=== PATIENT | male | born 1950 | race Caucasian/White ===

== ENCOUNTER → 2019-05-30 | Outpatient (CLI) | payer MEDICARE ==
[~2019-05-30] MED LIST: ACE65ERTAB PO; ACET-683 PO; ALLO100T PO; ASPI81CH33 PO; ASPI81TA26 PO; CITA40TA4 PO; NEUR600T PO; ONDA8TAB7 PO; PERCOCET PO; PRAV40TA2 PO; PRED20TA PO; PROC10TA4 PO; TAMS1CAP17 PO; TOPI1CAP4 PO; TOPI50TA9 PO
--- NOTE | 2019-05-30 14:14 | REP ---
Whole body radionuclide bone scan: History: Wedge compression fracture T9-T10. No comparison imaging. Technique: 21.7 mCi technetium 99m MDP is injected and standard whole body bone scan imaging was acquired. Scintigraphic findings: There is uptake in bilateral kidneys and the urinary bladder. There are multiple foci of abnormal uptake in the axial skeleton suggestive of skeletal metastatic disease. These include a large ring-like lesion in the iliac bone on the right side adjacent to the SI joints, a small focus in the intertrochanteric femur on the right, abnormal somewhat eccentric uptake in T12, slightly increased pedicle uptake on the right at L3, and foci of increased uptake at T11 and T10. There is suspicious uptake in the scapula on the left along its superior margin. There is a focus of increased uptake in or adjacent to the acromioclavicular joint on the right. There is abnormal uptake in the anterior end of the left first rib, the right anterior fifth and seventh ribs. Lastly, there is a focus of increased uptake in what appears to be the distal phalanx of the left fourth toe. This may be arthritic. Impression: Metastatic skeletal disease pattern. Electronically Signed by Bladimir Woodruff MD 05/30/2019 02:34 P
== END ==
LOC: M RAD 09:44
PROVIDERS: ATTEND Orthopaedic Surgery
DX: S22.070A Wedge compression fracture of T9-T10 vertebra, initial encounter for closed fracture (principal)
CPT/HCPCS: 78306; A9503

== ENCOUNTER 2019-06-09 11:43 | Inpatient (IN) | payer MEDICARE ==
[~2019-06-09] VITALS: Ht 172.7 cm; Wt 88.6 kg
[2019-06-09] MEDS ORDERED: ACE65ERTAB PO (12:15)
[2019-06-09] MEDS ORDERED: TAMS1CAP17 PO (12:15)
[2019-06-09] MEDS ORDERED: PRAV40TA2 PO (12:15)
[2019-06-09] MEDS ORDERED: NEUR600T PO (12:15)
[2019-06-09] MEDS ORDERED: ASPI81CH33 PO (12:15)
[2019-06-09] MEDS ORDERED: CITA40TA4 PO (12:15)
[2019-06-09] MEDS ORDERED: TOPI1CAP4 PO (12:15)
[2019-06-09] MEDS ORDERED: MORPHINE 4 MG/ML 1ML VIAL/SYRINGE (J2270) IV ONE (12:45)
[2019-06-09] MEDS: GASTROGRAFIN SOLUTION 30ML PO SCH ×2 (13:42→14:29)
[2019-06-09 14:02] LABS: INR 1.04; PROTHROMBIN TIME 13.3 SECONDS (11.8-14.0)
[2019-06-09 14:03] LABS: PARTIAL THROMBOPLASTIN TIME 20.1 SECONDS (25.0-38.4)
[2019-06-09 14:25] LABS: ALBUMIN 3.5 GM/DL (3.2-5.2); ALT/SGPT 43 U/L (12-78); BILIRUBIN,DIRECT < 0.1 MG/DL (0.0-0.2); BILIRUBIN,TOTAL 0.3 MG/DL (0.2-1.0); BLOOD UREA NITROGEN 28 MG/DL (7-18); CALCIUM LEVEL 9.9 MG/DL (8.8-10.2); CARBON DIOXIDE LEVEL 25 MEQ/L (21-32); CHLORIDE LEVEL 110 MEQ/L (98-107); CREATININE FOR GFR 0.81 MG/DL (0.70-1.30); GLOMERULAR FILTRATION RATE > 60.0 (>42); GLUCOSE, FASTING 103 MG/DL (70-100); LDH LACTATE DEHYDROGENASE 877 U/L (87-241); LIPASE 68 U/L (73-393); POTASSIUM SERUM 4.3 MEQ/L (3.5-5.1); SODIUM LEVEL 141 MEQ/L (136-145); TOTAL PROTEIN 7.9 GM/DL (6.4-8.2)
[2019-06-09 14:31] LABS: BASO % 0.2 % (0.0-1.0); EOS # 0.1 10^3/uL (0.0-0.5); EOS % 0.8 % (0.0-3.0); HEMATOCRIT 50.2 % (42.0-52.0); HEMOGLOBIN 16.7 g/dl (13.5-17.5); LYMPH # 2.3 10^3/uL (1.5-5.0); LYMPH % 19.9 % (24.0-44.0); MEAN CORPUSCULAR HEMOGLOBIN 31.2 pg (27.0-33.0); MEAN CORPUSCULAR HGB CONC 33.3 g/dl (32.0-36.5); MEAN CORPUSCULAR VOLUME 93.7 fl (80.0-96.0); MONO # 0.8 10^3/uL (0.0-0.8); MONO % 6.7 % (0.0-5.0); NEUTROPHILS # 8.5 10^3/uL (1.5-8.5); NEUTROPHILS % 71.9 % (36.0-66.0); PLATELET COUNT, AUTOMATED 174 10^3/uL (150-450); RED BLOOD COUNT 5.36 10^6/uL (4.30-6.10); WHITE BLOOD COUNT 11.8 10^3/uL (4.0-10.0)
[2019-06-09] MEDS ORDERED: ISOVUE-370 76% 100ML VIAL (Q9967) As Ordered ONE (14:42)
--- NOTE | 2019-06-09 15:28 | REP ---
CT thoracic spine: 06/09/2019. Indication: Thoracic pain. Metastatic disease. Comparison: No previous CT evaluations are available for direct comparison. Technique: Axial images of the thoracic spine were obtained following IV administration of Isovue 370. Coronal and sagittal images were provided. Findings: There is a pathologic T9 compression fracture with approximately 50% loss of craniocaudal height. There is abnormal soft tissue in the paraspinal region particularly on the left at this level. There is no retropulsion of fracture fragments into the spinal canal. Additional areas of heterogeneous bone density are present, particularly on the left of T12 consistent with metastatic disease without pathologic compression deformity. There are no areas of significant spinal canal narrowing detected. Please see dedicated CT chest report for additional details. Impression: Pathologic compression deformity of T9 as described. Additional metastatic disease of T12 without significant pathologic compression. Electronically Signed by Trav Camacho DO 06/09/2019 03:21 P
--- NOTE | 2019-06-09 16:26 | REP ---
CT CHEST WITH IV CONTRAST: TECHNIQUE: Axial contrast enhanced images from the thoracic inlet to the upper abdomen using 100 mL Isovue 370 intravenous contrast material with multiplanar reformations. There is a large right hilar and mediastinal mass with nodular extension into the adjacent right upper lobe. Mass at its epicenter measures approximately 6.3 x 7.2 cm. Adjacent enlarged lymph nodes are seen superior to the mass up to 3.6 x 1.9 cm just above the level of the aortic arch with two smaller lymph nodes more posteriorly, just posterior to the right subclavian artery. Calcified right hilar and subcarinal lymph nodes are present. There is no left hilar adenopathy. There is no axillary adenopathy. There are scattered atherosclerotic calcifications of the thoracic aorta without aneurysm. There is no evidence of cardiomegaly. There is no pleural or pericardial effusion. There is mild bibasilar fibro atelectatic change. There is diffuse peribronchial thickening of the right upper lobe with mild interstitial infiltrates superiorly. Central nodular confluent density is present along the superior portion of the dominant mass. A separate satellite nodule measures 1.5 cm in right suprahilar region. The dominant mass significantly compresses the superior vena cava but does not obstruct it. There is encasement of the pulmonary artery braches supplying the right upper lobe. The mass abuts the right upper lobe bronchus but does not encase it. Lytic lesion is seen centrally in the right scapula. This measures about 1.7 cm in diameter. There is a large area of lytic destruction of the medial aspect of the left scapula. There is moderate compression of the T9 vertebral body with metastatic involvement. There is mild compression of T12 vertebral body with metastatic involvement. There is a fracture of the right 8th rib. IMPRESSION: Large right hilar and mediastinal mass with adjacent nodular infiltration of the right upper lobe. There is diffuse right upper lobe peribronchial thickening and superior right upper lobe interstitial infiltrate. There is adjacent right superior mediastinal adenopathy. Significant compression of the superior vena cava with encasement of the right upper lobe pulmonary artery branch. Pathologic fractures of T9 and T12 vertebral bodies. Metastatic lesions are seen in the scapulae, left greater than right. Also noted is a fracture of the lateral aspect of the right 8th rib. Electronically Signed by José Manuel Orlando MD 06/11/2019 09:30 A
--- NOTE | 2019-06-09 16:46 | REP ---
REASON: Rectal bleeding. CONTRAST: 100 mL Isovue-370. PRIORS: None. There is an enhancing nodule in the right adrenal gland which measures 2.6 cm. There are bilateral renal cysts. The largest is on the right and measures 5.1 cm. There is an infrarenal abdominal aortic aneurysm measuring 3.4 cm in its greatest AP dimension. Heavy calcific atherosclerotic change is seen in the common iliac arteries. The liver and spleen are within normal limits. There are tiny hepatic cysts. There is a single cholelith noted. The pancreas is within normal limits. There is no evidence of free fluid or free air in the abdomen. The intraabdominal bowel loops and their mesenteries are within normal limits. There is a large left adrenal gland nodule which measures 3.3 cm and has very high Hounsfield density readings. Incidental scattered colonic diverticula are noted without pericolonic fatty infiltration. CT PELVIS: There is corpora amylacea. There is no free fluid or free air. There is sigmoid colon diverticulosis. Bone window technique throughout the exam shows the bones to be demineralized with chronic spinal, hip, sacroiliac joint degenerative changes. IMPRESSION:1. Bilateral adrenal gland nodules. I can not confirm benignity due to the high Hounsfield unit density readings. There are no precontrast enhanced images to review. I would recommend pre and post Gadolinium enhanced adrenal MRI. 2. There is at least one cholelith. 3. Infrarenal abdominal aortic aneurysm as described above. 4. Diverticulosis. 5. Other findings as described above. Electronically Signed by Iggy Hernandez DO 06/10/2019 10:25 A
[2019-06-09] MEDS ORDERED: ACET-683 PO (17:20)
[2019-06-09] MEDS ORDERED: ASPI81TA26 PO (17:20)
[2019-06-09] MEDS ORDERED: TOPI50TA9 PO (17:20)
[2019-06-09] MEDS ORDERED: PRAVASTATIN 20 MG TAB PO SCH (18:00)
[2019-06-09] MEDS ORDERED: ACETAMINOPHEN 500 MG TAB PO PRN (18:00)
--- NOTE | 2019-06-09 18:13 | HPEPDOC ---
[facility] Medical History & Physical Date of Admission Jun 09, 2019 Date of Service: Jun 09, 2019 History and Physical CHIEF COMPLAINT: bone pain HISTORY OF PRESENT ILLNESS: Patient is a 69M with PMH PAD s/p fem fem bypass and CAD s/p PCI presented to the ER with complaints with pain. He recently was at a different hospital with complaints of pain and was found to have vertebral compression fracture and was referred to ortho w/ Dr. Villegas. He continued to complained of multiple sites of bone pain and was sent for bone scan which was suggestive but diffuse metastatic lesions. He was sent to the ER for further workup which showed large R. hilar/mediastinal mass with lymphadenopathy with significant compression of the SVC. He reports no complaints apart from pain in his legs and L. arm suggestive of bone pain. He denies any significant chest pain, facial/arm swelling, significant SOB. Stated he is at his baseline otherwise. Denies any other symptoms. PAST MEDICAL HISTORY: Refer to HPI PAST SURGICAL HISTORY: Stent placement in legs PCI fem fem bypass SOCIAL HISTORY: Smokes 1ppd. Denies alcohol or drug use. FAMILY HISTORY: Father - DM Mother- stomach cancer ALLERGIES: Please see below. REVIEW OF SYSTEMS: 10 point review of system negative except as stated in HPI HOME MEDICATIONS: Please see below. PHYSICAL EXAMINATION: General: No acute distress, Alert Eyes: Normal sclera, EOMI, SHARON HENT: Atraumatic, neck supple, no neck vein distension, no facial plethora or edema Cardiovascular: Normal rate, normal rhythm. No murmurs appreciated. Pulmonary: Clear to auscultation b/l, no wheezing MSK: No extremity swelling, pain on palpation of legs and L. arm GI: Soft, nontender, nondistended Skin: Warm and dry Neuro: CN grossly intact. No focal deficits. Psych: oriented x 3 LABORATORY DATA: See below. IMAGING: CT Chest- IMPRESSION: Large right hilar and mediastinal mass with adjacent nodular infiltration of the right upper lobe. There is diffuse right upper lobe peribronchial thickening and superior right upper lobe interstitial infiltrate. There is adjacent right superior mediastinal adenopathy. Significant compression of the superior vena cava with encasement of the right upper lobe pulmonary artery branch. Pathologic fractures of T9 and T12 vertebral bodies. Metastatic lesions are seen in the scapulae, left greater than right. Also noted is a fracture of the lateral aspect of the right 8th rib. CT Thoracic spine- Impression: Pathologic compression deformity of T9 as described. Additional metastatic disease of T12 without significant pathologic compression. CT Abdomen/Pelvis- IMPRESSION: 1. Bilateral adrenal gland nodules. I can not confirm benignity due to the high Hounsfield unit density readings. There are no precontrast enhanced images to review. I would recommend pre and post Gadolinium enhanced adrenal MRI. 2. There is at least one cholelith. 3. Infrarenal abdominal aortic aneurysm as described above. 4. Diverticulosis. 5. Other findings as described above. MICROBIOLOGY: Please see below. ASSESSMENT AND PLAN: 1. SVC Compression - 2/[address] - Reported no symptoms suggestive of SVC compression. - HD stable, no significant SOB. - Grade 0. - Cardiothoracic consulted. 2. Lung mass - Likely metastatic lung ca, evident in bone scans. - Will need tissue biopsy for treatment. Pulmonology consulted for bronchoscopy in AM. 3. PAD - s/p stents in LLE. - Holding home medication at this time until patient no longer NPO. 4. CAD - Resume home medications when patient no longer NPO. - No active chest pain. Reported recent cardiac catherization with no coronary artery obstruction. Code status: Full code Vital Signs Vital Signs Date Time Temp Pulse Resp B/P (MAP) Pulse Ox O2 Delivery O2 Flow Rate FiO2 06/09/19 16:01 84 18 123/83 (96) 97 Room Air 06/09/19 11:44 99.0 Laboratory Data Labs 24H Laboratory Tests 2 06/09/19 13:39: Prothrombin Time 13.3, Prothromb Time International Ratio 1.04, Activated Partial Thromboplast Time 20.1L, Anion Gap 6L, Glomerular Filtration Rate > 6 0.0, Lactic Acid Level 1.2, Calcium Level 9.9, Total Bilirubin 0.3, Direct Bilirubin < 0.1, Aspartate Amino Transf (AST/SGOT) 38H, Alanine Aminotransferase (ALT/SGPT) 43, Alkaline Phosphatase 169H, Lactate Dehydrogenase 877H, Total Protein 7.9, Albumin 3.5, Albumin/Globulin Ratio 0.80L, Lipase 68L 06/09/19 14:17: Immature Granulocyte % (Auto) 0.5, Neutrophils (%) (Auto) 71.9H, Lymphocytes (%) (Auto) 19.9L, Monocytes (%) (Auto) 6.7H, Eosinophils (%) (Auto) 0.8, Basophils (%) (Auto) 0.2, Neutrophils # (Auto) 8.5, Lymphocytes # (Auto) 2.3, Monocytes # (Auto) 0.8, Eosinophils # (Auto) 0.1, Basophils # (Auto) 0.0, Nucleated Red Blood Cells % (auto) 0.0 CBC/BMP Laboratory Tests 06/09/19 13:39 06/09/19 14:17 Home Medications Scheduled Aspirin (Aspirin EC) 81 Mg Tablet.dr, 81 MG PO DAILY Citalopram Hydrobromide (Citalopram HBr) 40 Mg Tablet, 40 MG PO DAILY Gabapentin (Neurontin) 600 Mg Tablet, 600 MG PO TID TOOK HIS MORNING DOSE BUT STATES THAT HIS PCP WANTS TO TRY A DIFFERENT APPROACH TO HIS PAIN Pravastatin Sodium (Pravastatin Sodium) 40 Mg Tablet, 40 MG PO QPM WITH EVENING MEAL Tamsulosin Hcl (Tamsulosin HCl) 0.4 Mg Capsule, 0.4 MG PO DAILY Topiramate (Topiramate) 50 Mg Tablet, 50 MG PO QHS Scheduled PRN Acetaminophen (Acetaminophen) 500 Mg Tablet, 1,000 MG PO Q8H PRN for PAIN Allergies Coded Allergies: No Known Allergies (Unverified , 06/09/19) A-FIB/CHADSVASC A-FIB History Current/History of A-Fib/PAF?: No KLAUS GRISSOM MD Jun 09, 2019 18:13
[2019-06-09] MEDS ORDERED: MORPHINE 4 MG/ML 1ML VIAL/SYRINGE (J2270) IV PRN (18:15)
[2019-06-09 19:55] VITALS: BP 142/78
[2019-06-09] MEDS ORDERED: DOCUSATE SODIUM 100 MG CAP PO PRN (20:00)
[2019-06-09] MEDS ORDERED: SENNA 8.6 MG TAB (SENOKOT) PO PRN (20:00)
--- NOTE | 2019-06-09 20:04 | CR ---
DATE OF CONSULTATION: 06/09/2019 REASON FOR CONSULTATION: Abnormal chest CT with pending superior vena cava (SVC) syndrome. Mr. Stoner is a 69-year-old male that was admitted through the emergency room today after being worked up for back pain. There was concern on a recent bone scan for metastatic lesions to his back and therefore, he was sent to the emergency room. The patient has been having new onset of low back pain that he describes as really bad back pain for the past two months. He has been losing weight and has had a weight loss of 22 pounds in the past month because of what he describes as lack of appetite. He is a smoker, has had no increase in his shortness of breath or chest discomfort. He has bilateral chronic shoulder pain. He slept in a recliner in the past couple of weeks due to the pain in his back but he denies it is because of shortness of breath. However, he states he has always had trouble laying flat even since he was a child because of shortness of breath. He states he has never seen a journeyman pressman and has no known lung history. Denies any dizziness, change in vision or lightheadedness. He has a chronic cough that is worse at night. Describes a tickle in the back of his throat, attributes it to postnasal drip. He has not had any hemoptysis. No chest pain. PAST MEDICAL HISTORY: 1. Coronary artery disease status post stenting. 2. History of degenerative disc disease. 3. History of peripheral vascular disease status post fem-fem bypass with multiple arterial stenting of the lower extremities. 4. History of abdominal aortic aneurysm that has not been intervened on. 5. History cataract formation status post surgery. 6. History of nicotine dependence. 7. New onset of back pain. 8. History of left shoulder trauma. 9. Umbilical hernia repair. FAMILY HISTORY: Mother had stomach cancer. Father had myocardial infarction and diabetes. He had family members who of abdominal aortic aneurysm rupture. SOCIAL HISTORY: He denies any alcohol use. States he has an approximately 60 pack-year history of smoking. No illicit drug use. He has no pets at home. He does live with his , Isha. 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 He has no significant travel history. He was raised in [place]. REVIEW OF SYSTEMS: CONSTITUTIONAL: He has had a 22-pound weight loss, lack of appetite but no night sweats. He denies fever. CARDIAC: He has slept in a recliner as mentioned above. No palpitations. No lower extremity edema. No anginal discomfort. He does not experience anymore symptoms of claudication. He is exertionally dyspneic, states he is able to walk around a flat surface at his own pace but any exertional activities such as climbing stairs will cause him shortness breath. HEENT: He has had change in vision. No difficulty with swallowing. He has dentures. No difficulty with hearing. He wears glasses but no recent change in vision. No amaurosis fugax. PULMONARY: As per history of present illness (HPI). No history of tuberculosis, tuberculosis contacts. GASTROINTESTINAL (GI): No nausea or vomiting, but does have decrease in appetite. No constipation or abdominal pain. No blood in the stool. GENITOURINARY (): No pain or burning with urination. No hematuria or nocturia. ENDOCRINE: No history of diabetes. No increased thirst. No history of thyroid disease. No cold or hot intolerance. NEUROLOGIC: No unilateral weakness. No history of stroke, seizure or tremor. No recent head trauma. PSYCHIATRIC: No depression or mood swings. No anxiety. SKIN: No rash, jaundice or bruising. ALLERGY/IMMUNOLOGY: No known allergies. No history of asthma. No history of recurrent infections. SLEEP: No history of obstructive sleep apnea. Denies excessive daytime somnolence. PHYSICAL EXAMINATION: Temperature is 99.0, pulse is 89, respiratory rate is 18, blood pressure is 148/98 with a mean arterial pressure of 115, oxygen saturation is 97% on room air. HEENT: Sclerae clear and anicteric. Pupils equal and react to light. Mucous membranes are moist without lesions. Tongue is midline. Upper dentures are in place. Oropharynx without erythema or exudate. Mallampati 1. NECK: Supple. No tracheal deviation. I do not see any elevated jugular venous pulse (JVP). No carotid bruits. LYMPHATIC: No cervical, supraclavicular or axillary adenopathy. There is a lipoma in the left arm in the anterior medial aspect adjacent to the axilla. He states this has been there for 6-7 years. CHEST: There is no increased vascularity of the chest wall. There is a negative Bendena sign. I did lay the patient in the supine position and he was able to tolerate this without becoming orthopneic and without signs of central cyanosis. PULMONARY: Decreased breath sounds throughout with prolonged expiratory phase. There is a prolonged expiratory wheeze auscultated throughout both lung corona. I do not auscultate any rales or rhonchi. There is no dullness to percussion. CARDIAC: Regular S1, S2, distant without murmur, rub or gallop. No elevated JVP. No peripheral edema. ABDOMEN: Obese, soft, nontender, nondistended with a reducible umbilical hernia. There is also rectus diastasis. There is no discernible hepatosplenomegaly. No masses or hernia. EXTREMITIES: No cyanosis, clubbing or edema. Some chronic bronzing of the lower extremity bilaterally. Palpable pulses are present, radial and symmetric. Nails without clubbing or cyanosis. SKIN: Pale, as mentioned above with some chronic bronzing of the lower extremities. No new rashes. NEUROLOGIC: No unilateral weakness. No tremor. No myoclonus. Pupils are reactive. MUSCULOSKELETAL: Normal muscle tone for stated age. No evidence of joint effusion or recent fracture. The patient does have some limited motion of abduction of the upper extremities with shoulder pain in the left shoulder. LABORATORY EVALUATION: Shows a white blood cell count of 11.8, hemoglobin 16.7, hematocrit 50.2, platelet count 174. Chemistry shows a sodium 141, potassium 4.3, chloride is 110, bicarbonate of 25, BUN of 28, creatinine of 0.81 with a glucose of 103, lactic acid of 1.2, AST of 38, alkaline phosphatase of 169, lipase of 68, INR of 1.04. Chest CT: There is a large right paratracheal mediastinal mass that is measuring approximately 6 cm x 6.5 cm. It is adjacent to the right upper lobe. I believe there is also a mass in the right upper lobe which is approximately 2 cm. There is evidence of SVC compression within millimeters. There is also pulmonary artery compression. On thoracic films, there is evidence of compression of the T9 vertebral body with T12 metastatic involvement. There does appear to be a fracture of the right eighth rib. There appears to be possible bilateral adrenal involvement on the abdominal CT scan. IMPRESSION: 1. Abnormal chest CT with mediastinal mass, superior vena cava (SVC) compression with pending SVC syndrome. Currently, the patient does not have signs or symptoms of SVC syndrome but the appearance on his chest CT, there is very little contrast that could be passed in the SVC. Therefore, it is urgent for biopsy and treatment in order to decrease the risk of potential SVC syndrome. The patient has already eaten today and has been drinking. We will schedule for first thing in the morning for a biopsy with bronchoscopy, endobronchial ultrasound. The patient was consented. He understands the risk of bleeding, sore throat, cough, pneumothorax and . He understands the risk of injury to surrounding structures. Oncology, both medical and radiation, have already been alerted to this patient for urgent treatment. The patient will also likely need palliative treatment of the back pain. The most likely diagnosis of malignancy appears that this is a metastatic malignancy. I believe the patient will be in quite significant pain if biopsy was performed of the thoracic lesion. Therefore, endobronchial biopsy will be performed. 2. Back pain. I have added Percocet to his regimen possibly for some longer acting pain control. I have added steroids, one because of his wheezing and two because this may also help with his current pain and T9 compression. 3. Wheezing. I have added inhaled therapy to his regimen along with Solu-Medrol. Likely underlying chronic obstructive pulmonary disease given his history of smoking. 4. Smoking. Extensively counseled on smoking cessation. Thank you for this consultation. We will continue to follow this patient and plan and prepare for biopsy in the morning. DIAMANTE
--- NOTE | 2019-06-09 20:27 | CR ---
DATE OF CONSULTATION: 06/09/2019 The patient was seen at the request of Dr. Lovell of the hospitalist service for shortness of breath and a large mediastinal mass. HISTORY OF THE PRESENT ILLNESS: The patient is a 69-year-old white male who has been complaining of mid back pain for a number of weeks and who underwent workup with orthopedics, where he was found to have what looked to be metastatic axial skeletal disease on a bone scan. He has been becoming more progressively short of breath. He has difficulty pushing the cart around shopping, but is able to do the daily activities of living at home. He denies fever, chills, or sweats, but has lost about 22 pounds in weight. He denies chest pain or chest pressure. There is no dysphagia, but he has fatigue and markedly decreased appetite. He has a cough at night, which he describes as a tickle. It is not productive. He states that he had been sleeping in a recliner the last two months because of breathing. Nonetheless, he has never been able to lay flat ever since a child because of discomfort. PAST MEDICAL HISTORY: Peripheral vascular disease, status post arterial revascularizations. Coronary artery disease, status post stenting procedures. Degenerative disc disease. History of tobacco abuse of 30 pack years. By reports, abdominal aortic aneurysm, non-repaired. PAST SURGICAL HISTORY: As listed above. MEDICATIONS AT HOME: - Tylenol 500 mg every 8 hours as needed for pain - aspirin 81 mg daily - citalopram 40 mg daily - Neurontin 600 mg three times a day - pravastatin 40 mg nightly - tamsulosin 0.4 mg daily - topiramate 50 mg by mouth nightly. TRAVEL HISTORY: None to the [facility]. 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 EXPOSURES: No dogs, birds, or cats at home. HABITS: Has a 30-year pack history of smoking and still actively smoking. No alcohol or illicit drugs. 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 REVIEW OF SYSTEMS: Review of systems conducted by Dr. Montague. All systems are negative except those above referenced in the history of present illness. PHYSICAL EXAMINATION: Heart rate 89 with a regular rate and rhythm, respiratory rate 18 without the use of accessory muscles. He is 97% saturated on room air, and his blood pressure is 136/101 to 123/83. Temperature is 99.0. General: Well-developed, well-nourished white male in no acute distress but looking chronically ill and fatigued. Eyes: Pupils equal, round, and reactive to light. Extraocular muscles intact. Sclerae not icteric. Nose without deformity. Mouth shows his mucous membranes to be pink and moist. Lips and commissures without lesions. There is no thrush. He has upper dentures. The head is normocephalic. Neck is supple. There is no jugular venous distention. No subcutaneous emphysema. Trachea is midline. There is no cervical lymphadenopathy. He has 2+ carotid upstrokes. I did not elicit bruits. Lungs show inspiratory rales, particularly at the right base and wheezes during expiration heard best anteriorly on the right and the left superiorly. Percussion note is full to the diaphragm. Cardiac exam is without murmurs, clicks, gallops or rubs. I cannot feel his point of maximum impulse (PMI). S1, S2 are normal. Abdomen is soft, nontender. Bowel sounds are positive. There is no hepatomegaly. There is no costovertebral angle tenderness, but he does have lower spinal tenderness in the lower thoracic and lumbar spines. Extremities show no pretibial edema. No calf tenderness. No differential swelling of the upper extremities. It should be noted that there is no caput medusae over the chest, and his head is not swollen. Pulses shows a 2+ dorsalis pedis on the left and a trace of dorsalis pedis on the right. Neurologic: Shows II-XII intact along with gross motor and gross sensation intact. Gait is not tested. Psychiatric shows him to be awake and alert, oriented times three with appropriate mood and affect and conversational. His white count today is 11.8 with a hemoglobin and hematocrit of 16.7 and 50.2 respectively. Platelet count is 174. Differential shows 71% neutrophils, 19% lymphocytes, 6% monocytes. There are no immature forms. No toxic granulations. Chemistries show essentially normal electrolytes with a BUN and creatinine of 28 and 0.81, glucose of 103 with a calcium of 9.9 and a corresponding albumin of 3.5. His corrected calcium is 10.3, making him slightly hypercalcemic. AST is slightly elevated at 38 with a normal ALT. LDH is 877. PT/INR of 13.3 and 1.04 respectively with a PTT of 20.1 seconds. A chest x-ray is pending. His chest CT shows a very large mediastinal mass, which is impinging upon the vena cava. The vena cava measures 2 mm x 2 cm, as a thin sliver. He has a fairly large mass measuring 6 x 6 cm in diameter, and it extends into the lung. It is constricting the pulmonary artery on the right side at its take-off from the main pulmonary artery to 2 mm. He does look to have calcified nodes, both hilar and subcarinal. He has some emphysematous changes in the upper lobes. There is an infiltrative lesion in the apical segment of the upper lobe in addition to the large mass, also a large mass most likely in the middle lobe, no large mass in the upper lobe which is constricting the first order segmental bronchi. There looks to be a right adrenal mass, and the left adrenal has a normal configuration. There are a number of liver lucencies; I cannot tell whether these are cysts or metastases. The resolution is not great on the liver windows. His bone scan done on 05/30/2019 shows multiple axial points of uptake, including what looks to be T12 and T10 with numerous rib lucencies. Rib lucencies are on both sides. They no doubt represent rib and vertebral metastases. IMPRESSION: 1. Impending superior vena cava (SVC) syndrome. 2. Large mass, mediastinum and right lung. 3. Peripheral vascular disease. 4. Coronary artery disease. 5. Diffuse axial metastatic disease. 6. Hyperlipidemia. 7. Hypercalcemia. PLAN AND DISCUSSION: I have coordinated with the director of the cancer center, Salma Miles, as to our ability to offer him definitive treatment tomorrow, and she has answered to the affirmative. Oncology has been consulted by the hospitalist service already. Both radiation and medical oncology are on notice. Our responsibility is to establish a diagnosis, and I have asked Dr. Montague to opine of the doability of bronchoscopy and endobronchial ultrasound (EBUS), and she thinks she can obtain a diagnosis by that method rather than a mediastinoscopy. We have arranged for him to go to the operating room 8:30 tomorrow, and we will have pathology on standby for frozen section. Once establishing a diagnosis, oncology can decide what treatment modalities are the best. Right now, he does not have clinical SVC syndrome, and we have the luxury of overnight to do the diagnostic workup in the morning. He will be made nothing by mouth.
[2019-06-09] MEDS: MORPHINE 4 MG/ML 1ML VIAL/SYRINGE (J2270) IV PRN ×2 (20:30→23:49)
[2019-06-09] MEDS: GABAPENTIN 300 MG CAP PO SCH (20:31)
[2019-06-09] MEDS ORDERED: SLF 3 ML SYR IV PRN (20:45)
[2019-06-09] MEDS ORDERED: TOPIRAMATE (TopAMAX) 25 MG TAB PO SCH (21:00)
[2019-06-09] MEDS: methylPREDNISolone INJ 40 MG/1 ML VIAL (J2920) IV SCH (21:23)
[2019-06-09] MEDS: SLF 3 ML SYR IV SCH (21:23)
[2019-06-09] MEDS: PERCOCET 5MG/325MG TAB PO PRN (22:45)
[2019-06-10] VITALS (9 sets, daily range): BP systolic 127–154; BP diastolic 70–92
[2019-06-10] MEDS: IPRATROPIUM 0.5MG/ALBUTEROL 2.5MG INH SOL UD 3ML (DUONEB)(J7620) NEB SCH ×4 (02:00→14:00)
[2019-06-10] MEDS: ADVAIR HFA 230/21MCG INHALER INH SCH ×2 (02:11→07:30)
[2019-06-10] MEDS: methylPREDNISolone INJ 40 MG/1 ML VIAL (J2920) IV SCH ×2 (05:12→14:25)
[2019-06-10] MEDS: SLF 3 ML SYR IV SCH ×2 (05:13→14:26)
[2019-06-10] MEDS: MORPHINE 4 MG/ML 1ML VIAL/SYRINGE (J2270) IV PRN ×3 (05:13→14:05)
[2019-06-10 06:38] LABS: HEMATOCRIT 47.4 % (42.0-52.0); HEMOGLOBIN 16.1 g/dl (13.5-17.5); MEAN CORPUSCULAR HEMOGLOBIN 31.6 pg (27.0-33.0); MEAN CORPUSCULAR VOLUME 92.9 fl (80.0-96.0); PLATELET COUNT, AUTOMATED 171 10^3/uL (150-450); WHITE BLOOD COUNT 8.3 10^3/uL (4.0-10.0)
[2019-06-10 06:58] LABS: BLOOD UREA NITROGEN 27 MG/DL (7-18); CALCIUM LEVEL 9.8 MG/DL (8.8-10.2); CARBON DIOXIDE LEVEL 25 MEQ/L (21-32); CHLORIDE LEVEL 106 MEQ/L (98-107); CREATININE FOR GFR 0.93 MG/DL (0.70-1.30); GLOMERULAR FILTRATION RATE > 60.0 (>42); GLUCOSE, FASTING 162 MG/DL (70-100); SODIUM LEVEL 138 MEQ/L (136-145)
--- NOTE | 2019-06-10 07:26 | REP ---
CHEST, TWO VIEWS: Two views of the chest are performed. Large right hilar mass is visualized. Right upper lobe interstitial infiltrate is present. The heart is not enlarged. Moderate compression of T9 is noted. There are calcified mediastinal lymph nodes. IMPRESSION: Large right hilar mass also involving the right mediastinum. Moderate compression of T9. Electronically Signed by José Manuel Orlando MD 06/11/2019 11:36 A
[2019-06-10] MEDS ORDERED: LIDOCAINE 1% MDV 20ML VIAL As Ordered ONE ×2 (07:50→15:04)
[2019-06-10] MEDS ORDERED: CETACAINE SPRAY 5GM As Ordered ONE (07:50)
[2019-06-10] MEDS ORDERED: THROMBIN SOLN 5,000 UNITS VIAL As Ordered ONE (07:50)
[2019-06-10] MEDS ORDERED: PROPOFOL 200 MG/20 ML VIAL As Ordered ONE (07:50)
[2019-06-10] MEDS ORDERED: ROCURONIUM BROMIDE 50 MG/5 ML VIAL As Ordered ONE (07:51)
[2019-06-10] MEDS ORDERED: LIDOCAINE VISCOUS 2% SOLN 15ML UDC As Ordered ONE (07:51)
[2019-06-10] MEDS ORDERED: LIDOCAINE 2% INJ 100 MG/5 ML SYRINGE As Ordered ONE (07:51)
[2019-06-10] MEDS ORDERED: EPINEPHrine 1MG/10ML SYRINGE 1.5IN As Ordered ONE (07:51)
[2019-06-10] MEDS ORDERED: dexameTHASONE 4 MG/ML 1ML VIAL (J1100) As Ordered ONE (07:55)
[2019-06-10] MEDS ORDERED: ONDANSETRON 4MG/2ML VIAL (J2405) As Ordered ONE (07:55)
[2019-06-10] MEDS ORDERED: fentaNYL 100 MCG/2 ML INJECTION (J3010) As Ordered ONE ×2 (08:21→15:04)
[2019-06-10] MEDS ORDERED: MIDAZOLAM INJ 2 MG/2 ML VIAL (J2250) As Ordered ONE ×2 (08:24→15:04)
[2019-06-10] MEDS ORDERED: LIDOCAINE 2% INJ 100 MG/5 ML SDV (FOR ANES.) As Ordered ONE (08:35)
[2019-06-10] MEDS ORDERED: CitaloPRAM (CeleXA) 20 MG TAB PO SCH (09:00)
[2019-06-10] MEDS ORDERED: TAMSULOSIN 0.4 MG CAP PO SCH (09:00)
--- NOTE | 2019-06-10 09:47 | RO ---
DATE OF PROCEDURE: 06/10/2019 PROCEDURE: Abnormal chest CT, mediastinal mass pending SVC syndrome. POSTPROCEDURE DIAGNOSIS: Abnormal chest CT, mediastinal mass pending SVC syndrome. FINDINGS: Extrinsically compressed airways. PROCEDURE: Bronchoscopy with endobronchial ultrasound. PROCEDURALIST: Dr. Montague ANESTHESIA: General. GUT DROPPER: None. SPECIMENS OBTAINED: 1. Fine-needle aspiration of right paratracheal mass under endobronchial ultrasound. ESTIMATED BLOOD LOSS: Minimal. No replaced. COMPLICATIONS: No observed complications. DRAINS: No drains. DESCRIPTION OF PROCEDURE: After informed consent was reviewed with the patient in preoperative area he was brought back to OR number six. Anesthesia was initiated with an 8.5 endotracheal tube. Cetacaine spray was used to anesthetize the airway. Bronchoscope was then inserted into the airway after time-out was performed with two patient identifiers identifying correct site, correct position. The airways were extrinsically compressed trachea was fairly midline. Mabel was full right and left bronchus had thin mucous secretions throughout both airways. The right upper lobe was extrinsically compressed airways were swollen and no endobronchial lesions. RB 1 through 3 were normal without endobronchial lesions. The spur between the right upper lobe and the bronchus intermedius was splayed full minimal mucosal abnormalities. RB 4 through 10 were normal without endobronchial lesions LB 1 through 10 normal without endobronchial lesions. Minimal amounts of mucus. After all airways were suctioned bronchoscope was then retracted and the endobronchial ultrasound was inserted. There was an enlarged subcarinal node and an enlarged paratracheal mass. The paratracheal mass was over 5 cm based on the measurement from the endobronchial ultrasound. Biopsies were taken of the right paratracheal mass. On-site cytology suggested adequate sampling. After adequate sampling was obtained the endobronchial ultrasound was removed the 1T190 bronchoscope was reinserted all airways were suctioned. Hemostasis was assured and the bronchoscope was removed. The patient is extubated in recovery. There were no observed complications however postprocedure chest x-ray is still pending. [facility]
[2019-06-10] MEDS ORDERED: MORPHINE 4 MG/ML 1ML VIAL/SYRINGE (J2270) As Ordered ONE (09:59)
--- NOTE | 2019-06-10 10:04 | REP ---
Single view chest: 06/10/2019. Indication: New postoperative assessment. Comparison: Yesterday. Findings: There is no pneumothorax. No significant pleural effusion is present. Right hilar mass and patchy air space consolidations are noted. Impression: Large right hilar mass. No pneumothorax. Electronically Signed by Trav Camacho DO 06/10/2019 09:55 A
[2019-06-10] MEDS ORDERED: LR 1,000 ML IV SCH (10:15)
[2019-06-10] MEDS ORDERED: ONDANSETRON 4MG/2ML VIAL (J2405) IV PRN (10:15)
[2019-06-10] MEDS ORDERED: fentaNYL 100 MCG/2 ML INJECTION (J3010) IV PRN (10:30)
[2019-06-10] MEDS: GABAPENTIN 300 MG CAP PO SCH (10:53)
[2019-06-10] MEDS: PERCOCET 5MG/325MG TAB PO PRN ×2 (11:44→17:37)
[2019-06-10] MEDS ORDERED: NS 1,000 ML IV SCH (12:00)
--- NOTE | 2019-06-10 12:35 | CR ---
DATE OF CONSULTATION: 06/10/2019 REASON FOR THE CONSULT: New diagnosis of lung cancer. HISTORY OF PRESENT ILLNESS: This 69-year-old male, heavy smoker. He was admitted through the emergency room because of severe back pain and progressive shortness of breath. There was concern about a recent bone scan done as an outpatient, which showed metastatic lesion in his back, and that is why he was sent to the emergency room. He has had this back pain for the last 2 months with weight loss of about 22 pounds in the past month with loss of appetite. He is a heavy smoker of a pack per day for maybe the last 50 years. PAST MEDICAL HISTORY: Coronary artery disease. History of degenerative disc disease. Peripheral vascular disease, status post femoral-femoral bypass with multiple arterial stents of the lower extremities. History of abdominal aortic aneurysm that has not been operated upon. SOCIAL HISTORY: Is positive for smoking. REVIEW OF SYSTEMS: Positive for weight loss and back pain. PHYSICAL EXAM: He has normal vital signs. Chest shows normal breath sounds. No wheezes, rhonchi, or crackles. Heart exam revealed normal S1, S2, with no murmur. Abdomen showed no tenderness or rigidity. No organomegaly. LABS: Showed a white count of 11.8, hemoglobin of 16, hematocrit of 50, and platelet count 174. Chemistry showed sodium 141, potassium 4.3, chloride 110, and bicarbonate 25, BUN of 28, creatinine 0.8. The CT of the chest showed large right paratracheal mediastinal mass measuring approximately 6 cm x 8 x 5 cm adjacent to the right upper lobe. There is also pulmonary artery compression. On the thoracic films, there is evidence of compression of the T9 vertebral body with T12 metastatic involvement. Possible also, there is bilateral adrenal involvement in the abdomen CT abdomen. Immpression of the previous bone scan, done on 05/30/2019 showed increased uptake in multiple areas of the skeletal bone, mostly on T11 and T10, in addition to suspicious increased uptake in the scapula, suggestive of metastatic disease. ASSESSMENT AND PLAN: Patient was seen at the bedside with radiation oncology, and had a lengthy discussion with the patient. It does not appear that the patient is in acute respiratory distress or acute superior vena caval obstruction. Right now, clinically, there is no engorged vein or dilated anterior chest wall vein or swelling of the face. From my understanding, bronchoscopy was done today, and fine needle aspiration was done from the mass. A preliminary was small cell lung cancer. I had a lengthy discussion with the patient regarding possible treatment options. We are going to await the final pathology report and, most likely, the patient is going to require chemotherapy. We are going to insert a port in him for chemotherapy. The case was discussed with radiation oncology. Apparently, the patient has extensive stage small cell lung cancer, and the role of radiation therapy is for palliative pain to the back if needed. We are going to evaluate the need for inpatient chemotherapy versus giving the patient an appointment as outpatient for further chemotherapy.
[2019-06-10] MEDS ORDERED: PRED20TA PO (14:39)
[2019-06-10] MEDS ORDERED: diphenhydrAMINE INJ 50MG/ML VIAL (J1200) As Ordered ONE (15:03)
[2019-06-10] MEDS ORDERED: ceFAZolin 1GM INJ (J0690 PER 500MG) As Ordered ONE (15:04)
--- NOTE | 2019-06-10 15:04 | IRMSE ---
[facility] IR Moderate Sedation Eval. Date and Time Date: Jun 10, 2019 Time: 15:03 ASA Classification ASA Classification: II-Mild systemic disease Mallampati Score: I, II NPO: Yes Obstructive Sleep Apnea: No Interval Plan: moderate sedation SHINE BARTHOLOMEW MD Jun 10, 2019 15:04
--- NOTE | 2019-06-10 16:26 | POST-OPPD ---
Postoperative Procedure Note Date Of Procedure: Jun 10, 2019 Time Of Procedure: 16:25 PREOPERATIVE DIAGNOSIS: lung ca POSTOPERATIVE DIAGNOSIS: lung ca FINDINGS: patent right IJ PROCEDURE: right side port. ready to use. SURGEON: stuart ANESTHESIA: mod sed ESTIMATED BLOOD LOSS: < 5 ml COMPLICATIONS: none POSTOPERATIVE CONDITION: stable SHINE BARTHOLOMEW MD Jun 10, 2019 16:26
[2019-06-10] MEDS ORDERED: PERCOCET PO (17:04)
--- NOTE | 2019-06-10 19:11 | DS.PDOC ---
Discharge Summary General Date of Admission Jun 09, 2019 at 17:51 Date of Discharge 06/10/19 Discharge Summary PROCEDURES PERFORMED DURING STAY: [None]. ADMITTING DIAGNOSES: 1. Metastatic small cell lung cancer 2. PAD 3. CAD 4. SVC compression 1. Metastatic small cell lung cancer 2. PAD 3. CAD 4. SVC Compression COMPLICATIONS/CHIEF COMPLAINT: Lung Cancer Metastatic To Bone. HISTORY OF PRESENT ILLNESS: Patient is a 69M with PMH PAD s/p fem fem bypass and CAD s/p PCI presented to the ER with complaints with pain. He recently was at a different hospital with complaints of pain and was found to have vertebral compression fracture and was referred to ortho w/ Dr. Villegas. He continued to complained of multiple sites of bone pain and was sent for bone scan which was suggestive but diffuse metastati c lesions. He was sent to the ER for further workup which showed large R. hilar/mediastinal mass with lymphadenopathy with significant compression of the SVC. He reports no complaints apart from pain in his legs and L. arm suggestive of bone pain. He denies any significant chest pain, facial/arm swelling, significant SOB. Stated he is at his baseline otherwise. Denies any other symptoms. " HOSPITAL COURSE: Patient was evaluated urgently by cardiothoracic surgery as well as pulmonary at admission for large lung mass in R. hilar and mediastinal with SVC compression. Despite imaging, patient reports feeling at baseline apart from his bone pains. Denies any SOB or extremity/facial swellings. He underwent bronchoscopy with biopsy with prelim cytology showing small cell lung cancer. Subsequently evaluated by medical oncology and radiation oncology. Given that patient is stable at this time, it is recommended that patient get chemo port inserted as soon as possible for initiation of chemotherapy as outpatient. He underwent port placement the same day as bronchoscopy and still has no complaints apart from ongoing bone pain. Patient is discharged to f/u PMD, as well as oncology in the morning for follow up and hopefully initiation of chemotherapy. DISCHARGE MEDICATIONS: Please see below. ALLERGIES: Please see below. PHYSICAL EXAMINATION ON DISCHARGE: VITAL SIGNS: Please see below. General: No acute distress, Alert Eyes: Normal sclera, EOMI, SHARON HENT: Atraumatic, neck supple, no neck vein distension, no facial plethora or edema Cardiovascular: Normal rate, normal rhythm. No murmurs appreciated. Pulmonary: Clear to auscultation b/l, no wheezing MSK: No extremity swelling, pain on palpation of legs and L. arm GI: Soft, nontender, nondistended Skin: Warm and dry Neuro: CN grossly intact. No focal deficits. Psych: oriented x 3 LABORATORY DATA: Please see below. IMAGING: CT Chest- IMPRESSION: Large right hilar and mediastinal mass with adjacent nodular infiltration of the right upper lobe. There is diffuse right upper lobe peribronchial thickening and superior right upper lobe interstitial infiltrate. There is adjacent right superior mediastinal adenopathy. Significant compression of the superior vena cava with encasement of the right upper lobe pulmonary artery branch. Pathologic fractures of T9 and T12 vertebral bodies. Metastatic lesions are seen in the scapulae, left greater than right. Also noted is a fracture of the lateral aspect of the right 8th rib. CT Thoracic spine- Impression: Pathologic compression deformity of T9 as described. Additional metastatic disease of T12 without significant pathologic compression. CT Abdomen/Pelvis- IMPRESSION: 1. Bilateral adrenal gland nodules. I can not confirm benignity due to the high Hounsfield unit density readings. There are no precontrast enhanced images to review. I would recommend pre and post Gadolinium enhanced adrenal MRI. 2. There is at least one cholelith. 3. Infrarenal abdominal aortic aneurysm as described above. 4. Diverticulosis. 5. Other findings as described above. PROGNOSIS: POOR ACTIVITY: [As tolerated]. DIET: Regular diet DISCHARGE PLAN: f/u with Oncology in the morning for follow up and hopefully can start chemotherapy then f/u PMD DISPOSITION: 01 Home, Self-Care. DISCHARGE INSTRUCTIONS: f/u with Oncology in the morning for follow up and hopefully can start chemotherapy then f/u PMD ITEMS TO FOLLOWUP ON ON OUTPATIENT: Final pathology report from bronchoscopy DISCHARGE CONDITION: [Stable]. TIME SPENT ON DISCHARGE: 35 minutes. Vital Signs/I&Os Vital Signs Date Time Temp Pulse Resp B/P (MAP) Pulse Ox O2 Delivery O2 Flow Rate FiO2 06/10/19 17:37 18 Room Air 06/10/19 17:00 98.0 86 131/70 (90) 92 06/10/19 16:35 3 06/10/19 10:18 40 I&O- Last 24 Hours up to 6 AM 06/10/19 06:00 Intake Total 0 ml Output Total 450 ml Balance -450 ml Laboratory Data Labs 24H Laboratory Tests 2 06/09/19 21:54: Urine Color YELLOW, Urine Appearance CLEAR, Urine pH 5.0, Urine Specific Walters 1.044, Urine Protein NEGATIVE, Urine Glucose (UA) NEGATIVE, Urine Ketones NE GATIVE, Urine Blood NEGATIVE, Urine Nitrite NEGATIVE, Urine Bilirubin NEGATIVE, Urine Urobilinogen 0.2, Urine Leukocyte Esterase 1+H, Urine WBC (Auto) 3, Urine RBC (Auto) 1, Urine Hyaline Casts (Auto) 0, Urine Bacteria (Auto) NEGATIVE, Urine Squamous Epithelial Cells 0, Urine Uric Acid Crystals (Auto) SMALL, Urine Mucus (Auto) SMALL, Urine Sperm (Auto) 06/10/19 06:09: Nucleated Red Blood Cells % (auto) 0.0, Anion Gap 7L, Glomerular Filtration Rate > 60.0, Calcium Level 9.8 CBC/BMP Laboratory Tests 06/10/19 06:09 Microbiology Microbiology 06/09/19 Urine Culture, Received Pending Discharge Medications Scheduled Aspirin (Aspirin EC) 81 Mg Tablet.dr, 81 MG PO DAILY, (Reported) Citalopram Hydrobromide (Citalopram HBr) 40 Mg Tablet, 40 MG PO DAILY, (Reported) Gabapentin (Neurontin) 600 Mg Tablet, 600 MG PO TID, (Reported) TOOK HIS MORNING DOSE BUT STATES THAT HIS PCP WANTS TO TRY A DIFFERENT APPROACH TO HIS PAIN Pravastatin Sodium (Pravastatin Sodium) 40 Mg Tablet, 40 MG PO QPM, (Reported) WITH EVENING MEAL Prednisone (Prednisone) 20 Mg Tablet, 40 MG PO DAILY Tamsulosin Hcl (Tamsulosin HCl) 0.4 Mg Capsule, 0.4 MG PO DAILY, (Reported) Topiramate (Topiramate) 50 Mg Tablet, 50 MG PO QHS, (Reported) Scheduled PRN Acetaminophen (Acetaminophen) 500 Mg Tablet, 1,000 MG PO Q8H PRN for PAIN, (Reported) Oxycodone/Acetaminophen (Oxycodone-Acetaminophen 5-325) 1 Each Tablet, 1 TAB PO Q4HP PRN for MILD/MODERATE PAIN (PS 1-7) Allergies Coded Allergies: No Known Allergies (Unverified , 06/09/19) KLAUS GRISSOM MD Jun 10, 2019 19:11
--- NOTE | 2019-06-11 08:31 | REP ---
IR Ultrasound and fluoroscopy-guided port placement. IR Ultrasound of the neck. Clinical information: Lung ca. Physician: Dr. Nielsen. Procedure: The patient was advised of the benefits, risks, and alternatives of the procedure and informed consent was obtained. A time-out was performed with verification of the patient's name, MRN, site of procedure and type of procedure to be performed. The patient was positioned in the supine position on the angiographic table. The site was prepped and draped in the usual sterile fashion. Moderate sedation was not performed due to patient's respiratory status. The physician spent 45 minutes of continuous face to face time with the patient. Ultrasound of the neck reveals a patent and compressible right internal jugular vein. A blow pit helper radiograph reveals no gross abnormality. The neck and anterior chest wall were anesthetized with lidocaine. The right internal jugular vein was accessed using a microintroducer needle under ultrasound guidance, via a lateral approach. An 018 wire was advanced into the superior vena cava, the needle was removed and a microsheath was placed. An Amplatz wire was then passed into the inferior vena cava. An incision at the internal jugular vein access site and anterior chest wall were made using a scalpel. An incision was made at the anterior chest wall. A small pocket was created using a combination of blunt and sharp dissection. A tunneling device was then used to pass the catheter from the pocket to the neck puncture site. An 8-[employer] smart power port was then positioned in the pocket. The catheter was then measured and cut. The introducer sheath was exchanged for a peel-away sheath. The catheter was passed through the peel-away sheath into the internal jugular vein and the peel-away sheath was removed. The port tip was positioned at the right atrium. The port was then accessed with a Lama needle. The port flushes and aspirates well. The puncture site in the neck was closed. The chest wall incision was then closed with 2-0 Vicryl and 4-0 Monocryl. Glue and Steri-Strips were applied. A sterile dressing was then applied. The patient tolerated the procedure well and was returned to the PRU in stable condition. Estimated blood loss: <5 ml. Complications: None. Conclusion: 1. Successful placement of an 8-[place] [employer] smart power port via the right internal jugular vein. The port is ready for immediate use. 2. Patient to follow up in IR clinic in 2 weeks. Thank you for this referral. Electronically Signed by Priscilla Nielsen MD 06/11/2019 08:30 A
--- NOTE | 2019-06-11 09:56 | CR ---
NEW PATIENT RADIATION ONCOLOGY CONSULTATION DATE: 06/10/2019 CHART NUMBER: [id number] FOR: Dr. 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 STAGE: Extensive. ICD-10 CODE: 34.90. ECOG PERFORMANCE STATUS: 1. HISTORY OF PRESENT ILLNESS: The patient is 69 years old and is status post femoral bypass for a coronary artery disease as well as stent placement. He has been complaining of pain for the last several weeks becoming profoundly more intense. He was found by x-ray at a different hospital to have a vertebral compression fracture and was referred to ortho and seen by Dr. Villegas. His bone pain was primarily in his back but was actually involving multiple areas of his skeletal system and a bone scan was suggested multiple diffuse metastatic lesions. He was therefore sent to the emergency room which revealed a large hilar/mediastinal mass with adenopathy and significant compression of the superior vena cava SVC. He did not relate to any other new complaints with the exception of the quite severe exacerbating a progress of pain. He did not show any significant signs of dyspnea and had no venous distension facial swelling to support a clinical diagnosis of a superior vena cava syndrome even though radiographically there was evidence of compromise and compression of the superior vena cava. He had pain in his legs and his left arm. He was seen by Dr. Avendano who suggested that the patient undergo a bronchoscopy with biopsy. Dr. Reno Montague saw the patient this morning and performed a biopsy and according to cytologic evaluation it is suggestive of a small cell carcinoma. He is referred to us today for evaluation of radiotherapy. He is also seeing Dr. Blackwell at this time. PAST MEDICAL HEALTH: The patient has a long history of smoking and a history of vascular disease and a status post femoral-femoral bypass and CAD. He has COPD and denies any other major symptoms at this time. The pain, however is quite debilitating. PAST SURGICAL HEALTH: Stent placement in his legs, percutaneous coronary intervention (PCI), fem-fem bypass. SOCIAL HISTORY: He smokes one pack per day for virtually all of his adult life, sometimes smokes more sometimes slightly less. He denies alcohol or recreational drug usage. FAMILY HISTORY: His father had diabetes. Mother with stomach cancer. ALLERGIES: No known drug allergies. MEDICATIONS: - aspirin 81 mg by mouth daily - citalopram 40 mg tablets daily - gabapentin 600 mg tablet by mouth three times a day - pravastatin 40 mg by mouth every evening - tamsulosin 0.4 mg capsule daily - topiramate 50 mg by mouth at bedtime - acetaminophen as needed pain LABORATORY DATA AND/OR X-RAY FINDINGS: CT scan of the abdomen and pelvis revealed bilateral adrenal gland nodules, abdominal aortic aneurysm, diverticulosis. CT scan of the thoracic spine revealed a pathologic compression of T9 with additional what appears to be metastatic disease involving T10 without any cord compression. CT scan of the chest revealed a large hilar mass and mediastinal mass with adjacent nodular infiltration of the right upper lobe. There was diffuse right upper lobe peribronchial thickening with superior right upper lobe interstitial infiltrates. There was noted to be adjacent right superior mediastinal lymphadenopathy. There was significant compression of the superior vena cava with encasement of the right upper lobe pulmonary artery branch. Pathologic fractures T9, T12. Metastatic lesions seen in the scapula, left greater than the right also a fracture of the lateral aspect of the right 8th rib. REVIEW OF SYSTEMS: Respiratory: The patient may have some respiratory symptoms with a only minimal cough. He does not report any significant dyspnea. He denies hemoptysis, hiccups. He does have some pleuritic pain but denies wheezing. Psychiatric: Denies delusions, hallucinations, mood changes, mood swings. Neurologic: He denies any disorientation, dizziness, gait problems, headaches, insomnia, memory loss, neuropathy, paralysis, seizures, sensory problems or stroke. He specifically denies any signs which would point to a cord compression. Integumentary: He denies alopecia, blisters, bruising, dry skin, facial burning, problems with the fingernails or toenails, photosensitivity, pruritus, rashes or urticaria. Genitourinary: He has some occasional dysuria, occasional frequency, denies hematuria, impotence, incontinence, nocturia, renal stone disease, retrograde ejaculation, scrotal swelling, urgency or changes in urine color. Gastrointestinal: Denies significant changes in bowel habits with occasional constipation. Denies diarrhea, heartburn, hematemesis, hematochezia, hemorrhoids, melanin, nausea, pain, early satiety, or vomiting. HEENT: Denies ear pain, epistaxis, esophagitis, hearing ability, dry mouth, oral bleeding, otitis, sinusitis, sputum production, stomatitis or altered taste. Constitutional: The patient has a great deal of pain but notices a decreased appetite with fatigue. No fevers are reported. He does have some lethargy. Denies malaise or night sweats. Denies rigors, but has had a possible mild weight change. Cardiovascular: The patient has peripheral atherosclerotic cardiovascular disease but denies any recent arrhythmias. He has some chest pain perhaps related to his bone metastasis. He denies significant dyspnea or edema. He denies orthopnea or palpitations. ALLERGIC/IMMUNOLOGIC: He denies allergies or adverse reactions. EXAMINATION FINDINGS: Vital signs: Obtained from the chart, temperature 99.0, pulse 84, respirations 18, BP 123/83, O2 saturation 97% on room air. HEENT: Normocephalic. EOMs intact. PERRLA. Fundi benign. Lymphatics: No palpable peripheral lymphadenopathy is appreciated. Lungs: Are diminished bilaterally. Heart: Regular without murmurs. Abdomen: Without evidence of hepatomegaly, masses, deep abdominal tenderness. Extremities: He has significant pain and some percussive tenderness in his bilateral shoulder region as well as back. Neurologic: Examination appears to be grossly physiologic and nonfocal with no signs of a spinal cord compression. Thorax: There is no evidence of venous distension or swelling to indicate a superior vena cava syndrome nor is there evidence of facial edema. IMPRESSION: Clinically positive for a lung primary malignancy most compatible histopathologically (cytology) with a small cell carcinoma. The patient is currently unstaged. My strong assumption is that this is most likely extensive disease with metastasis to bone and perhaps bilateral adrenals. PLAN OF RADIOTHERAPY: Dr. Blackwell I will be recommending that the patient undergo the appropriate staging workup. I will order a PET scan to be completed after the patient is discharged from this office. At this point there is no immediate role for radiation as the patient does not have evidence of a true superior vena cava syndrome and he appears relatively stable. If things change with regards to his physical status, however, he will need local regional radiotherapy at that time depending upon his presentation. At this point, however, I think chemotherapy is his best option and I would like to order the PET scan to help define the extent of his disease and to aid in staging. We will follow the patient carefully with Dr. Blackwell and should the need arise for radiation therapy intervene at that time. Thank you for allowing us the opportunity of participation and the management of this very fine gentleman.
[2019-06-11] MEDS ORDERED: PERCOCET PO (12:01)
[2019-06-11] MEDS ORDERED: ONDA8TAB7 PO (12:01)
[2019-06-11] MEDS ORDERED: PROC10TA4 PO (12:01)
[2019-06-11] MEDS ORDERED: ALLO100T PO (13:29)
== END 2019-06-10 17:50 | disposition home or self-care (01) | DRG 181 ==
LOC: M ED 11:43 → M ED INP 17:51 → M PCU 19:47
PROVIDERS: ADMIT Student in an Organized Health Care Education/Training Program; ATTEND Student in an Organized Health Care Education/Training Program
PROC: 02HV33Z Insertion of Infusion Device into Superior Vena Cava, Percutaneous Approach (ICD-10-PCS; 2019-06-10)
PROC: 0JH60XZ Insertion of Tunneled Vascular Access Device into Chest Subcutaneous Tissue and Fascia, Open Approach (ICD-10-PCS; 2019-06-10)
PROC: 0B918ZX Drainage of Trachea, Via Natural or Artificial Opening Endoscopic, Diagnostic (ICD-10-PCS; principal; 2019-06-10 08:30)
DX: C34.01 Malignant neoplasm of right main bronchus (principal); C79.51 Secondary malignant neoplasm of bone; I25.10 Atherosclerotic heart disease of native coronary artery without angina pectoris; K57.30 Diverticulosis of large intestine without perforation or abscess without bleeding; I71.4 Abdominal aortic aneurysm, without rupture; Z79.82 Long term (current) use of aspirin; Z79.899 Other long term (current) drug therapy; F17.200 Nicotine dependence, unspecified, uncomplicated; I73.9 Peripheral vascular disease, unspecified; E78.5 Hyperlipidemia, unspecified; E83.52 Hypercalcemia

== ENCOUNTER → 2019-07-03 | Outpatient (CLI) | payer MEDICARE ==
[~2019-07-03] MED LIST changes: +MORP-69 PO; +MORP15TA2 PO; +PREG50CA2 PO
--- NOTE | 2019-07-03 15:22 | REP ---
Two-view chest: 07/03/2019. Indication: Lung mass. Comparison: 06/10/2019. Findings: Right-sided Port-A-Cath is now present with the distal tip in the right atrium. The size of the hilar and superior medial lobe lung mass has diminished. No new lung masses are detected. There is no evidence of pleural effusion or pneumothorax. Impression: Significantly diminished size of the right hilar/mediastinal and medial right upper lobe mass. No acute changes compared to the most recent study. Electronically Signed by Trav Camacho DO 07/03/2019 03:13 P
== END ==
LOC: M RAD 14:44 → M LAB 14:44
PROVIDERS: ATTEND Internal Medicine Hematology
DX: C34.01 Malignant neoplasm of right main bronchus (principal)

== ENCOUNTER → 2019-09-01 | Outpatient (CLI) | payer MEDICARE ==
[~2019-09-01] MED LIST changes: +GASTROGRAFIN SOLUTION 30ML (Q9963) As Ordered ONE; +HYDR4TAB PO; +ISOVUE-370 76% 100ML VIAL (Q9967) As Ordered ONE; +ONDA8TAB10 PO; -ONDA8TAB7 PO; +OXYC10TA3 PO
--- NOTE | 2019-09-01 15:21 | REP ---
WHOLE BODY RADIONUCLIDE BONE SCAN: HISTORY: Restaging lung carcinoma. Comparison CT abdomen and pelvis are from this date, September 01, 2019. Comparison whole body bone scan imaging is from May 30, 2019. TECHNIQUE: 22.0 mCi technetium 99m MDP is injected, and standard whole body imaging is acquired. SCINTIGRAPHIC FINDINGS: There is a new focus of increased uptake in the lateral aspect of the right 8th rib. However, today's chest CT study demonstrates a healing ununited fracture without bony destructive change. No other new focus of increased uptake is seen. The previously noted foci of uptake along the scapular spine on the left, in the right iliac bone, and the subtrochanteric right femur, and in the two sites in the lower thoracic spine (T12 and T9) all look slightly more avid, although otherwise appear unchanged. There is a linear pattern of increased uptake in the inferior pubic ramus on the left, unchanged. IMPRESSION: Multifocal areas of increased uptake, consistent with metastatic disease essentially stable from the prior study. There is a new rib lesion, which noted foci appear more avid, however, this could be due to changes in patient hydration state. Electronically Signed by Bladimir Woodruff MD 09/01/2019 06:57 P
--- NOTE | 2019-09-02 07:35 | REP ---
CT CHEST WITH IV CONTRAST: HISTORY: Restaging lung cancer. Comparison chest CT study June 09, 2019. CT CONTRAST DOSE: 100 mL of intravenous Isovue 370. CT FINDINGS: There is a 17 mm spiculated nodule in the right lung apex with some overlying fibrosis extending to the apical pleura. Previous scan showed a interstitial infiltrate in this location. The cavitary nodule is morphologically new. Below this, there is a right upper lobe nodular opacity with two small adjacent nodules. These are dramatically improved from their appearance on the June 09, 2019. The two adjacent nodules today measure 10 and 9 mm respectively in greatest diameter. Previously, these dimensions were 27 and 16 mm x my measurement. The previously noted bulky right hilar and mediastinal lymphadenopathy has resolved. There are calcific lymph node residuals in the right hilum and subcarinal lymph node. No definite adenopathy is seen. A stable 1 cm noncalcified lymph node is seen in the inferior hilus on the right unchanged. Vascular calcification or stent material is visible along the course of the left coronary artery. No new hilar or mediastinal mass or adenopathy is observed. There is dramatic improvement in the left paravertebral soft tissue density associated with the bony destructive lesion in the lower thoracic spine. There is anterior wedging at this thoracic vertebral body which appears to be T9. There is an air density within the partially collapsed T9 vertebral body consistent with osteonecrosis. A vacuum phenomenon is also seen in the T8-9 disc. There is mild bulging or retropulsion of the posterior cortex of the T9 vertebral body but there is no longer evidence of epidural soft tissue disease. At T12, the previously noted left paravertebral soft-tissue disease is resolved. There is sclerosis and anterior wedging of the T12 vertebral body. No epidural disease is seen here. There is a healing fracture of the right 9th posterolateral rib. There is subtle sclerosis of the scapular spine on the left consistent with a sclerotic metastasis in this location. This corresponds to the bone scan findings. No lytic destructive lesion is appreciated. IMPRESSION: Rather dramatic improvement in the pulmonary parenchymal, mediastinal, right hilar, and vertebral disease. Electronically Signed by Bladimir Woodruff MD 09/02/2019 07:54 A
--- NOTE | 2019-09-02 08:13 | REP ---
CT abdomen and pelvis with IV and oral contrast: History: Restaging lung cancer. Comparison CT study June 09, 2019. CT contrast dose: 100 ml of intravenous Isovue [address] findings: Previous study showed a bony destructive metastasis at the T12 and T9 with paravertebral soft tissue components. There is considerable improvement. The previously noted soft tissue components are no longer visible. There is some sclerosis where there was previously a radiolucency. There is ill-defined sclerosis at the site of the right common iliac bone metastasis. This is fairly large however the sclerosis represents improvement and there is no longer evidence of cortical disruption here. No new skeletal metastasis is appreciated. There is mild anterior wedging at T12 and T9. Previously noted right adrenal nodule has decreased in short-axis dimension from 22 mm to 12 mm. No new adrenal lesion. There is an infrarenal abdominal aortic aneurysm again noted 3.5 cm in greatest diameter. There appear to be bilateral common iliac artery stents and the left external iliac artery stent is noted. There is a fem-fem crossover graft in place in the suprapubic soft tissues which appears to be patent. There is left colonic diverticulosis without CT evidence of diverticulitis. There is a right renal cyst measuring 4.5 cm in greatest diameter. There are scattered pancreatic calcifications again noted. Tiny gallstone is suspected near the neck of the gallbladder unchanged. There are multiple low-density subcentimeter liver lesions suggestive of cysts. These are unchanged. There are granulomatous calcifications in the spleen unchanged. Small and large bowel loops are unremarkable. Prostate calcifications are noted. Urinary bladder is intact. Impression: Improvement is noted at the T12 and T9 and right iliac bone sites of hematogenous metastasis. No new metastatic focus is seen. The right adrenal nodule is decreased in size as well. No new mass or adenopathy. Cholelithiasis. Left colonic diverticulosis. Electronically Signed by Bladimir Woodruff MD 09/02/2019 08:52 A
== END ==
LOC: M RAD 09:46
PROVIDERS: ATTEND Internal Medicine Hematology
DX: C34.01 Malignant neoplasm of right main bronchus (principal)
CPT/HCPCS: 71260; 74177; 78306; Q9963; Q9967

== ENCOUNTER 2019-12-17 09:48 | Inpatient (IN) | payer MEDICARE ==
[~2019-12-17] VITALS: Ht 172.7 cm; Wt 87.0 kg
[~2019-12-17 09:48] MED LIST changes: +DRON5CAP13 PO; +EMER1PAK PO; -GASTROGRAFIN SOLUTION 30ML (Q9963) As Ordered ONE; -ISOVUE-370 76% 100ML VIAL (Q9967) As Ordered ONE
[2019-12-17] MEDS ORDERED: SENN-80 PO (10:02)
[2019-12-17 10:46] LABS: BASO % 0.2 % (0.0-1.0); EOS # 0.1 10^3/uL (0.0-0.5); EOS % 1.2 % (0.0-3.0); HEMATOCRIT 49.6 % (42.0-52.0); HEMOGLOBIN 16.6 g/dl (13.5-17.5); LYMPH # 2.6 10^3/uL (1.5-5.0); LYMPH % 25.5 % (24.0-44.0); MEAN CORPUSCULAR HEMOGLOBIN 31.9 pg (27.0-33.0); MEAN CORPUSCULAR HGB CONC 33.5 g/dl (32.0-36.5); MEAN CORPUSCULAR VOLUME 95.4 fl (80.0-96.0); MONO # 0.6 10^3/uL (0.0-0.8); NEUTROPHILS # 6.8 10^3/uL (1.5-8.5); NEUTROPHILS % 66.8 % (36.0-66.0); PLATELET COUNT, AUTOMATED 144 10^3/uL (150-450); WHITE BLOOD COUNT 10.2 10^3/uL (4.0-10.0)
[2019-12-17 10:52] LABS: INR 1.03; PROTHROMBIN TIME 13.2 SECONDS (11.8-14.0)
[2019-12-17 10:53] LABS: PARTIAL THROMBOPLASTIN TIME 28.5 SECONDS (25.0-38.4)
[2019-12-17 11:04] LABS: BLOOD UREA NITROGEN 13 MG/DL (7-18); CARBON DIOXIDE LEVEL 25 MEQ/L (21-32); CHLORIDE LEVEL 108 MEQ/L (98-107); CK-MB VALUE MASS 1.6 NG/ML (<3.6); CPK CREATINE PHOSPHOKINASE 57 U/L (39-308); CREATININE FOR GFR 0.86 MG/DL (0.70-1.30); GLOMERULAR FILTRATION RATE > 60.0 (>42); GLUCOSE, FASTING 110 MG/DL (70-100); MB/CK RELATIVE INDEX 2.81 (< OR =4); POTASSIUM SERUM 3.6 MEQ/L (3.5-5.1); SODIUM LEVEL 139 MEQ/L (136-145); TROPONIN I < 0.02 NG/ML (< 0.10)
--- NOTE | 2019-12-17 11:12 | REP ---
REASON: Stroke-like symptoms. COMPARISON: None. There is decreased density seen in the deep cerebral white matter of the right frontoparietal watershed region measuring 2-3 cm. The deep cerebral white matter is otherwise unremarkable. There is no evidence of an acute intracranial hemorrhage. There are no extra-axial fluid collections. There is no shift in the midline structures. The ventricles and sulci are within normal limits. The posterior fossa is unremarkable. There is no skull fracture. IMPRESSION: Findings are consistent with an acute nonhemorrhagic CVA in the right frontoparietal watershed distribution deep white matter as described above. Electronically Signed by Iggy Hernandez DO 12/17/2019 11:43 A
[2019-12-17] MEDS ORDERED: ZZZQ25CA PO (12:52)
[2019-12-17] MEDS ORDERED: HYDR4TAB PO (12:52)
[2019-12-17] MEDS ORDERED: ALLO100T PO (12:52)
[2019-12-17] MEDS ORDERED: MOM 30ML SUSPENSION UDC PO PRN (13:15)
[2019-12-17] MEDS ORDERED: MAALOX 30 ML SUSP *UDC PO PRN (13:15)
[2019-12-17] MEDS ORDERED: ASPIRIN 81 MG CHEW TABLET PO ONE (13:30)
--- NOTE | 2019-12-17 13:38 | HPEPDOC ---
General Date of Admission Date of Service: Dec 17, 2019 Primary Care Physician: JOANN DE LA GARZA OMS-IV Chief Complaint The patient is a 69-year-old male admitted with a reason for visit of Altered Mental Status. History of Present Illness This is a 69 years old white male with past medical history of PAD, status post femorofemoral bypass, CAD status post PCI present that if in ED as he went to see his primary care physician today who referred him for admission. According the patient yesterday at 1:30 PM he developed heaviness of his tongue and slurred speech for about 15-20 minutes, which resolved by itself. No other associated symptoms. He does have a chronic left upper extremity weakness from his lung cancer complication. Patient denies any dizziness, headache, shortness of breath, weakness. Sensory or motor at the present time Home Medications Scheduled Allopurinol (Allopurinol) 100 Mg Tablet, 100 MG PO DAILY, (Reported) Ascorbic Acid/Multivit-Min (Emergen-C 1,000 mg Packet) 1,000 Mg Effpowdpkt, 1 LEOLA PO DAILY, (Reported) Aspirin (Aspirin EC) 81 Mg Tablet.dr, 81 MG PO DAILY, (Reported) Citalopram Hydrobromide (Citalopram HBr) 40 Mg Tablet, 40 MG PO DAILY, (Reported) Diphenhydramine HCl (Zzzquil) 25 Mg Capsule, 25 MG PO QHS, (Reported) Pravastatin Sodium (Pravastatin Sodium) 40 Mg Tablet, 40 MG PO QPM, (Reported) WITH EVENING MEAL Sennosides (Senna) 8.6 Mg Tablet, 2 TAB PO BID, (Reported) Tamsulosin Hcl (Tamsulosin HCl) 0.4 Mg Capsule, 0.4 MG PO DAILY, (Reported) Topiramate (Topiramate) 50 Mg Tablet, 50 MG PO QHS, (Reported) Scheduled PRN Acetaminophen (Acetaminophen) 500 Mg Tablet, 1,000 MG PO Q8H PRN for PAIN, (Reported) Hydromorphone HCl (Hydromorphone HCl) 4 Mg Tablet, 8 MG PO Q6H PRN for PAIN, (Reported) Allergies Coded Allergies: No Known Allergies (Unverified , 06/09/19) Past Medical History Medical History CAD, PAD, hyperlipidemia, lung cancer, SVC compression syndrome Surgical History Femorofemoral bypass, PCI Social History * Smoker: current smoker Alcohol: Denies Drugs: denies A-FIB/CHADSVASC A-FIB History Current/History of A-Fib/PAF?: No Review of Systems Constitutional: Denies: Chills, Fever, Malaise, Night Sweats, Weakness, Fatigue, Weight Loss, Lethargy, Other Eyes: Denies: Pain, Vision change, Conjunctivae inflammation, Eyelid inflammation, Redness, Other ENT: Denies: Head Aches, Ear Pain, Dysphagia, Sinus Congestion, Post Nasal Drip, Sore Throat, Epistaxis, Other Symptoms Skin: Denies: Rash, Lesions, Jaundice, Bruising, Itching, Dry, Breakdown, Nail Changes, Other Pulmonary: Denies: Dyspnea, Cough, Pleuritic Chest Pain, Other Symptoms Cardiovascular: Denies: Chest Pain, Palpitations, Orthopnea, Paroxysmal Noc. Dyspnea, Edema, Lt Headedness, Other Symptoms Gastrointestinal: Denies: Nausea, Vomiting, Abdominal Pain, Diarrhea, Constipation, Melena, Hematochezia, Other Symptoms Genitourinary: Denies: Dysuria, Frequency, Incontinence, Retention Hematologic: Denies: Bruising, Bleeding Excessively, Petecchia, Purpura, Enlarged Lymph Nodes, Other Hematologic Endocrine: Denies: Polydipsia, Polyphagia, Polyuria, Heat Intolerance, Cold Intolerance, Other Endocrine Sx Musculoskeletal: Denies: Neck Pain, Back Pain, Shoulder Pain, Arm Pain, Hand Pain, Leg Pain, Foot Pain, Joint Pain, Muscle Pain, Spasms, Other Symptoms Neurological: Reports: Other Symptoms (hemitongue and slurring his speech) Psych: Denies: Mood Normal, Anxiety, Depression, Memory Issues, Thoughts of Self Harm, Anger, Thoughts of Harming Other, Other Psych Physical Examination General Exam: Positive: Alert, Cooperative Eye Exam: Positive: PERRLA, Conjunctiva & lids normal ENT Exam: Positive: Atraumatic, Mucous membr. moist/pink Neck Exam: Positive: Supple Chest Exam: Positive: Clear to auscultation Heart Exam: Positive: Rate Normal, Normal S1 Abdomen Exam: Positive: Normal bowel sounds, Soft Extremity Exam: Positive: Normal pulses Skin Exam: Positive: Nl turgor and temperature Neuro Exam: Positive: Sensation Intact, Cranial Nerves 3-12 NL, Other (, 3/5 strength at the left upper extremity 5 over 5. The rest of the extremities) Psych Exam: Positive: Mental status NL, Oriented x 3 Vital Signs Vital Signs Date Time Temp Pulse Resp B/P (MAP) Pulse Ox O2 Delivery O2 Flow Rate FiO2 12/17/19 13:18 70 91 12/17/19 13:15 99/50 (66) 12/17/19 09:50 99.2 21 Room Air Laboratory Data Labs 24H Laboratory Tests 2 12/17/19 10:28: Immature Granulocyte % (Auto) 0.3, Neutrophils (%) (Auto) 66.8H, Lymphocytes (%) (Auto) 25.5, Monocytes (%) (Auto) 6.0H, Eosinophils (%) (Auto) 1.2, Basophils (%) (Auto) 0.2, Neutrophils # (Auto) 6.8, Lymphocytes # (Auto) 2.6, Monocytes # (Auto) 0.6, Eosinophils # (Auto) 0.1, Basophils # (Auto) 0.0, Nucleated Red B lood Cells % (auto) 0.0, Prothrombin Time 13.2, Prothromb Time International Ratio 1.03, Activated Partial Thromboplast Time 28.5, Anion Gap 6L, Glomerular Filtration Rate > 60.0, Calcium Level 9.0, Total Creatine Kinase 57, Creatine Kinase MB 1.6, Creatine Kinase MB Relative Index 2.81, Troponin I < 0.02 CBC/BMP Laboratory Tests 12/17/19 10:28 Problems (1) CVA (cerebral vascular accident) Status: Acute Problem Text: Admit patient to PCU with telemetry monitoring Neuro check every 4 hours , Aspirin 325 mg by mouth 1 dose now , Aspirin 325 mg by mouth daily , Pravastatin 40 mg by mouth daily Continue all home meds Echocardiogram Bilateral carotid Dopplers MRI brain without contrast DVT prophylaxis with heparin Activity as tolerated Diet nothing by mouth except meds Physical therapy evaluation Occupational therapy evaluation Speech and swallow evaluation Neurology consult (2) Small cell lung cancer Status: Chronic Problem Text: History of lung cancer with bone metastases Supportive care (3) PAD (peripheral artery disease) Status: Chronic Problem Text: Continue home meds (4) CAD (coronary artery disease) Status: Chronic Problem Text: Continue home meds Plan / VTE VTE Prophylaxis Ordered?: Yes TRAMAINE OLIVER MD Dec 17, 2019 13:38
[2019-12-17 14:15] VITALS: BP 137/73
[2019-12-17 16:00] VITALS: BP 123/68
[2019-12-17] MEDS: D5W/0.45% SODIUM CHLORIDE 1,000 ML IV SCH (16:08)
[2019-12-17 20:00] VITALS: BP 113/76
[2019-12-17] MEDS: HEPARIN SOD (PORCINE) 5000UNITS/ML VIAL (J1644 PER 1000UNITS) SC SCH (20:44)
[2019-12-17] MEDS: DOCUSATE SODIUM 100 MG CAP PO SCH (20:45)
[2019-12-17] MEDS: SENNA 8.6 MG TAB (SENOKOT) PO SCH (20:45)
[2019-12-17] MEDS: ACETAMINOPHEN TAB 650MG DOSE (2X325MG) PO PRN (20:50)
[2019-12-17] MEDS ORDERED: PRAVASTATIN 20 MG TAB PO SCH (21:00)
[2019-12-17] MEDS ORDERED: TOPIRAMATE (TopAMAX) 25 MG TAB PO SCH (21:00)
[2019-12-17] MEDS ORDERED: diphenhydrAMINE 50MG/ML VIAL (J1200) IV ONE (21:30)
[2019-12-17] MEDS: HYDROmorphone (DILAUDID) 4 MG TAB PO PRN (23:46)
[2019-12-18] VITALS: BP 119/72
--- NOTE | 2019-12-18 03:18 | ECHO ---
DATE OF PROCEDURE: 12/17/2019 REFERRING PHYSICIAN: Dr. Emigdio Rodriguez INDICATION: Acute stroke. HEIGHT: 173 cm WEIGHT: 88 kg 2D MEASUREMENTS: Left atrium: 3.2 cm Aortic root: 3.4 cm Ventricular septum: 1.11 cm Posterior wall: 1.07 cm Left ventricle diastole: 4.3 cm Aortic annulus: 2.4 cm DOPPLER MEASUREMENTS: No aortic regurgitation. No aortic stenosis. Aortic valve velocity: 116 cm/s LVOT velocity: 94.6 cm/s No mitral stenosis. No mitral regurgitation. Mitral E velocity: 62.6 cm/s Mitral A velocity: 66.4 cm/s Mitral deceleration time: 219 ms No tricuspid regurgitation. No pulmonic regurgitation. MITRAL ANNULAR TISSUE DOPPLER: E prime septal: 8.05 cm/s E prime lateral: 10.6 cm/s DESCRIPTION: Rhythm was sinus. This was a technically difficult echocardiogram. No subcostal views were obtainable. CONCLUSIONS: 1. Normal left ventricle internal dimensions. Probably normal regional left ventricle (LV) wall motion, but difficult to assess endocardium due to technically difficult echocardiogram. LV ejection fraction estimated to be 60% by visual estimate. Normal LV diastolic function for age. 2. Septal bounce. Possible pericardial thickening. Recommend further evaluation with CT of the chest to assess the pericardium. 3. Mild aortic valve sclerosis. No aortic regurgitation. 4. Technically difficult echocardiogram. 5. Otherwise, normal appearing echocardiogram Doppler findings.
[2019-12-18 04:00] VITALS: BP 131/75
[2019-12-18] MEDS: ACETAMINOPHEN TAB 650MG DOSE (2X325MG) PO PRN (05:38)
[2019-12-18] MEDS: D5W/0.45% SODIUM CHLORIDE 1,000 ML IV SCH (05:38)
[2019-12-18 05:56] LABS: HEMATOCRIT 45.9 % (42.0-52.0); HEMOGLOBIN 15.4 g/dl (13.5-17.5); MEAN CORPUSCULAR HEMOGLOBIN 32.1 pg (27.0-33.0); MEAN CORPUSCULAR HGB CONC 33.6 g/dl (32.0-36.5); MEAN CORPUSCULAR VOLUME 95.6 fl (80.0-96.0); PLATELET COUNT, AUTOMATED 143 10^3/uL (150-450); WHITE BLOOD COUNT 7.1 10^3/uL (4.0-10.0)
[2019-12-18 06:21] LABS: BLOOD UREA NITROGEN 14 MG/DL (7-18); CALCIUM LEVEL 8.8 MG/DL (8.8-10.2); CARBON DIOXIDE LEVEL 24 MEQ/L (21-32); CHLORIDE LEVEL 111 MEQ/L (98-107); CREATININE FOR GFR 0.96 MG/DL (0.70-1.30); GLOMERULAR FILTRATION RATE > 60.0 (>42); GLUCOSE, FASTING 139 MG/DL (70-100); POTASSIUM SERUM 3.8 MEQ/L (3.5-5.1); SODIUM LEVEL 141 MEQ/L (136-145)
[2019-12-18 08:00] VITALS: BP 131/65
[2019-12-18] MEDS: DOCUSATE SODIUM 100 MG CAP PO SCH (08:37)
[2019-12-18] MEDS: SENNA 8.6 MG TAB (SENOKOT) PO SCH (08:37)
[2019-12-18] MEDS: HEPARIN SOD (PORCINE) 5000UNITS/ML VIAL (J1644 PER 1000UNITS) SC SCH (08:43)
[2019-12-18] MEDS: HYDROmorphone (DILAUDID) 4 MG TAB PO PRN (08:43)
[2019-12-18] MEDS ORDERED: allopurinoL 100 MG TAB PO SCH (09:00)
[2019-12-18] MEDS ORDERED: CitaloPRAM (CeleXA) 20 MG TAB PO SCH (09:00)
[2019-12-18] MEDS ORDERED: TAMSULOSIN 0.4 MG CAP PO SCH (09:00)
[2019-12-18] MEDS ORDERED: ASPIRIN ENTERIC 325 MG TAB PO SCH (09:00)
[2019-12-18] MEDS ORDERED: ISOVUE-370 76% 100ML VIAL As Ordered ONE (10:07)
--- NOTE | 2019-12-18 10:31 | IPNPDOC ---
Subjective Date Seen The patient was seen on 12/18/19. Subjective Chief Complaint/HPI Patient comfortable cleared the physical therapy was to go home, unable to obtained MRI secondary to iliac stents General: Denies: ROS Unobtainable, Chills, Night Sweats, Fatigue, Malaise, Normal Appetite, Other Symptoms Constitutional: Denies: Chills, Fever, Malaise, Night Sweats, Weakness, Fatigue, Weight Loss, Lethargy, Other Pulmonary: Denies: Dyspnea, Cough, Pleuritic Chest Pain, Other Symptoms Cardiovascular: Denies: Chest Pain, Palpitations, Orthopnea, Paroxysmal Noc. Dyspnea, Edema, Lt Headedness, Other Symptoms Gastrointestinal: Denies: Nausea, Vomiting, Abdominal Pain, Diarrhea, Constipation, Melena, Hematochezia, Other Symptoms Musculoskeletal: Denies: Neck Pain, Back Pain, Shoulder Pain, Arm Pain, Hand Pain, Leg Pain, Foot Pain, Joint Pain, Muscle Pain, Spasms, Other Symptoms Neurological: Denies: Weakness, Numbness, Incoordination, Change in speech, Confusion, Seizures, Other Symptoms Objective Physical Examination General Exam: Positive: Alert, Cooperative Eye Exam: Positive: PERRLA, Conjunctiva & lids normal ENT Exam: Positive: Atraumatic, Mucous membr. moist/pink Neck Exam: Positive: Supple Chest Exam: Positive: Clear to auscultation Heart Exam: Positive: Rate Normal, Normal S1 Abdomen Exam: Positive: Normal bowel sounds, Soft Extremity Exam: Positive: Normal pulses Skin Exam: Positive: Nl turgor and temperature Neuro Exam: Positive: Sensation Intact, Cranial Nerves 3-12 NL, Other (, 3/5 strength at the left upper extremity 5 over 5. The rest of the extremities) Psych Exam: Positive: Mental status NL, Oriented x 3 Assessment /Plan Problems (1) CVA (cerebral vascular accident) Status: Acute Problem Text: Patient echocardiogram is essentially within normal limit and telemetry did not show any abnormal rhythm or arrhythmia Unable to obtain MRI of the neck and head secondary to iliac stents Discussed with Dr. Link over the phone. We will get CTA of head and neck and if essentially negative. Patient can be discharged home on by mouth aspirin and statins Dr. Link will follow patient as an outpatient for any further workup if needed (2) Lung cancer metastatic to bone Status: Chronic Problem Text: Follow with PCP and oncology as an outpatient (3) CAD (coronary artery disease) Status: Chronic Problem Text: Continue home meds (4) PAD (peripheral artery disease) Status: Chronic Problem Text: Continue home meds Plan/VTE VTE Prophylaxis Ordered?: Yes VS, I&O, 24H, Fishbone Vital Signs/I&O Vital Signs Date Time Temp Pulse Resp B/P (MAP) Pulse Ox O2 Delivery O2 Flow Rate FiO2 12/18/19 09:13 16 Room Air 12/18/19 08:00 97.1 60 131/65 (87) 93 I&O- Last 24 Hours up to 6 AM 12/18/19 06:00 Intake Total 1450 ml Output Total 700 ml Balance 750 ml Laboratory Data 24H LABS Laboratory Tests 2 12/18/19 05:30: Nucleated Red Blood Cells % (auto) 0.0, Anion Gap 6L, Glomerular Filtration Rate > 60.0, Calcium Level 8.8 CBC/BMP Laboratory Tests 12/18/19 05:30 TRAMAINE OLIVER MD Dec 18, 2019 10:31
--- NOTE | 2019-12-18 11:48 | REP ---
CT ANGIOGRAPHY OF THE BRAIN WITH IV CONTRAST: HISTORY: CVA. Comparison is made with head CT study from December 17, [address] CONTRAST DOSE: 100 mL of intravenous Isovue 370 is administered. Helical scanning is acquired and 2 mm axial images are reformatted. Coronal and sagittal MPR and MIP images are generated and reviewed. 3D surface rendered the imaging is also generated and reviewed. CT ANGIOGRAPHIC FINDINGS: The right distal vertebral artery is tiny and does not appear to contribute to the basilar. The left distal vertebral is dominant and widely patent. There is vascular calcification in the distal internal carotid arteries bilaterally mild in degree. There is mild atherosclerotic irregularity of the P1 segment of the posterior cerebral artery on the left. The anterior and middle cerebral arteries are unremarkable. No asymmetry or abnormality is seen in cortical draining veins. The sagittal, straight, and sigmoid sinuses are patent and symmetric. No abnormal contrast enhancement is appreciated. There is no evidence of silvestre aneurysm or arteriovenous malformation. IMPRESSION: There is mild atherosclerotic irregularity of the P1 segment of the posterior cerebral artery on the left. The right vertebral artery is tiny and does not appear to contribute to the basilar artery. There is some calcification in the distal internal carotid arteries bilaterally. Otherwise unremarkable CT angiography of the brain. Electronically Signed by Bladimir Woodruff MD 12/18/2019 12:38 P
--- NOTE | 2019-12-18 11:50 | REP ---
CT ANGIOGRAPHY OF THE CAROTID ARTERIES WITH IV CONTRAST: HISTORY: CVA. CT CONTRAST DOSE: 100 mL of intravenous Isovue 370. TECHNIQUE: Helical scanning is acquired. 2 mm axial images are reformatted. Coronal and sagittal MPR and MIP images are generated in addition to 3D surface rendered color imaging. CT ANGIOGRAPHIC FINDINGS: There is a right-sided [id number] catheter. There is some vascular calcification in the aortic arch. Great vessel origins are unremarkable. Vertebral arteries are patent bilaterally but left is larger than right. There is some vascular calcification in the distal internal carotid arteries bilaterally. There is minimal vascular calcification in the carotid bifurcation and bulb on the left. No evidence of internal carotid artery stenosis or significant plaquing is seen. Common carotid arteries are intact and unremarkable bilaterally. Incidental note is made of a developmental cleft in the midline anterior arch of C1 as a normal variant. There are mild degenerative spondylosis changes. There is a cavitary spiculated lesion in the right upper lobe of the lung measuring 1.1 cm in diameter. This is new when compared with prior chest CT study of June 09, 2019. That prior chest CT study showed mediastinal adenopathy and a lower suprahilar lung mass which appear to have resolved. No observable supraclavicular or neck adenopathy. IMPRESSION: There is some vascular calcification in the internal carotid arteries bilaterally. No high-grade stenosis or occlusion is seen. Asymmetry in the vertebral arteries, left dominant. Spiculated cavitary lesion in the apex of the right lung 1.1 cm in diameter. Electronically Signed by Bladimir Woodruff MD 12/18/2019 12:39 P
[2019-12-18 12:00] VITALS: BP 134/65
[2019-12-18] MEDS ORDERED: ASPI32ECTA PO (12:44)
[2019-12-18] MEDS ORDERED: DOCU100C16 PO (12:44)
--- NOTE | 2019-12-18 13:14 | DS.PDOC ---
Discharge Summary General Date of Admission Dec 17, 2019 at 13:14 Date of Discharge 12/18/19 Discharge Summary PROCEDURES PERFORMED DURING STAY: None. ADMITTING DIAGNOSES: 1. CVA. DISCHARGE DIAGNOSES: 1. CVA, lung cancer with metastases to bone, CAD, PAD COMPLICATIONS/CHIEF COMPLAINT: Cva,Lung Cancer Metastatic to bones, PAD, CAD. HISTORY OF PRESENT ILLNESS: This is a 69 years old white male with past medical history of PAD, status post femorofemoral bypass, CAD status post PCI present that if in ED as he went to see his primary care physician today who referred him for admission. According the patient yesterday at 1:30 PM he developed heaviness of his tongue and slurred speech for about 15-20 minutes, which resolved by itself. No other associated symptoms. He does have a chronic left upper extremity weakness from his lung cancer complication. Patient denies any dizziness, headache, shortness of breath, weakness. Sensory or motor at the present time. HOSPITAL COURSE: 69years old white male was admitted with the diagnosis of acute CVA, as evident on CT of the head. Patient echocardiogram is essentially within normal limit and telemetry did not show any abnormal rhythm or arrhythmia Unable to obtain MRI of the neck and head secondary to iliac stents Case was discussed with Dr. Link he advised to get the CTA of the brain and neck done. If is negative. Patient can be discharged home on by mouth aspirin and statin and follow with his office in one week As MRI could not be done secondary to celiac stents and CTA of brain and neck was done and is essentially normal. Patient can be discharged home on by mouth aspirin and statin and follow with Dr. Link in his office in one week Patient also was seen by physical therapy and has cleared the patient for discharge home. DISCHARGE MEDICATIONS: Please see below. ALLERGIES: Please see below. PHYSICAL EXAMINATION ON DISCHARGE: VITAL SIGNS: Please see below. GENERAL: Within normal limits HEENT: PERRLA. Extraocular muscles intact NECK: [Supple. Negative JVD, negative lymphadenopathy CARDIOVASCULAR EXAMINATION: [S1, S2, regular RESPIRATORY EXAMINATION: Clear to A&P ABDOMINAL EXAMINATION: , Soft, nontender, bowel sounds present EXTREMITIES: No clubbing, cyanosis, edema SKIN: Normal NEUROLOGICAL EXAMINATION: . No focal motor sensory deficit PSYCHIATRIC EXAMINATION: Normal LABORATORY DATA: Please see below. IMAGING: CT angiogram: There is mild atherosclerotic irregularity of the P1 segment of the posterior cerebral artery on the left. The right vertebral artery is tiny and does not appear to contribute to the basilar artery. There is some calcification in the distal internal carotid arteries bilaterally. Otherwise unremarkable CT angiography of the brain. CT angios neck:There is some vascular calcification in the internal carotid arteries bilaterally. No high-grade stenosis or occlusion is seen. Asymmetry in the vertebral arteries, left dominant. Spiculated cavitary lesion in the apex of the right lung 1.1 cm in diameter. Echocardiogram:CONCLUSIONS: 1. Normal left ventricle internal dimensions. Probably normal regional left ventricle (LV) wall motion, but difficult to assess endocardium due to technically difficult echocardiogram. LV ejection fraction estimated to be 60% by visual estimate. Normal LV diastolic function for age. 2. Septal bounce. Possible pericardial thickening. Recommend further evaluation with CT of the chest to assess the pericardium. 3. Mild aortic valve sclerosis. No aortic regurgitation. 4. Technically difficult echocardiogram. 5. Otherwise, normal appearing echocardiogram Doppler findings. PROGNOSIS: Good ACTIVITY: As tolerated. DIET: As tolerated DISCHARGE PLAN: Follow with Dr. Link is an outpatient DISPOSITION: . Go home DISCHARGE INSTRUCTIONS: 1. As per discharge instructions. ITEMS TO FOLLOWUP ON ON OUTPATIENT: 1. Follow with Dr. Link is an outpatient in one week. DISCHARGE CONDITION: Stable. TIME SPENT ON DISCHARGE: 35 minutes. Vital Signs/I&Os Vital Signs Date Time Temp Pulse Resp B/P (MAP) Pulse Ox O2 Delivery O2 Flow Rate FiO2 12/18/19 12:00 97.7 57 20 134/65 (88) 92 Room Air I&O- Last 24 Hours up to 6 AM 12/18/19 06:00 Intake Total 1450 ml Output Total 700 ml Balance 750 ml Laboratory Data Labs 24H Laboratory Tests 2 12/18/19 05:30: Nucleated Red Blood Cells % (auto) 0.0, Anion Gap 6L, Glomerular Filtration Rate > 60.0, Calcium Level 8.8 CBC/BMP Laboratory Tests 12/18/19 05:30 Discharge Medications Scheduled Allopurinol (Allopurinol) 100 Mg Tablet, 100 MG PO DAILY, (Reported) Ascorbic Acid/Multivit-Min (Emergen-C 1,000 mg Packet) 1,000 Mg Effpowdpkt, 1 LEOLA PO DAILY, (Reported) Aspirin (Aspirin EC) 325 Mg Tablet., 325 MG PO DAILY Citalopram Hydrobromide (Citalopram HBr) 40 Mg Tablet, 40 MG PO DAILY, (Reported) Docusate Sodium (Docusate Sodium) 100 Mg Capsule, 100 MG PO BID Pravastatin Sodium (Pravastatin Sodium) 40 Mg Tablet, 40 MG PO QPM, (Reported) WITH EVENING MEAL Sennosides (Senna) 8.6 Mg Tablet, 2 TAB PO BID, (Reported) Tamsulosin Hcl (Tamsulosin HCl) 0.4 Mg Capsule, 0.4 MG PO DAILY, (Reported) Topiramate (Topiramate) 50 Mg Tablet, 50 MG PO QHS, (Reported) Scheduled PRN Acetaminophen (Acetaminophen) 500 Mg Tablet, 1,000 MG PO Q8H PRN for PAIN, (Reported) Hydromorphone HCl (Hydromorphone HCl) 4 Mg Tablet, 8 MG PO Q6H PRN for PAIN, (Reported) Allergies Coded Allergies: No Known Allergies (Unverified , 06/09/19) TRAMAINE OLIVER MD Dec 18, 2019 13:14
[2019-12-19] MEDS ORDERED: HYDR4TAB PO ×2 (16:01→16:51)
== END 2019-12-18 14:28 | disposition home or self-care (01) | DRG 65 ==
LOC: M ED 09:48 → M ED INP 13:14 → ENRESERV 13:27 → M PCU 14:48
PROVIDERS: ADMIT Internal Medicine; ATTEND Internal Medicine
DX: I63.9 Cerebral infarction, unspecified (principal); C34.90 Malignant neoplasm of unspecified part of unspecified bronchus or lung; C79.51 Secondary malignant neoplasm of bone; I25.10 Atherosclerotic heart disease of native coronary artery without angina pectoris; Z79.82 Long term (current) use of aspirin; Z79.899 Other long term (current) drug therapy; E78.5 Hyperlipidemia, unspecified; I73.9 Peripheral vascular disease, unspecified

== ENCOUNTER → 2020-01-15 | Outpatient (CLI) | payer MEDICARE ==
[~2020-01-15] MED LIST changes: +ASPI32ECTA PO; +DOCU100C16 PO; +ECOT81TA5 PO; +KEPP1TAB PO; +PHEN100C PO; +SENN-80 PO; +ZZZQ25CA PO
--- NOTE | 2020-01-15 11:33 | REP ---
CT CHEST WITHOUT IV CONTRAST: CT chest performed without IV contrast. Sagittal and coronal reconstruction images are performed. Comparison is made with a prior study of 09/01/2019. Previously noted cavitating spiculated nodule in the right upper lobe has mildly decreased in size, maximum diameter is 1.1 cm. A band of parenchymal density more inferiorly in the right upper lobe best seen on image 42 has also decreased since the prior study. It is much less nodular in appearance. Tiny 3 mm nodular density in the subpleural location of the right lower lobe on image 47 is unchanged. There are a few calcified granulomas in both lungs. There is diffuse interstitial fibrosis unchanged with mild bibasilar linear fibroatelectatic change in the right lower lobe and lingula. Right central venous catheter is seen with the tip in the right atrium. Multiple calcified lymph nodes are seen in the subcarinal region and right hilum. New right paratracheal devin mass is seen measuring 3.5 x 2.7 cm. Two subcentimeter lymph nodes in the left kaiden-carinal region have mildly increased since the prior study. There is no thoracic aortic aneurysm. The heart is normal in size. There is no pleural or pericardial effusion. The previously noted left paravertebral soft tissue density at the T9 level is again decreased. There is some subtle soft tissue density in the left paravertebral location at that level. The sclerotic appearance and moderate compression of T9 is unchanged since the prior exam. There is decreased air in the vertebral body itself when compared to the prior study. Sclerotic compression of T12 is unchanged. Ill-defined small hypodensities in the liver are stable. There are calcified granulomas in the spleen. There is a new left adrenal metastatic lesion 3.4 cm in diameter. Right adrenal nodule is unchanged since the prior study. IMPRESSION: Decreased size of cavitating spiculated nodule right upper lobe as well as a band of density more inferiorly in the right upper lobe. No new pulmonary nodules seen. However, there is a new devin mass in the right paratracheal region measuring 3.5 x 2.7 cm. Two left kaiden-carinal lymph nodes are subcentimeter in diameter but have mildly increased in size. Left paravertebral soft tissue density continues to decrease at the T9 level. There is no significant change in the sclerotic compression of T9 and T12 vertebral bodies. There is a new left adrenal metastatic nodule 3.4 cm in diameter. A right adrenal nodule is stable. Electronically Signed by José Manuel Orlando MD 01/15/2020 12:43 P
== END ==
LOC: M RAD 09:27
PROVIDERS: ATTEND Internal Medicine Hematology
DX: C34.91 Malignant neoplasm of unspecified part of right bronchus or lung (principal); C79.51 Secondary malignant neoplasm of bone

== ENCOUNTER → 2020-02-06 09:24 | Outpatient (RCR) | payer MEDICARE ==
[2019-06-11 10:14] VITALS: BP 132/79
--- NOTE | 2019-06-11 14:34 | ONC.PHACK ---
CHEMO ADMIN CHECKLIST Order Contains Pt ID: Name, Order on Chemo Order Form?: Yes Order Form Includes ALL: Correct Tx Day, Correct Date, Correct Cycle Number Pt ID on Order form Matches: Pt ID on PHA Label Med on Chemo OrderForm Matches: PHA Label, Med Used for Preparation [facility] Jun 11, 2019 14:34
--- NOTE | 2019-06-12 10:30 | MEDONC ---
DATE OF FOLLOWUP: DATE OF SERVICE: 06/11/2019 HISTORY OF PRESENT ILLNESS: Please refer to the inpatient consult dictated on 06/10/2019, however in summary this is a 69-year-old white male patient who has a past medical history of peripheral vascular disease, history of heavy smoking. He was admitted from the ER because of shortness of breath and severe back pain which was evaluated as outpatient and the bone scan was done and showed multiple lytic lesions in the skeletal area. CT of the chest was done in the ER and it showed presence of perihilar mass with a spot encroaching on the superior vena cava. Bronchoscopy was done with a biopsy which showed small cell lung cancer. Also radiology finding showed bilateral adrenal metastasis. In summary he has a diagnosis of extensive stage small cell lung cancer. PHYSICAL EXAMINATION: He showed normal vitals. Chest showed normal breath sounds. No wheezing, rhonchi, or crackles. Heart exam revealed normal S1, S2 with no murmur. Abdomen showed no tenderness or rigidity. No organomegaly. ASSESSMENT AND PLAN: Extensive stage small cell lung cancer. We are going to start his chemotherapy today with carboplatin and Etoposide 100 mg per meter square for 3 days and carboplatin day 1. We are going to repeat the cycle every 21 days and every 4 to 6 cycle of treatment. After four cycles we are going to repeat the CAT scan again for evaluation of the response of treatment. He was given prescriptions for allopurinol 300 mg a day also a prescription for Percocet and antiemetics. He is going to be seen tomorrow and after tomorrow for etoposide infusion. Also he would be seen in 3 weeks with a provider before the next cycle of chemotherapy dosage. Electronically Signed by Jeremiah Blackwell MD 06/12/2019 03:02 P DD: Jeremiah Blackwell MD 06/11/2019 03:03 P DT: estela 06/12/2019 10:09 A CC:
[2019-06-12 12:45] VITALS: BP 129/73
--- NOTE | 2019-06-12 12:45 | ONC.PHACK ---
CHEMO ADMIN CHECKLIST Order Contains Pt ID: Name, Order on Chemo Order Form?: Yes Order Form Includes ALL: Correct Tx Day, Correct Date, Correct Cycle Number Pt ID on Order form Matches: Pt ID on PHA Label Med on Chemo OrderForm Matches: PHA Label, Med Used for Preparation [facility] Jun 12, 2019 12:45
[2019-06-13 12:30] VITALS: BP 126/75
--- NOTE | 2019-06-13 15:09 | ONC.PHACK ---
CHEMO ADMIN CHECKLIST Order Contains Pt ID: Name, Order on Chemo Order Form?: Yes Order Form Includes ALL: Correct Tx Day, Correct Date, Correct Cycle Number Pt ID on Order form Matches: Pt ID on PHA Label Med on Chemo OrderForm Matches: PHA Label, Med Used for Preparation [facility] Jun 13, 2019 15:09
[2019-07-02 08:32] VITALS: BP 121/67
[2019-07-02 08:40] LABS: BASO # 0.1 10^3/uL (0.0-0.2); BASO % 1.2 % (0.0-1.0); EOS % 0.5 % (0.0-3.0); HEMOGLOBIN 14.6 g/dl (13.5-17.5); LYMPH # 2.7 10^3/uL (1.5-5.0); LYMPH % 35.5 % (24.0-44.0); MEAN CORPUSCULAR HEMOGLOBIN 31.3 pg (27.0-33.0); MEAN CORPUSCULAR HGB CONC 33.2 g/dl (32.0-36.5); MEAN CORPUSCULAR VOLUME 94.2 fl (80.0-96.0); MONO # 0.8 10^3/uL (0.0-0.8); MONO % 9.7 % (0.0-5.0); NEUTROPHILS # 3.7 10^3/uL (1.5-8.5); NEUTROPHILS % 48.3 % (36.0-66.0); PLATELET COUNT, AUTOMATED 215 10^3/uL (150-450); RED BLOOD COUNT 4.67 10^6/uL (4.30-6.10); WHITE BLOOD COUNT 7.7 10^3/uL (4.0-10.0)
[2019-07-02 09:05] LABS: ALBUMIN 3.1 GM/DL (3.2-5.2); ALT/SGPT 33 U/L (12-78); BILIRUBIN,TOTAL 0.2 MG/DL (0.2-1.0); BLOOD UREA NITROGEN 14 MG/DL (7-18); CALCIUM LEVEL 9.1 MG/DL (8.8-10.2); CARBON DIOXIDE LEVEL 25 MEQ/L (21-32); CHLORIDE LEVEL 110 MEQ/L (98-107); CREATININE FOR GFR 0.81 MG/DL (0.70-1.30); GLOMERULAR FILTRATION RATE > 60.0 (>42); GLUCOSE, FASTING 119 MG/DL (70-100); SODIUM LEVEL 139 MEQ/L (136-145); TOTAL PROTEIN 7.3 GM/DL (6.4-8.2)
--- NOTE | 2019-07-02 11:11 | ONC.PHACK ---
CHEMO ADMIN CHECKLIST Order Contains Pt ID: Name, Order on Chemo Order Form?: Yes Order Form Includes ALL: Correct Tx Day, Correct Date, Correct Cycle Number Pt ID on Order form Matches: Pt ID on PHA Label Med on Chemo OrderForm Matches: PHA Label, Med Used for Preparation [facility] Jul 02, 2019 11:11
--- NOTE | 2019-07-02 13:45 | MEDONC ---
MEDICAL ONCOLOGY CLINIC NOTE DATE OF ENCOUNTER: 07/02/2019 IDENTIFICATION AND CHIEF COMPLAINT: Kwaku Stoner is a 69-year-old gentleman with recently diagnosed small cell carcinoma of the lung, widely metastatic to the bony skeleton, who returns to the medical oncology practice for reevaluation following a first cycle of carboplatin and etoposide chemotherapy. He reports "the bone pain is a little bit better since the chemotherapy, but I ran out of the pain medicines and I need them or the pain is intolerable". HISTORY OF PRESENT ILLNESS: Kwaku Stoner is a 69-year-old gentleman with a long history of heavy tobacco use which continues, complicated by a long history of atherosclerotic vascular disease and more recently by the diagnosis of extensive stage small cell carcinoma of the lung. History of present illness dates to 2018 when he developed generalized, rapidly progressive bone pain, particularly in his left shoulder along with the right leg and low back pain. He underwent imaging studies which were initially nondiagnostic with deferring interpretations of the findings per his report. The patient underwent a radionuclide bone scan on May 30, 2019 with the impression of findings consistent with metastatic disease. These sites included a lesion in the right iliac bone adjacent to the sacroiliac joints, a focus in the right femur, uptake in T12 vertebral body, in L3, and T10 and T11 as well as a suspicious lesion in the left scapula and multiple ribs. Due to these findings the patient was directed to the emergency department at [facility] on June 09, 2019. CT scan of the chest that day documented a right hilar and mediastinal mass with extension into the adjacent right upper lobe of the lung. At its epicenter the mass was measured at 6.3 cm x 7.2 cm with adjacent enlarged lymph nodes superior to the mass measuring up to 3.6 cm. Note was also made of scattered atherosclerotic calcifications within the thoracic aorta and diffuse peribronchial thickening of the right upper lobe, compression of the superior vena cava with encasement of the right upper lobe pulmonary artery branch was noted along with pathologic fractures of T9 and T12 and metastatic lesions in the left scapula, as well as the right scapula. Fracture was noted in the lateral aspect of the right 8th rib. The patient was hospitalized, and narcotic analgesics initiated for control of pain. CT scan of the abdomen showed an infrarenal abdominal aortic aneurysm and bilateral adrenal masses. Diverticulosis was noted incidentally. The patient received systemic chemotherapy consisting of carboplatin and at AUC of 6 on day one and etoposide 100 mg/m2 given on days 1-3 with treatment beginning on June 11, 2019. The patient was given aggressive antiemetics and placed on allopurinol initially. He was subsequently discharged to home. He was given oxycodone with acetaminophen in tablet form for pain control and this medication did help with control of pain. June 27, 2019 he had used all this medication and was without opioid analgesics for several days per his report. The patient returns at this time for evaluation prior to cycle #2 of carboplatin and etoposide. He states that his bone pain is somewhat improved as compared to a month ago but he continues to have severe pain particularly in the left shoulder where he is unable to abduct the left arm due to pain. Pain is described as intense, rising to 10 out of 10 in the absence of analgesia. He also reports right thigh pain as well as low back pain. His reports that the patient is more ambulatory than previously. He also notes that when he takes acetaminophen he falls asleep. He has had no fevers, chills or sweats since chemotherapy and has a cough occasionally productive of clear sputum but no hemoptysis. His overall Karnofsky performance status is estimated at 60% at this time. ALLERGIES: None known. CURRENT MEDICATIONS: - allopurinol 100 mg by mouth daily - aspirin 81 mg by mouth every day - citalopram 40 mg by mouth daily - Zofran 8 mg by mouth every 8 hours as needed nausea - pravastatin 40 mg by mouth every evening - pregabalin 50 mg by mouth twice a day - Compazine 10 mg by mouth every 8 hours as needed nausea - tamsulosin 0.4 mg by mouth every day - topiramate 50 mg by mouth every day PAST MEDICAL HISTORY: The patient has past history significant for small cell carcinoma of the lung, extensive stage disease as detailed above. There is a history of atherosclerotic vascular disease with coronary artery disease status post coronary artery stenting and peripheral arterial vascular disease with four procedures in the past year per the patient's report. He underwent femoral femoral bypass surgery in the past, but continues to have claudication in the right leg with right leg fatigue upon walking across a room. There is a history of prostatic hypertrophy, and history of hyperlipidemia. There is history of cholelithiasis and history of abdominal aortic aneurysm recently identified. There is also a history of diverticulosis. The patient has had ocular cataracts status post bilateral surgical procedures. SOCIAL HISTORY: Tobacco: The patient smokes one pack per day at this time and has an approximately 100 pack-year history of tobacco use. He was counseled at this encounter to discontinue tobacco use, but he states he is unable to do so at this time. Alcohol: The patient is not actively using alcohol. Illicit drugs: The patient is not actively using illicit drugs. He is and resides with his current . REVIEW OF SYSTEMS: Neurologic: No history of head trauma or seizure disorder or focal neurologic deficits. The patient has undergone MRI scanning in 2004 due to report of memory issues. Respiratory: The patient has small cell carcinoma lung as noted. Recent pulmonary function tests have shown mild to obstructive pulmonary disease. Cough nonproductive. Chest pain in the ribs on the right side, [id number] at this time. Cardiac: History of organic heart disease with coronary stents placed. No history of orthopnea. No paroxysmal nocturnal dyspnea. The patient is unable to walk significant distances due to claudication in the leg, but has no report of exertional dyspnea. Gastrointestinal: Recent nausea, vomiting, abdominal pain or diarrhea. No nausea with chemotherapy as yet. Endocrine: No history of diabetes mellitus. No intolerance of heat or cold. Genitourinary: No history of nephrolithiases. No hematuria. No dysuria. Constitutional: No recent fevers, chills nor sweats. The remainder of the review of systems was obtained and was negative. PHYSICAL EXAMINATION: The patient is a well-developed, well-nourished gentleman, awake, alert, and fully oriented, in no acute distress. Height 70.5 inches weight 87.8 kg, body surface area 2.09 m2. Temperature 97.5, pulse 76, respirations 20, blood pressure 120/67, oxygen saturation 94% on room air. Skin: Full turgor anicteric but friable. HEENT: Examination normocephalic, atraumatic. Pupils equal round and reactive to light and accomodiation, extraocular muscles intact. Sclerae anicteric. Oropharynx with dentures in place, no lesions. Neck: Supple without thyromegaly. Lymphatics: No pathologic lymphadenopathy noted. Lungs: Clear to auscultation on the left with rhonchi at the right base, dull to percussion at the right mid field otherwise hyperresonant. Cardiac exam: Regular rhythm, point of maximal impulse nondisplaced. S1-S2 without gallop, rub, or murmur, full pulses. Abdomen: Active bowel sounds, soft, nontender without appreciable organomegaly. No guarding or rebound elicited. Liver percusses to 12 cm. The spleen percusses to 10 cm. Rectal examination: Deferred. Extremities: Without clubbing, cyanosis or edema. Neurologic examination: Mental status intact. Cranial nerves intact. Motor and sensory intact. LABORATORY DATA: Laboratory studies dated July 02, 2019 include the following white blood count 7700 per microliter, hemoglobin 14.6 grams per decliter, hematocrit 44%, platelet count 215,000, bicarbonate 25, chloride 110, BUN 14, creatinine 0.8 mg per deciliter, glucose 119 mg per deciliter, albumin 3.10 gram per deciliter, alkaline phosphatase elevated 488 consistent with bone metastases. IMPRESSION: Small cell carcinoma of the lung. The patient has extensive stage disease with a poor prognosis. He does however, clinically appear to be responding to systemic therapy with one cycle administered to date of carboplatin and etoposide. He has tolerated chemotherapy well. The patient requires improved analgesic control of pain and to this end a lengthy discussion was undertaken with the patient and his at this encounter. It was recommended the patient received both a short acting and a long-acting opioid analgesic given that he has cancer pain. He expressed concern about cost and therefore he will be prescribed morphine sulfate. A discussion was also undertaken regarding advanced directive and his wishes in the event of cardiopulmonary arrest. The patient is aware that he has a fatal disease, with a poor survival rate at 2 years. The patient and his stated clearly that in the event of cardiopulmonary arrest the patient wished for all heroic measures to be undertaken, including chest compression, cardiac shock as needed, and mechanical ventilation. PLAN: The patient is cleared to proceed with cycle #2 of chemotherapy. He will be re-prescribed allopurinol, as well as a 5-day course of prednisone as an adjunct for control of nausea. Morphine sulfate immediate release, 15 mg tablets, will be prescribed to take 1-2 tablets every 3 hours as needed for breakthrough pain. 120 tablets will be dispensed. Morphine sulfate extended release 15 mg every 12 hours will be prescribed for basal analgesia and the doses will be adjusted as needed; 60 tablets will be dispensed. The patient was asked to take MiraLax as needed to prevent constipation along with Senokot two tablets twice daily. Chest radiogram will be repeated during this second cycle of chemotherapy and he was asked return for reevaluation at 3 weeks, or sooner if the need arises. He was asked to contact this practice if the new analgesic regimen is inadequate for pain control. Electronically Signed by Cruzito Martini MD 07/02/2019 04:28 P DD: Cruzito Martini MD 07/02/2019 10:42 A DT: ambar 07/02/2019 12:54 P CC: Niles Solis MD
[2019-07-03 13:00] VITALS: BP 119/60
--- NOTE | 2019-07-03 13:00 | ONC.PHACK ---
CHEMO ADMIN CHECKLIST Order Contains Pt ID: Name, Order on Chemo Order Form?: Yes Order Form Includes ALL: Correct Tx Day, Correct Date, Correct Cycle Number Pt ID on Order form Matches: Pt ID on PHA Label Med on Chemo OrderForm Matches: PHA Label, Med Used for Preparation [facility] Jul 03, 2019 13:00
[2019-07-04 12:45] VITALS: BP 132/72
--- NOTE | 2019-07-04 13:03 | ONC.PHACK ---
CHEMO ADMIN CHECKLIST Order Contains Pt ID: Name, Order on Chemo Order Form?: Yes Order Form Includes ALL: Correct Tx Day, Correct Date, Correct Cycle Number Pt ID on Order form Matches: Pt ID on PHA Label Med on Chemo OrderForm Matches: PHA Label, Med Used for Preparation [facility] Jul 04, 2019 13:03
[2019-07-23 08:07] VITALS: BP 124/84
[2019-07-23 08:24] LABS: BASO % 0.8 % (0.0-1.0); EOS % 0.8 % (0.0-3.0); HEMATOCRIT 40.3 % (42.0-52.0); HEMOGLOBIN 13.6 g/dl (13.5-17.5); LYMPH # 1.8 10^3/uL (1.5-5.0); LYMPH % 34.7 % (24.0-44.0); MEAN CORPUSCULAR HEMOGLOBIN 31.5 pg (27.0-33.0); MEAN CORPUSCULAR HGB CONC 33.7 g/dl (32.0-36.5); MEAN CORPUSCULAR VOLUME 93.3 fl (80.0-96.0); MONO # 0.6 10^3/uL (0.0-0.8); MONO % 12.1 % (0.0-5.0); NEUTROPHILS # 2.5 10^3/uL (1.5-8.5); NEUTROPHILS % 47.9 % (36.0-66.0); PLATELET COUNT, AUTOMATED 227 10^3/uL (150-450); RED BLOOD COUNT 4.32 10^6/uL (4.30-6.10); WHITE BLOOD COUNT 5.1 10^3/uL (4.0-10.0)
[2019-07-23 08:49] LABS: ALBUMIN 3.3 GM/DL (3.2-5.2); ALT/SGPT 29 U/L (12-78); BILIRUBIN,TOTAL 0.3 MG/DL (0.2-1.0); BLOOD UREA NITROGEN 11 MG/DL (7-18); CARBON DIOXIDE LEVEL 25 MEQ/L (21-32); CHLORIDE LEVEL 111 MEQ/L (98-107); CREATININE FOR GFR 0.85 MG/DL (0.70-1.30); GLOMERULAR FILTRATION RATE > 60.0 (>42); GLUCOSE, FASTING 111 MG/DL (70-100); POTASSIUM SERUM 3.6 MEQ/L (3.5-5.1); SODIUM LEVEL 142 MEQ/L (136-145); TOTAL PROTEIN 7.1 GM/DL (6.4-8.2)
[2019-07-23 08:54] LABS: MAGNESIUM LEVEL 1.9 MG/DL (1.8-2.4)
--- NOTE | 2019-07-23 09:09 | ONC.PHACK ---
CHEMO ADMIN CHECKLIST Order Contains Pt ID: Name, Order on Chemo Order Form?: Yes Order Form Includes ALL: Correct Tx Day, Correct Date, Correct Cycle Number Pt ID on Order form Matches: Pt ID on PHA Label Med on Chemo OrderForm Matches: PHA Label, Med Used for Preparation [facility] Jul 23, 2019 09:09
--- NOTE | 2019-07-23 12:03 | MEDONC ---
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 He reports "the pain is only about a 4 out of 10 now and it was a 10 out of 10 before I started the chemotherapy. I still need to have my pain medicines changed." HISTORY OF PRESENT ILLNESS: Kwaku Stoner is a 69-year-old gentleman with a long history of heavy tobacco use, which continues at this time, complicated by a long history of atherosclerotic vascular disease and, more recently, by a diagnosis of extensive stage small cell carcinoma of the lung. His history of present illness dates to 2018 when he developed generalized, rapidly progressive bone pain, particularly in his left shoulder, along with a right leg and low back pain. He underwent imaging study, with differing interpretations of the findings, per his report. However, he underwent a radionuclide bone scan on May 30, 2019 with findings consistent with metastatic disease. These included a lesion in the right iliac bone adjacent to the sacroiliac joints, focus in the right femur, pathologic uptake in the T12 vertebral body, in L3, L10 and L11, as well as suspicious lesions in multiple ribs and the left scapula. Due to these findings, he was directed to the emergency department at [facility] on June 09, 2019. CT scan of the chest that day documented a right hilar and mediastinal mass with extension into the adjacent right upper lobe of the lung. The mass measured approximately 6.3 cm x 7.2 cm with adjacent enlarged lymph nodes superior to the mass. Note was also made of scattered atherosclerotic calcifications of the thoracic aorta with compression of the superior vena cava and encasement of the right upper lobe pulmonary artery. Fracture was noted in the lateral aspect of the right eighth rib. The patient was hospitalized and narcotic analgesics initiated for control of pain. CT scan of the abdomen showed an infrarenal abdominal aortic aneurysm and bilateral adrenal masses. Diverticulosis was noted incidentally. The patient received systemic chemotherapy consisting of carboplatinum at AUC of 6 on day 1 and etoposide 100 mg/m2 given on days 1 to 3, with cycle number one beginning on June 11, 2019. He was subsequently discharged to home. He was seen as an outpatient on July 02, 2019 at which time he was due for a second cycle of treatment. He underwent chest radiogram that documented a significant response to therapy with a reduction in the size of the pulmonary mass. He tolerated the second cycle of carboplatin with etoposide without nausea or vomiting and returns today reporting that he continues to have pain when he moves but at rest pain is 4 out of 10 in intensity, a significant improvement from 10 out of 10 prior to therapy. His overall Karnofsky performance status is estimated at 60% at this time, limited by pain and exertional dyspnea. He also reports constipation with opioid analgesics. ALLERGIES: None known. CURRENT MEDICATIONS: - allopurinol 100 mg by mouth q. day - aspirin 81 mg p.o. q. day - citalopram 40 mg p.o. q. day - Zofran 8 mg p.o. q.8 h p.r.n. nausea - pravastatin 40 mg p.o. q.p.m. - pregabalin 50 mg p.o. b.i.d. - Compazine 10 mg p.o. q.8 h p.r.n. nausea - tamsulosin 0.4 mg p.o. q. day - topiramate 50 mg p.o. q. day - morphine sulfate extended release 30 mg p.o. b.i.d. - morphine sulfate immediate release 15 mg p.o. q.4 h p.r.n. PAST MEDICAL HISTORY: The patient has past history significant for small cell carcinoma of the lung, extensive stage disease with bone metastases as noted. There is history of atherosclerotic vascular disease with coronary artery disease status post coronary artery stenting and peripheral arterial vascular disease with four lower extremity arterial procedures per the patient's report. He underwent femoral-femoral bypass surgery in the past but continues to have claudication in the right leg with right leg fatigue upon walking across a room. There is history of prostatic hypertrophy and history of hyperlipidemia. There is history of cholelithiasis and history of abdominal aortic aneurysm as noted. There is also history of diverticulosis. The patient had ocular cataracts in the past and is status post bilateral ocular cataracts. SOCIAL HISTORY: Tobacco: The patient smokes one pack per day at this time with an approximately 100 pack year history of prior tobacco use. He was counseled to discontinue tobacco use, but reports he is unable to do so. Alcohol: The patient is not actively using alcohol. Illicit drugs: The patient is not using illicit drugs. He is and resides with his . REVIEW OF SYSTEMS NEUROLOGIC: No history of head trauma or seizure disorder or focal neurologic deficits. The patient underwent MRI scanning in 2004 due to impaired memory, per his 's report. RESPIRATORY: The patient has small cell carcinoma as noted. Recent pulmonary function tests have shown obstructive pulmonary disease. The patient had a nonproductive cough which is improved. There is pain in the right ribcage moderate at this time. No hemoptysis. CARDIAC: History of organic heart disease with coronary artery stenting in the past. No orthopnea. No paroxysmal nocturnal dyspnea. The patient is unable to walk significant distances due to claudication in the leg. GASTROINTESTINAL: No recent nausea, vomiting, abdominal pain or diarrhea. ENDOCRINE: No history of diabetes. No intolerance of heat or cold. GENITOURINARY: No history of nephrolithiases. No hematuria. No dysuria. CONSTITUTIONAL: No recent fevers, chills or sweats. The remainder of the review of systems was obtained was negative. PHYSICAL EXAMINATION: The patient is a well-developed, well-nourished gentleman awake, alert, and fully oriented in no distress. Temperature 99.0, pulse 86, respirations 18, blood pressure 124/84, oxygen saturation 92% on room air. SKIN: Full turgor, anicteric and without gross lesions. HEENT EXAMINATION: Normocephalic, atraumatic. Pupils equal round and reactive. Extraocular muscles intact. Sclerae anicteric. Oropharynx without lesions. Dentures in place. NECK: Supple without thyromegaly. LYMPHATICS: No pathologic lymphadenopathy noted. LUNGS: Clear to auscultation on the left with rhonchi at the right base with breath sounds now audible throughout the right lung. Chest is hyperresonant. CARDIAC EXAM: Regular rhythm. Point of maximal impulse nondisplaced. S1, S2, without gallop, rub or murmur. Full pulses. ABDOMEN: Active bowel sounds, soft, nontender without appreciable thyromegaly. No guarding, rebound elicited. RECTAL EXAMINATION: Deferred. EXTREMITIES: Without cyanosis or edema. NEUROLOGIC EXAMINATION: Mental status intact. Cranial nerves intact. Motor and sensory grossly intact. LABORATORY DATA: Laboratory studies dated July 23, 2019 include the following white blood count 5100 per microliter, hemoglobin 13.6 g/dL, hematocrit 40.3%, platelet count 227,000. Serum chemistries pending at this time. On July 02, 2019 creatinine was 0.8 mg/dL, bilirubin 0.2 mg/dL. Chest radiogram July 03, 2019 reports "significantly diminished size of the right hilar/mediastinal and medial right upper lobe mass". IMPRESSION: Small cell carcinoma of the lung, extensive stage disease. The patient has had two cycles of carboplatin and etoposide and has had a clinical favorable response as well as a documented radiographic response. He has tolerated chemotherapy well without nausea and vomiting to date and no overt toxicities thus far. The patient has pain and requests a change in his short acting opioid. He expresses a strong preference for oxycodone with acetaminophen over either oxycodone alone or hydromorphone. He reports that morphine sulfate immediate release makes him "jittery." PLAN: The patient is cleared to proceed with a third cycle of carboplatin and etoposide at this time. This however is pending results of kidney function and liver function. Morphine sulfate immediate release was discontinued and a prescription sent electronically for oxycodone 10 mg combined with acetaminophen 325 mg with instructions to take 1-2 tablets every 4 hours as needed for pain. 100 tablets were dispensed and generic was requested. The patient was asked to contact this practice should questions or concerns arise prior to his return appointment in 3 weeks. Electronically Signed by Cruzito Martini MD 07/23/2019 04:09 P DD: Cruzito Martini MD 07/23/2019 08:41 A DT: kevin 07/23/2019 11:35 A CC: Niles Solis MD
[2019-07-24 10:11] VITALS: BP 113/71
--- NOTE | 2019-07-24 11:31 | ONC.PHACK ---
CHEMO ADMIN CHECKLIST Order Contains Pt ID: Name, Order on Chemo Order Form?: Yes Order Form Includes ALL: Correct Tx Day, Correct Date, Correct Cycle Number Pt ID on Order form Matches: Pt ID on PHA Label Med on Chemo OrderForm Matches: PHA Label, Med Used for Preparation [facility] Jul 24, 2019 11:31
[2019-07-25 11:22] VITALS: BP 130/68
--- NOTE | 2019-07-25 11:48 | ONC.PHACK ---
CHEMO ADMIN CHECKLIST Order Contains Pt ID: Name, Order on Chemo Order Form?: Yes Order Form Includes ALL: Correct Tx Day, Correct Date, Correct Cycle Number Pt ID on Order form Matches: Pt ID on PHA Label Med on Chemo OrderForm Matches: PHA Label, Med Used for Preparation [facility] Jul 25, 2019 11:48
[2019-08-18 10:36] VITALS: BP 124/83
[2019-08-18 11:05] LABS: BASO % 0.3 % (0.0-1.0); EOS # 0.1 10^3/uL (0.0-0.5); EOS % 0.5 % (0.0-3.0); HEMATOCRIT 40.6 % (42.0-52.0); HEMOGLOBIN 13.5 g/dl (13.5-17.5); LYMPH % 22.3 % (24.0-44.0); MEAN CORPUSCULAR HEMOGLOBIN 32.1 pg (27.0-33.0); MEAN CORPUSCULAR HGB CONC 33.3 g/dl (32.0-36.5); MEAN CORPUSCULAR VOLUME 96.7 fl (80.0-96.0); MONO # 0.8 10^3/uL (0.0-0.8); MONO % 8.2 % (0.0-5.0); NEUTROPHILS # 6.1 10^3/uL (1.5-8.5); PLATELET COUNT, AUTOMATED 150 10^3/uL (150-450); WHITE BLOOD COUNT 9.2 10^3/uL (4.0-10.0)
[2019-08-18 11:16] LABS: ALBUMIN 3.3 GM/DL (3.2-5.2); ALT/SGPT 21 U/L (12-78); BILIRUBIN,TOTAL 0.3 MG/DL (0.2-1.0); BLOOD UREA NITROGEN 14 MG/DL (7-18); CALCIUM LEVEL 8.8 MG/DL (8.8-10.2); CARBON DIOXIDE LEVEL 24 MEQ/L (21-32); CHLORIDE LEVEL 107 MEQ/L (98-107); CREATININE FOR GFR 0.83 MG/DL (0.70-1.30); GLOMERULAR FILTRATION RATE > 60.0 (>42); GLUCOSE, FASTING 110 MG/DL (70-100); POTASSIUM SERUM 3.7 MEQ/L (3.5-5.1); SODIUM LEVEL 139 MEQ/L (136-145)
--- NOTE | 2019-08-18 12:14 | ONC.PHACK ---
CHEMO ADMIN CHECKLIST Order Contains Pt ID: Name, Order on Chemo Order Form?: Yes Order Form Includes ALL: Correct Tx Day, Correct Date, Correct Cycle Number Pt ID on Order form Matches: Pt ID on PHA Label Med on Chemo OrderForm Matches: PHA Label, Med Used for Preparation [facility] Aug 18, 2019 12:14
[2019-08-19 08:50] VITALS: BP 130/71
--- NOTE | 2019-08-19 08:54 | ONC.PHACK ---
CHEMO ADMIN CHECKLIST Order Contains Pt ID: Name, Order on Chemo Order Form?: Yes Order Form Includes ALL: Correct Tx Day, Correct Date, Correct Cycle Number Pt ID on Order form Matches: Pt ID on PHA Label Med on Chemo OrderForm Matches: PHA Label, Med Used for Preparation [facility] Aug 19, 2019 08:54
--- NOTE | 2019-08-21 08:57 | MEDONC ---
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 He reports "I am still having pain and the oxycodone dose is not high enough". HISTORY OF PRESENT ILLNESS: Kwaku Stoner is a 69-year-old gentleman with a long history of heavy tobacco use, which continues at this time, complicated by a long history of atherosclerotic vascular disease and, more recently, by a diagnosis of extensive stage small cell carcinoma of the lung. His history of present illness dates to 2018 when he developed generalized, rapidly progressive bone pain, particularly in the left shoulder, along with pain in the right leg and low back. He underwent imaging studies, with varying interpretations of the findings, per his report. However, a radionuclide bone scan was performed May 30, 2019, with findings consistent with metastatic disease. Lesions identified on bone scan included metastasis in the right iliac bone adjacent to the sacroiliac joints, a focus in the right femur, pathologic uptake in the T12 vertebral body, in L3, L10, and L11, as well as suspicious lesions in multiple ribs and the left scapula. Due to these findings, he was directed to the emergency department at [facility] on June 09, 2019. CT scan of the chest on that date documented a right hilar and mediastinal mass with extension into the adjacent right upper lobe of the lung. The mass measured approximately 6.3 cm x 7.2 cm with adjacent enlarged lymph nodes superior to the mass. Note was also made of scattered atherosclerotic calcifications of the thoracic aorta with compression of the superior vena cava encasement of the right upper lobe pulmonary artery by the tumor. A fracture was noted in the lateral aspect of the right eighth rib. Mr. Stoner was hospitalized and narcotic analgesics were initiated for control of pain. CT scan of the abdomen showed an infrarenal abdominal aortic aneurysm and bilateral adrenal masses. Diverticulosis was also noted incidentally. Mr. Stoner began systemic chemotherapy using carboplatin at AUC of six on day one and etoposide 100 mg/m2 given on days one through three, with cycle one day one beginning on June 11, 2019. He was subsequently discharged home. He was seen as an outpatient on July 02, 2019, at which time he was due for a second cycle of treatment. A chest radiogram documented a significant favorable response to therapy with a reduction in the size of the pulmonary mass. He tolerated the second cycle of carboplatin with etoposide without nausea or vomiting and was most recently seen on July 23, 2019. At that time he reported pain when he moved, with pain at rest rated at 4 out of 10 in intensity, a significant improvement from the prior 10 out of 10 pain. He had been experiencing. He returns at this time, reporting persistence of pain, still rated approximately 4/10 in intensity, but improved with opioid analgesics. However, he reports that he does not feel that the dose of oxycodone is adequate at this time. Constipation previously present has now resolved with use of aggressive laxatives. His overall Karnofsky performance status is estimated at 60-70% at present. ALLERGIES: None known. CURRENT MEDICATIONS: Allopurinol 100 mg by mouth daily, aspirin 81 mg by mouth daily, citalopram 40 mg by mouth daily, Zofran 8 mg by mouth every 8 hours as needed for nausea, pravastatin 40 mg by mouth every evening, pregabalin 50 mg by mouth twice a day, Compazine 10 mg by mouth every 8 hours as needed for nausea, oxycodone /acetaminophen 7.5 mg / 325 mg 1 tablet by mouth every 4 hours as needed, morphine sulfate extended release 30 mg by mouth twice a day. PAST MEDICAL HISTORY, SOCIAL HISTORY, AND FAMILY HISTORY: The patient has past medical history, social history and family history is as documented in medical oncology office notes of July 23, 2019. REVIEW OF SYSTEMS: Neurologic: No history of head trauma or seizure disorder. The patient underwent MRI scan in 2004 due to impaired memory per his 's report. Respiratory: The patient has small cell carcinoma of the lung as noted. Recent pulmonary function tests documented obstructive pulmonary disease. The patient had a nonproductive cough which is now resolved. He has pain in the right rib cage which is moderate at present. No hemoptysis. Cardiac history of organic heart disease with coronary artery stenting in the past. No orthopnea. No paroxysmal nocturnal dyspnea. The patient is unable to walk significant distances due to claudications in the legs. Gastrointestinal: No recent nausea, vomiting, abdominal pain or diarrhea. Endocrine: No history of diabetes. No intolerance of heat or cold no polyphagia, polyuria, polydipsia. Genitourinary: No history of nephrolithiases no hematuria. No dysuria constitutional recent fevers, chills or sweats. Musculoskeletal: The patient has left shoulder pain low back pain and leg pain as detailed above, controlled fairly well with narcotic analgesics although incompletely. The remainder of review of systems was obtained was negative. PHYSICAL EXAMINATION: The patient is a well-developed, well-nourished gentleman, awake, alert fully oriented, cooperative in no distress acutely temperature 97.8, pulse 80, respirations 616 blood pressure 130/71, oxygen saturation 95% on room air. Skin: Full turgor anicteric and without evident lesions. HEENT: Examination normocephalic, atraumatic. Pupils round and reactive extra muscles intact. Sclerae anicteric. Oropharynx without lesions. Dentures in place. Neck: Supple without thyromegaly. Lymphatics no pathologic lymphadenopathy noted. Lungs: Clear to auscultation on the left with rhonchi at the right base and breath sounds audible throughout the right lung the chest is hyperresonant cardiac exam regular rhythm point of maximal impulse nondisplaced. S1, S2, without gallop or rub or murmur noted. Abdomen: Active bowel sounds, soft, nontender without appreciable organomegaly. No guarding, rebound elicited. Rectal examination: Deferred. Extremities: Without cyanosis or edema but there is mild clubbing present. Neurologic exam mental status intact. Cranial nerves intact. Motor and sensory grossly intact. LABORATORY DATA: Laboratory studies dated August 18, 2019 include the following white blood count 9,200 per microliter, hemoglobin 13.5 grams per decaliter hematocrit 40.6% platelet count 150,000, BUN 14, creatinine 0.83 mg per decaliter glucose 110 mg per decaliter bilirubin total 0.3 mg per decaliter, alkaline phosphatase mildly elevated at 164, decreased from 488 on July 02, 2019. Carcinoembryonic antigen July 23, 2019 7.4 nanogram per ML. Chest radiogram July 03, 2019 reports "significantly diminished size of the right hilar / mediastinal and medial right upper lobe mass.". IMPRESSION: Small cell carcinoma of the lung, extensive stage disease, symptomatic from bone metastases. The patient has now completed three cycles of carboplatin and etoposide and has had a clinical favorable response as documented radiographically. Alkaline phosphatase levels also declining suggesting improvement in bone metastases. He has tolerated chemotherapy extremely well without nausea or vomiting to date and without overt toxicities. The patient has had inadequate control of pain, and therefore analgesics will again be altered. Also the patient has not been treated to date with PD-L1 inhibitory monoclonal antibody therapy and he may benefit from the addition of immunotherapy to his conventional chemotherapy. This was discussed with the patient and his and they are amendable to the introduction of immunotherapy in the near future, which is within the standard of care. PLAN: Mr. Stoner will proceed with the fourth cycle of chemotherapy as scheduled this week. Oxycodone / acetaminophen will be discontinued, and he will be changed to hydromorphone 4 mg tablets with instructions to take one to two every 4 hours as needed for control of pain as his relatively short acting analgesic. He will continue morphine sulfate extended release every 12 hours for basal pain relief. The patient and his concurred with this plan. He will return in 3 weeks for reevaluation or sooner if problems arise in the interim. Electronically Signed by Cruzito Martini MD 08/24/2019 04:21 P DD: Cruzito Martini MD 08/19/2019 02:44 P DT: estela 08/21/2019 08:09 A CC: Niles Solis MD
[2019-08-21 09:03] VITALS: BP 110/69
--- NOTE | 2019-08-21 09:04 | ONC.PHACK ---
CHEMO ADMIN CHECKLIST Order Contains Pt ID: Name, Order on Chemo Order Form?: Yes Order Form Includes ALL: Correct Tx Day, Correct Date, Correct Cycle Number Pt ID on Order form Matches: Pt ID on PHA Label Med on Chemo OrderForm Matches: PHA Label, Med Used for Preparation [facility] Aug 21, 2019 09:04
[2019-09-11 08:51] LABS: BASO % 0.2 % (0.0-1.0); EOS % 0.3 % (0.0-3.0); HEMATOCRIT 36.8 % (42.0-52.0); HEMOGLOBIN 12.4 g/dl (13.5-17.5); LYMPH # 2.2 10^3/uL (1.5-5.0); LYMPH % 35.6 % (24.0-44.0); MEAN CORPUSCULAR HEMOGLOBIN 33.4 pg (27.0-33.0); MEAN CORPUSCULAR HGB CONC 33.7 g/dl (32.0-36.5); MEAN CORPUSCULAR VOLUME 99.2 fl (80.0-96.0); MONO # 0.6 10^3/uL (0.0-0.8); MONO % 9.6 % (0.0-5.0); NEUTROPHILS # 3.3 10^3/uL (1.5-8.5); NEUTROPHILS % 53.2 % (36.0-66.0); PLATELET COUNT, AUTOMATED 154 10^3/uL (150-450); RED BLOOD COUNT 3.71 10^6/uL (4.30-6.10); WHITE BLOOD COUNT 6.3 10^3/uL (4.0-10.0)
[2019-09-11 09:03] VITALS: BP 119/71
[2019-09-11 09:16] LABS: ALBUMIN 3.4 GM/DL (3.2-5.2); ALT/SGPT 21 U/L (12-78); BILIRUBIN,TOTAL 0.3 MG/DL (0.2-1.0); BLOOD UREA NITROGEN 14 MG/DL (7-18); CALCIUM LEVEL 8.6 MG/DL (8.8-10.2); CARBON DIOXIDE LEVEL 26 MEQ/L (21-32); CHLORIDE LEVEL 107 MEQ/L (98-107); CREATININE FOR GFR 0.87 MG/DL (0.70-1.30); GLOMERULAR FILTRATION RATE > 60.0 (>42); GLUCOSE, FASTING 118 MG/DL (70-100); POTASSIUM SERUM 3.8 MEQ/L (3.5-5.1); SODIUM LEVEL 140 MEQ/L (136-145); TOTAL PROTEIN 6.9 GM/DL (6.4-8.2)
--- NOTE | 2019-09-12 09:12 | MEDONC ---
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 He reports, "I am still having pain, but it is manageable with the Dilaudid. I am used to the pain. I have had it all my life". HISTORY OF PRESENT ILLNESS: Kwaku Stoner is a 69-year-old gentleman with a long history of heavy tobacco use, which continues at this time, complicated by a long history of atherosclerotic vascular disease and, more recently, by a diagnosis of extensive stage small cell carcinoma of the lung. His history of present illness dates to 2018 when he developed generalized, rapidly progressive bone pain, particularly in the left shoulder along with pain in the right leg and low back. He underwent diagnostic imaging studies with varying interpretations of the findings initially, per his report. However, a radionuclide bone scan was performed May 30, 2019 with findings consistent with metastatic disease. Lesions were identified on bone scan that included metastases in the right iliac bone adjacent to the sacroiliac joints, a focus in the right femur, pathologic uptake in the T12 vertebral body, in L3, L10, and L11, as well as, suspicious lesions in multiple ribs and the left scapula. Due to these findings, he was directed to the emergency department at [facility] on June 09, 2019. CT scan of the chest that day documented a right hilar and mediastinal mass with extension into the adjacent right upper lobe of the lung. The mass measured approximately 6.3 cm x 7.2 cm with adjacent enlarged lymph nodes superior to the mass. Note was also made of scattered atherosclerotic calcifications of the thoracic aorta with compression of the superior vena cava, and encasement of the right upper lobe pulmonary artery by tumor. A fracture was noted in the lateral aspect of the right eighth rib. Mr. Stoner was hospitalized and narcotic analgesics were initiated for control of pain. CT scan of the abdomen showed an infrarenal abdominal aortic aneurysm as well as bilateral adrenal masses. Diverticulosis was also noted incidentally. Mr. Stoner began systemic chemotherapy using carboplatin at AUC of 6 on day one and etoposide 100 mg/m2 given on days one through three with cycle one day one beginning on June 11, 2019. He was subsequently discharged home. He was evaluated as an outpatient on July 02, 2019, at which time, he was due for a second cycle of therapy. A chest radiogram documented a significant favorable response to therapy at that time with a reduction in the size of the pulmonary mass. He tolerated the second cycle of carboplatin and etoposide without nausea or vomiting and received it beginning on July 23, 2019. The fourth cycle of therapy began on August 18, 2019 and was completed on August 21, 2019. He tolerated all four cycles of therapy without nausea or vomiting. Narcotic analgesics were adjusted, and the patient reports improved control of pain over the past 3 weeks. Constipation previously present has now resolved with the use of aggressive laxatives. His pain is rated 4 out of 10 in intensity and his overall Karnofsky performance status is estimated at 70% at this time. ALLERGIES: The patient has no known medication allergies. CURRENT MEDICATIONS: Allopurinol 100 mg p.o. q. day, aspirin 81 mg p.o. q. day, citalopram 40 mg p.o. q. day, Zofran 8 mg p.o. q.8 h p.r.n. nausea, pravastatin 40 mg p.o. q.p.m. pregabalin 50 mg p.o. b.i.d., Compazine 10 mg p.o. q.8 h p.r.n. nausea, hydromorphone 4 mg every 4 hours p.r.n. pain, morphine sulfate extended release 30 mg p.o. b.i.d. PAST MEDICAL HISTORY, SOCIAL HISTORY AND FAMILY HISTORY: The patient's past medical, social and family history are as documented in medical oncology office notes of July 23, 2019. REVIEW OF SYSTEMS: Neurologic: No history of head trauma. The patient underwent MRI scan in 2004 to evaluate impaired memory per the patient's 's report. Respiratory: The patient has small cell carcinoma of the lung as noted. Recent pulmonary function tests documented obstructive pulmonary disease. The patient had a nonproductive cough which is now resolved. Pain in the right ribcage has improved. No recent hemoptysis. 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 No orthopnea. No paroxysmal nocturnal dyspnea. The patient is unable to walk significant distances due to claudications in the legs. Gastrointestinal: No recent nausea, vomiting, abdominal pain or diarrhea. Endocrine: No history of diabetes. No intolerance of heat or cold. No polyuria, polyphagia or polydipsia. Genitourinary: No history of nephrolithiases. No hematuria. No dysuria. Constitutional: No recent fevers, chills or sweats. Musculoskeletal: The patient had left shoulder pain which is improved, but low back pain and leg pain continue, although with improved control. The remainder of the review of systems was obtained and was negative. PHYSICAL EXAMINATION: The patient is a well-developed, well-nourished, gentleman awake, alert and fully oriented, in no distress. Temperature 97.3, pulse 72, respirations 18, blood pressure 119/71, and oxygen saturation 93% on room air. Skin: Full turgor, anicteric. HEENT Examination: Normocephalic, atraumatic. Pupils equal round, reactive to light and accommodate. Extraocular muscles intact. Sclerae anicteric. Oropharynx without lesions. Dentures in place. Neck: Supple without thyromegaly. Lymphatics: No pathologic lymphadenopathy noted. Lungs: Clear to auscultation on the left with rhonchi at the right base and breath sounds audible throughout the right lung. The chest is hyperresonant. Cardiac Exam: Regular rhythm. Point of maximal impulse nondisplaced. S1, S2, without gallop, rub or murmur noted. Abdomen: Active bowel sounds, soft, nontender, without appreciable organomegaly. No guarding or rebound elicited. Rectal Examination: Deferred. Extremities: Without cyanosis or edema, but there is clubbing present. Neurologic Examination: Mental status intact. Cranial nerves intact. Motor and sensory grossly intact. LABORATORY DATA: Laboratory studies dated September 11, 2019 include: White blood count 6100 per microliter, hemoglobin 12.4 grams per deciliter, hematocrit 36.8%, platelet count 154,000, BUN 14, creatinine 0.87 mg per deciliter, glucose 118 mg per deciliter, calcium 8.6 mg per deciliter, total bilirubin 0.3 mg per deciliter, alkaline phosphatase 120 decreased from 264 on July 23, 2019. Carcinoembryonic antigen 7.4 nanogram per mL on July 23, 2019, repeat value pending at this time. IMAGING STUDIES: Include CT scan of the chest September 01, 2019. The radiologist reports, "Rather dramatic improvement in the pulmonary parenchymal, mediastinal, right hilar and vertebral disease". IMPRESSION: Small cell carcinoma of the lung, extensive stage disease. The patient has had an excellent partial response to induction chemotherapy using etoposide and carboplatin. It was recommended, based on [facility] guidelines, that the patient begin atezolizumab at this time as immunotherapy maintenance. Potential toxicities and benefits of atezolizumab were discussed with the patient and his and the patient signed consent for therapy. PLAN: Mr. Stoner will have hydromorphone prescription renewed at this time. He will begin atezolizumab 1200 mg intravenously every 21 days to be continued until progression of disease or unacceptable toxicity. He was asked to return for reevaluation in 3 weeks, or sooner if need arises. The patient concurred with this plan. Electronically Signed by Cruzito Martini MD 09/13/2019 01:03 P DD: Cruzito Martini MD 09/11/2019 06:26 P DT: neida 09/12/2019 08:44 A CC: Niles Solis MD
[2019-10-03 08:41] VITALS: BP 137/83
[2019-10-03 08:55] LABS: BASO % 0.2 % (0.0-1.0); EOS # 0.1 10^3/uL (0.0-0.5); EOS % 1.5 % (0.0-3.0); HEMATOCRIT 44.2 % (42.0-52.0); HEMOGLOBIN 14.9 g/dl (13.5-17.5); LYMPH % 20.4 % (24.0-44.0); MEAN CORPUSCULAR HEMOGLOBIN 33.9 pg (27.0-33.0); MEAN CORPUSCULAR HGB CONC 33.7 g/dl (32.0-36.5); MEAN CORPUSCULAR VOLUME 100.7 fl (80.0-96.0); MONO # 0.6 10^3/uL (0.0-0.8); MONO % 6.2 % (0.0-5.0); NEUTROPHILS # 6.8 10^3/uL (1.5-8.5); NEUTROPHILS % 71.2 % (36.0-66.0); PLATELET COUNT, AUTOMATED 166 10^3/uL (150-450); RED BLOOD COUNT 4.39 10^6/uL (4.30-6.10); WHITE BLOOD COUNT 9.6 10^3/uL (4.0-10.0)
[2019-10-03 09:23] LABS: ALBUMIN 3.8 GM/DL (3.2-5.2); ALT/SGPT 29 U/L (12-78); BILIRUBIN,TOTAL 0.3 MG/DL (0.2-1.0); BLOOD UREA NITROGEN 12 MG/DL (7-18); CALCIUM LEVEL 8.6 MG/DL (8.8-10.2); CARBON DIOXIDE LEVEL 23 MEQ/L (21-32); CHLORIDE LEVEL 109 MEQ/L (98-107); CREATININE FOR GFR 0.82 MG/DL (0.70-1.30); GLOMERULAR FILTRATION RATE > 60.0 (>42); GLUCOSE, FASTING 129 MG/DL (70-100); POTASSIUM SERUM 3.6 MEQ/L (3.5-5.1); SODIUM LEVEL 140 MEQ/L (136-145); TOTAL PROTEIN 7.3 GM/DL (6.4-8.2)
--- NOTE | 2019-10-06 11:01 | MEDONC ---
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 He reports "my pain is about a 4 out of 10, but I only take four Dilaudid tablets a day". HISTORY OF PRESENT ILLNESS: Kwaku Stoner is a 69-year-old gentleman with a long history of heavy tobacco use, which continues at this time, complicated by a long history of atherosclerotic vascular disease and, more recently, by a diagnosis of extensive stage small cell carcinoma of the lung. His history of present illness dates to 2018, when he developed generalized, rapidly progressive bone pain, particularly in the left shoulder, along with pain in the right leg and low back. He underwent diagnostic imaging studies with varying interpretations of the findings initially, per his report. However, a radionuclide bone scan was performed May 30, 2019 with findings consistent with metastatic disease. That included metastases in the right iliac bone adjacent to the sacroiliac joints, a focus in the right femur, pathologic uptake in the T12 vertebral body, in L3, L10 and L11, as well as suspicious lesions in multiple ribs and the left scapula. Due to these findings he was directed to the emergency department at [facility] on June 09, 2019. CT scan of the chest on that day documented a right hilar and mediastinal mass with extension into the adjacent right upper lobe of the lung. The mass measured approximately 6.3 cm x 7.2 cm with adjacent enlarged lymph nodes superior to the mass. Note was also made of scattered atherosclerotic calcifications of the thoracic aorta with compression of the superior vena cava and encasement of the right upper lobe pulmonary artery by tumor. A fracture was noted in the lateral aspect of the right 8th rib. Mr. Stoner was hospitalized and narcotic analgesics were initiated for control of pain. CT scan of the abdomen showed an infrarenal abdominal aortic aneurysm. The patient underwent tissue sampling on June 10, 2019 (specimen [id number]) with findings of small cell carcinoma of the lung. Mr. Stoner began systemic chemotherapy using carboplatin at AUC of 6 on day 1 and etoposide 100 mg/m2 days 1-3 of each cycle with cycle #1 beginning on June 11, 2019. He was then discharged to home. He is evaluated as an outpatient on July 02, 2019 at which time he was due for cycle number two. Chest radiogram documented a significant favorable response at that time. He tolerated the second cycle of carboplatinum and etoposide without nausea or vomiting, with treatment beginning on July 23, 2019. He then proceeded to a third cycle on August 18, 2019, and a subsequent fourth cycle of therapy. By cycle four his bone pain had improved dramatically, rated 4 out of 10 in intensity and this remains the case at present. Following four cycles of carboplatinum and etoposide it was elected to begin maintenance immunotherapy using atezolizumab. He tolerated the first dose of atezolizumab without complication and returns at this time prior to a second dose. He reports no new symptoms, although he does have, and his Karnofsky performance status is estimated at 70%. ALLERGIES: The patient has no known medication allergies. CURRENT MEDICATIONS: - allopurinol 100 mg by mouth every day - aspirin 81 mg by mouth every day - citalopram 40 mg by mouth every day - Zofran 8 mg by mouth every 8 hours as needed nausea - pravastatin 40 mg by mouth every evening - pregabalin 50 mg by mouth twice a day - Compazine 10 mg by mouth every 8 hours as needed nausea - hydromorphone 4 mg tablets two by mouth every morning, one by mouth at midday, and one by mouth at bedtime - morphine sulfate extended release 30 mg by mouth twice a day PAST MEDICAL HISTORY, SOCIAL HISTORY, AND FAMILY HISTORY: The patient's past medical, social and family history are as documented in medical oncology notes of July 23, 2019 REVIEW OF SYSTEMS: Neurologic: No history of head trauma. The patient underwent MRI scan in 2005 to evaluate impaired memory per the patient's 's report. No seizure history. No tremor. No focal neurologic deficits. Respiratory: The patient has small cell carcinoma of the lung. Recent pulmonary function tests have documented obstructive pulmonary disease. The patient previously had a nonproductive cough which has now resolved. Pain in the right ribcage has improved. No recent hemoptysis. 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 No orthopnea. No paroxysmal nocturnal dyspnea. The patient is unable to walk significant distances due to claudications in the legs. Gastrointestinal: No recent nausea, vomiting, abdominal pain or diarrhea. Endocrine: No history of diabetes. No intolerance of heat or cold. No polyuria, polydipsia or polyphagia. Genitourinary: No history of nephrolithiasis. No hematuria. No dysuria. Constitutional: No recent fevers, chills or sweats. Musculoskeletal: The patient has left shoulder pain which has improved but low back pain and leg pain continue although with improved control. No recent fractures. The remainder of review of systems was obtained and was negative. PHYSICAL EXAMINATION: The patient is a well-developed, well-nourished gentleman awake, alert and fully oriented in no acute distress. Temperature 97.9, pulse 87, respirations 18, blood pressure 137/83, oxygen saturation 95% on room air. Skin: Full turgor, anicteric and without open wounds. HEENT: Examination normocephalic, atraumatic. Pupils round and reactive, extraocular muscles intact. Sclerae anicteric. Oropharynx without lesions. Dentures in place. Neck: Supple without thyromegaly. Lymphatics: No pathologic lymphadenopathy appreciated. Lungs: Clear to auscultation on the left side with rhonchi at the right base. Breath sounds are audible throughout the right lung. The chest is hyperresonant. Cardiac exam: Regular rhythm. Point of maximal impulse nondisplaced. S1, S2, without gallop or murmur. Abdomen: Active bowel sounds, soft, nontender without appreciable organomegaly. No guarding or rebound elicited. Rectal examination: Deferred. Extremities: Without cyanosis or edema but there is clubbing present. Neurologic examination: Mental status intact. Cranial nerves intact. Motor and sensory grossly intact. LABORATORY DATA: Laboratory studies dated October 03, 2019 include sodium 140, potassium 3.6, chloride 109, bicarbonate 23, BUN 12, creatinine 0.82 mg per deciliter, calcium 8.6 mg per deciliter, total bilirubin 0.3 mg per deciliter, albumin 3.8 gram per deciliter, CEA 8.4 nanogram per mL, increased from 7.6 nanogram per mL on September 11, 2019. Most recent imaging study includes CT scan of the abdomen and pelvis. This reports improvement noted in T12 and T9 and right iliac bone sites of hematogenous metastases. No new metastatic focus is seen. The right adrenal nodule is decreased in size as well. No new mass or adenopathy. Cholelithiases were noted along with colonic diverticulosis. IMPRESSION: Small cell carcinoma of the lung, extensive stage disease, in response to therapy. The patient has had a formal partial response to induction therapy using etoposide and carboplatin. Based on [facility] Guidelines the patient has begun atezolizumab as immunotherapy maintenance. He has had no toxicities to date. CEA level has risen slightly and this will require ongoing monitoring. If there is evidence of progression of disease at some point, then carboplatin and etoposide may be reinitiated, or alternatively topotecan added to the patient's therapy. PLAN: Mr. Stoner had hydromorphone prescription renewed at this time. Prescription for tetrahydrocannabinol was made as an appetite stimulant as he reports anorexia. He is cleared to proceed with atezolizumab at this time and he will return for reevaluation in 3 weeks or sooner if the need arises. Electronically Signed by Cruzito Martini MD 10/10/2019 08:50 A DD: Cruzito Martini MD 10/03/2019 01:05 P DT: ambar 10/06/2019 10:20 A CC: Niles Solis MD
[2019-10-24 10:10] LABS: BASO % 0.1 % (0.0-1.0); EOS # 0.2 10^3/uL (0.0-0.5); EOS % 2.2 % (0.0-3.0); HEMATOCRIT 45.7 % (42.0-52.0); HEMOGLOBIN 15.3 g/dl (13.5-17.5); LYMPH # 2.2 10^3/uL (1.5-5.0); LYMPH % 27.5 % (24.0-44.0); MEAN CORPUSCULAR HEMOGLOBIN 33.3 pg (27.0-33.0); MEAN CORPUSCULAR HGB CONC 33.5 g/dl (32.0-36.5); MEAN CORPUSCULAR VOLUME 99.6 fl (80.0-96.0); MONO # 0.5 10^3/uL (0.0-0.8); MONO % 6.6 % (0.0-5.0); NEUTROPHILS % 63.2 % (36.0-66.0); PLATELET COUNT, AUTOMATED 123 10^3/uL (150-450); RED BLOOD COUNT 4.59 10^6/uL (4.30-6.10); WHITE BLOOD COUNT 7.9 10^3/uL (4.0-10.0)
[2019-10-24 10:14] VITALS: BP 122/79
[2019-10-24 10:36] LABS: ALBUMIN 3.6 GM/DL (3.2-5.2); ALT/SGPT 25 U/L (12-78); BILIRUBIN,TOTAL 0.2 MG/DL (0.2-1.0); BLOOD UREA NITROGEN 16 MG/DL (7-18); CALCIUM LEVEL 8.8 MG/DL (8.8-10.2); CARBON DIOXIDE LEVEL 27 MEQ/L (21-32); CHLORIDE LEVEL 108 MEQ/L (98-107); CREATININE FOR GFR 0.92 MG/DL (0.70-1.30); GLOMERULAR FILTRATION RATE > 60.0 (>42); GLUCOSE, FASTING 108 MG/DL (70-100); POTASSIUM SERUM 3.9 MEQ/L (3.5-5.1); SODIUM LEVEL 140 MEQ/L (136-145); TOTAL PROTEIN 6.9 GM/DL (6.4-8.2)
--- NOTE | 2019-10-24 10:50 | ONC.PHACK ---
CHEMO ADMIN CHECKLIST Order Contains Pt ID: Name, Order on Chemo Order Form?: Yes Order Form Includes ALL: Correct Tx Day, Correct Date, Correct Cycle Number Pt ID on Order form Matches: Pt ID on PHA Label Med on Chemo OrderForm Matches: PHA Label, Med Used for Preparation [facility] Oct 24, 2019 10:50
--- NOTE | 2019-10-28 09:14 | MEDONC ---
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 He reports "My pain is only about a three out of ten as long as I take the hydromorphone pills." HISTORY OF PRESENT ILLNESS: Kwaku Stoner is a 69-year-old gentleman with a long history of heavy tobacco use, which continues at this time, complicated by atherosclerotic vascular disease and more recently by a diagnosis of extensive stage small cell carcinoma of the lung. His history of present illness dates to 2018 when he developed generalized rapidly progressive bone pain, particularly in the left shoulder, along with pain in the right leg and low back. He underwent diagnostic imaging studies with varying interpretations of the findings initially, per his recollection. However, a radionuclide bone scan was performed May 30, 2019, with findings consistent with metastatic disease. Those findings included metastases in the right iliac bone adjacent to the sacroiliac joints, a focus of disease in the right femur, pathologic uptake in the T12 vertebral body, in L3, L10, and L11, as well as suspicious lesions in multiple ribs and the left scapula. Due to these findings, he was directed to the emergency department at [facility] on June 09, 2019. CT scan of the chest on that date documented a right hilar and mediastinal mass with extension into the adjacent right upper lobe of the lung. The mass measured approximately 6.3 cm x 7.2 cm with adjacent enlarged lymph nodes superior to the mass. Note was also made of scattered atherosclerotic calcifications of the thoracic aorta with compression of the superior vena cava and encasement of the right upper lobe pulmonary artery by tumor. A fracture was noted in the lateral aspect of the right 8th rib. Mr. Stoner was hospitalized, and narcotic analgesics were initiated for control of pain. CT scan of the abdomen showed an infrarenal abdominal aortic aneurysm. The patient underwent tissue sampling on June 10, 2019 (specimen [id number]) with findings of small cell carcinoma of the lung. Mr. Stoner began systemic chemotherapy using carboplatin at AUC of 6 on day 1 and etoposide 100 mg/m2 days 1-3 of each cycle, with cycle #1 beginning June 11, 2019. He was then discharged to home. He was evaluated as an outpatient on July 02, 2019, at which time he was due for cycle #2. Chest radiogram documented a significant favorable response to treatment with shrinkage of the tumor. He tolerated the second cycle of carboplatin and etoposide without nausea or vomiting with treatment beginning on July 23, 2019. A third cycle of treatment began on August 18, 2019, and he then completed the fourth cycle in August 2019. By cycle #4, his bone pain had improved dramatically and continues to improve. Following four cycles of carboplatin and etoposide, it was elected to begin atezolizumab. He tolerated the first dose of atezolizumab without complication and received a second dose on October 03, 2019. He returns at this time for a third dose of maintenance therapy using tecentriq and reports no new symptoms. Pain is now rated at 3/10 in intensity, a decrease from prior report, with his pains primarily in the low back, ankles, shoulders, and knees at this time. He reports that he continues to use cigarettes. He anticipates delivery of home oxygen later today. ALLERGIES: The patient has no known medication allergies. CURRENT MEDICATIONS: - allopurinol 100 mg by mouth every day - aspirin 81 mg by mouth every day - citalopram 40 mg by mouth every day - Zofran 8 mg by mouth every 8 hours as needed nausea - pravastatin 40 mg by mouth each evening - pregabalin 50 mg by mouth twice a day - Compazine 10 mg by mouth every 8 hours as needed nausea - morphine sulfate extended release 30 mg by mouth twice a day PAST MEDICAL HISTORY, SOCIAL HISTORY, AND FAMILY HISTORY: The patient's past medical, social, and family history are as documented in medical oncology notes of July 23, 2019. REVIEW OF SYSTEMS: Neurologic: No history of head trauma. No history of seizures. The patient underwent MRI scans in the year 2004 to evaluate impaired memory with no evidence of malignancy at that time. No seizure history. No tremor. No focal neurologic deficits. Respiratory: The patient has small cell carcinoma of the lung. Recent pulmonary function tests documented obstructive pulmonary disease. The patient previously had a nonproductive cough, which is now resolved. Pain in the right ribcage has improved. No recent hemoptysis. The patient does have exertional dyspnea. 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 No orthopnea. No paroxysmal nocturnal dyspnea. The patient is unable to walk significant distances due to claudications in the legs. Gastrointestinal: No recent nausea, vomiting, abdominal pain, or diarrhea. Endocrine: No history of diabetes. No intolerance of heat or cold. No polyuria. No polydipsia. No polyphagia. Genitourinary: No history of nephrolithiases. No hematuria. No dysuria. Constitutional: No recent fevers, chills, or sweats. Musculoskeletal: The patient has left shoulder pain which is improved, but low back pain and joint pain continue, although rated 3/10 in intensity as noted. The remainder of the review of systems was obtained and was negative. PHYSICAL EXAMINATION: The patient is a well-developed, well-nourished gentleman awake, alert, and fully oriented, in no acute distress. Temperature 97.4, pulse 71, respirations 18, blood pressure 122/79, oxygen saturation 93% on room air. Skin: Full turgor, anicteric, and without rash. HEENT examination: Normocephalic, atraumatic. Pupils equal, round, reactive to light and accommodate. Extraocular muscles intact. Sclerae anicteric. Oropharynx without lesions. Dentures in place. Neck: Supple without thyromegaly. Lymphatics: No pathologic lymphadenopathy noted. Lungs: Clear to auscultation on the left with occasional rhonchi at the right base. Breath sounds are audible throughout the right lung. The chest is hyperresonant. No rales appreciated. Cardiac exam: Regular rhythm. Point of maximal impulse nondisplaced. S1, S2, without gallop, rub, nor murmur. Abdomen: Active bowel sounds, soft, nontender without appreciable organomegaly. No guarding or rebound elicited. No other masses present. Rectal examination: Deferred. Extremities: Without cyanosis or edema, but there is clubbing present. Neurological examination: Mental status intact. Cranial nerves intact. Motor and sensory grossly intact. LABORATORY DATA: Laboratory studies dated October 24, 2019, include the following: White blood count 7900 per mcL, hemoglobin 15.3 g/dL, hematocrit 45.7%, platelet count 123,000, BUN 16, creatinine 0.92 mg/dL, calcium 8.8 mg/dL, total bilirubin 0.2 mg/dL, albumin 3.6 g/dL, CEA 6.7 ng/mL decreased from 8.4 ng/mL on October 03, 2019. IMPRESSION: Small cell carcinoma of the lung, extensive stage disease, with extensive bone metastases. The patient has had a formal partial response to induction therapy using etoposide and carboplatin. He is now receiving single-agent atezolizumab as immunotherapy maintenance. CEA level has now declined somewhat. The patient will be restaged formally by CT scan and bone scan within the next month. PLAN: Mr. Stoner had hydromorphone prescription renewed at this time. He is cleared to proceed with atezolizumab at this time, and he will be scheduled for CT scans of the chest, as well as bone scan. The patient concurred with this plan. He will return for reevaluation in 3 weeks or sooner if needed. Electronically Signed by Cruzito Martini MD 10/31/2019 03:26 P DD: Cruzito Martini MD 10/24/2019 02:39 P DT: aml 10/28/2019 08:49 A CC: Niles Solis MD
[2019-11-14 10:05] LABS: BASO % 0.1 % (0.0-1.0); EOS # 0.1 10^3/uL (0.0-0.5); EOS % 1.9 % (0.0-3.0); HEMATOCRIT 48.4 % (42.0-52.0); LYMPH # 2.3 10^3/uL (1.5-5.0); LYMPH % 32.5 % (24.0-44.0); MEAN CORPUSCULAR HEMOGLOBIN 32.5 pg (27.0-33.0); MEAN CORPUSCULAR HGB CONC 33.1 g/dl (32.0-36.5); MEAN CORPUSCULAR VOLUME 98.2 fl (80.0-96.0); MONO # 0.5 10^3/uL (0.0-0.8); MONO % 7.3 % (0.0-5.0); NEUTROPHILS % 57.6 % (36.0-66.0); PLATELET COUNT, AUTOMATED 119 10^3/uL (150-450); RED BLOOD COUNT 4.93 10^6/uL (4.30-6.10)
[2019-11-14 10:39] LABS: ALBUMIN 3.4 GM/DL (3.2-5.2); ALT/SGPT 18 U/L (12-78); BILIRUBIN,TOTAL 0.3 MG/DL (0.2-1.0); BLOOD UREA NITROGEN 15 MG/DL (7-18); CALCIUM LEVEL 8.9 MG/DL (8.8-10.2); CARBON DIOXIDE LEVEL 28 MEQ/L (21-32); CHLORIDE LEVEL 107 MEQ/L (98-107); CREATININE FOR GFR 0.82 MG/DL (0.70-1.30); GLOMERULAR FILTRATION RATE > 60.0 (>42); GLUCOSE, FASTING 105 MG/DL (70-100); POTASSIUM SERUM 3.8 MEQ/L (3.5-5.1); SODIUM LEVEL 138 MEQ/L (136-145); TOTAL PROTEIN 6.9 GM/DL (6.4-8.2)
[2019-11-14 10:41] VITALS: BP 120/84
--- NOTE | 2019-11-14 11:46 | ONC.PHACK ---
CHEMO ADMIN CHECKLIST Order Contains Pt ID: Name, Order on Chemo Order Form?: Yes Order Form Includes ALL: Correct Tx Day, Correct Date, Correct Cycle Number Pt ID on Order form Matches: Pt ID on PHA Label Med on Chemo OrderForm Matches: PHA Label, Med Used for Preparation [facility] Nov 14, 2019 11:46
--- NOTE | 2019-11-15 08:45 | MEDONC ---
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 He reports "my pain hasn't changed since I saw you earlier this month. It is still a 3 out of 10 as long as I take the Dilaudid." HISTORY OF PRESENT ILLNESS: Kwaku Stoner is a 69-year-old gentleman with long history of heavy tobacco use which continues at this time. His tobacco use has been complicated by both atherosclerotic vascular disease and more recently by a diagnosis of extensive stage small cell carcinoma of the lung. His history of present illness dates to 2018, when he developed generalized, rapidly progressive bone pain particularly in the left shoulder as well as pain in the right leg and low back. He underwent multiple diagnostic imaging studies with varying interpretations of the findings initially. However, a radio nuclei bone scan performed May 30, 2019 reported findings consistent with metastatic disease. Those findings included intense uptake consistent with metastases in the right iliac bone adjacent to the sacroiliac joints, a focus of disease in the right femur, pathologic uptake in the T12 vertebral body, in L3, in L10 and in L11, as well as suspicious lesions in multiple ribs and the left scapula. Due to these findings, he was directed to the emergency department at [facility] on June 09, 2019. CT scan of the chest on that date documented a right hilar and mediastinal mass with extension into the adjacent right upper lobe of the lung. The mass measured approximately 6.3 cm x 7.2 cm with adjacent enlarged lymph nodes superior to the mass. Note was also made of scattered atherosclerotic calcifications of the thoracic aorta with compression of the superior vena cava and encasement of the right upper lobe pulmonary artery by tumor. A fracture was noted in the lateral aspect of the right 8th rib. Mr. Stoner was hospitalized and narcotic analgesics were initiated for control of pain. CT scan of the abdomen showed an infrarenal abdominal aortic aneurysm. The patient underwent tissue sampling on June 10, 2019 (specimen [id number]) with findings of small cell carcinoma lung. Mr. Stoner began systemic chemotherapy using carboplatin at AUC of 6 on day 1 and etoposide 100 mg/m2 daily on days 1-3 of each cycle with cycle #1 beginning on June 11, 2019. A second cycle of treatment began on July 02, 2019, and a third cycle began on July 23, 2019. A fourth cycle began on August 18, 2019. The patient experienced significant reduction in pain following each of the cycles of myelosuppressive antineoplastic therapy. A chest radiogram early in his course documented a rapid and significant favorable response to treatment with shrinkage of the tumor. Following four cycles of carboplatinum and etoposide the patient elected to begin atezolizumab single-agent maintenance immunotherapy. He has tolerated this well to date and returns at this time reporting that his pain is now rated at 3/10 in intensity, located primarily in the low back. He continues to smoke cigarettes and now has home oxygen. His overall performance status is estimated at 50-60% limited by claudications in the legs and exertional dyspnea. ALLERGIES: The patient has NO KNOWN MEDICATION ALLERGIES. CURRENT MEDICATIONS: - allopurinol 100 mg p.o. daily - aspirin 81 mg p.o. q. day - citalopram 40 mg p.o. q. day - Zofran 8 mg p.o. q.4 h p.r.n. nausea - pravastatin 40 mg p.o. q.p.m. - pregabalin 50 mg p.o. b.i.d. - Compazine 10 mg p.o. q.8 h p.r.n. - morphine sulfate extended release 30 mg p.o. b.i.d. - Dilaudid 4 mg p.o. q.4 h p.r.n. pain. PAST MEDICAL HISTORY, FAMILY HISTORY AND SOCIAL HISTORY: The patient's past medical, social and family history are as documented in medical oncology notes of July 23, 2019. REVIEW OF SYSTEMS: Neurologic: No history of head trauma. No history of seizures. The patient underwent MRI scans in the year 2004 to evaluate impaired memory with no evidence of malignancy at that time. No tremor. No focal neurologic deficits. Respiratory: The patient has small cell carcinoma of the lung and recent pulmonary function test document obstructive pulmonary disease consistent with emphysema. The patient previously had a nonproductive cough which has now resolved. Pain in the right ribcage has improved. No hemoptysis. The patient does have exertional dyspnea. 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 No orthopnea. No paroxysmal nocturnal dyspnea. The patient is unable to walk significant distances due to claudications in the legs. Gastrointestinal: No recent nausea, vomiting, abdominal pain or diarrhea. Endocrine: No history of diabetes. No intolerance of heat or cold. No polyuria. No polydipsia. No polyphagia. Genitourinary: No history of nephrolithiases. No hematuria. No dysuria. Constitutional: No recent fevers, chills or sweats. Musculoskeletal: The patient has left shoulder pain, which has improved, but he continues to have low back pain and joint pain rated 3/10 in intensity. The remainder of the review of systems was obtained and was negative. PHYSICAL EXAMINATION: The patient is a well-developed, well-nourished gentleman awake, alert and fully oriented, in no distress. Temperature 97.3, pulse 68, respirations 18, blood pressure 120/84, oxygen saturation 93% on room air. Skin: Full turgor, anicteric and without rash. HEENT Examination: Normocephalic , atraumatic. Pupils equal, round, reactive to light and accommodate. Extraocular muscles intact. Sclerae anicteric. Oropharynx without lesions. Dentures in place. Neck: Supple without thyromegaly. Lymphatics: No pathologic lymphadenopathy noted. Lungs: Clear to auscultation on the left with occasional rhonchi at the right base. Breath sounds are audible throughout the right lung. The chest is hyperresonant. No rales appreciated. Cardiac Exam: Regular rhythm, point of maximal impulse nondisplaced. S1, S2, without gallop, rub or murmur. Abdomen: Active bowel sounds, soft, nontender without appreciable organomegaly. No guarding or rebound elicited. No other masses noted. Rectal Examination: Deferred. Extremities: Without cyanosis or edema but there is clubbing present. Neurologic Exam: Mental status intact. Cranial nerves intact. Motor and sensory grossly intact. LABORATORY DATA: Laboratory studies dated November 14, 2019 include white blood count 7000 per microliter, hemoglobin 16 gram per decaliter, hematocrit 48.8%, platelet count 119,000. BUN 15, creatinine 0.82 mg per decaliter, glucose 105 mg per decaliter, calcium 8.9 mg per decaliter, albumin 3.4 gram per decaliter, total bilirubin 0.3 mg per decaliter. CEA 7.1 nanogram per mL, decreased from 8.4 nanogram per mL on October 03, 2019. IMPRESSION: Small cell carcinoma of the lung, extensive stage disease with extensive bone metastases. The patient has achieved a formal partial response to induction therapy using etoposide and carboplatinum and is now on single-agent atezolizumab as immunotherapy maintenance. CEA continues to decline somewhat. The patient elects to defer restaging CT scan and bone scan at this time due to the COVID-19 epidemic and this is reasonable given that he is over 60 years of age and has pulmonary disease which places him at extremely high risk for potentially fatal complications of coronavirus infection. PLAN: Mr. Stoner is cleared to proceed with atezolizumab therapy at this time and will return for reevaluation in 3 weeks, or sooner if the need arises. Restaging CT scan and bone scan will be deferred for the present. Electronically Signed by Cruzito Martini MD 11/15/2019 10:34 A DD: Cruzito Martini MD 11/14/2019 04:07 P DT: hue 11/15/2019 08:26 A CC: Niles Solis MD
[2019-12-05 09:58] VITALS: BP_SYST 123; BP_SYST 174; BP_DIAS 100; BP_DIAS 80
[2019-12-05 10:07] LABS: BASO % 0.1 % (0.0-1.0); EOS # 0.1 10^3/uL (0.0-0.5); EOS % 1.2 % (0.0-3.0); HEMATOCRIT 49.4 % (42.0-52.0); HEMOGLOBIN 16.7 g/dl (13.5-17.5); LYMPH # 2.5 10^3/uL (1.5-5.0); LYMPH % 29.3 % (24.0-44.0); MEAN CORPUSCULAR HEMOGLOBIN 32.6 pg (27.0-33.0); MEAN CORPUSCULAR HGB CONC 33.8 g/dl (32.0-36.5); MEAN CORPUSCULAR VOLUME 96.3 fl (80.0-96.0); MONO # 0.7 10^3/uL (0.0-0.8); MONO % 7.9 % (0.0-5.0); NEUTROPHILS # 5.3 10^3/uL (1.5-8.5); PLATELET COUNT, AUTOMATED 143 10^3/uL (150-450); RED BLOOD COUNT 5.13 10^6/uL (4.30-6.10); WHITE BLOOD COUNT 8.6 10^3/uL (4.0-10.0)
[2019-12-05 10:35] LABS: ALBUMIN 3.6 GM/DL (3.2-5.2); ALT/SGPT 19 U/L (12-78); BILIRUBIN,TOTAL 0.5 MG/DL (0.2-1.0); BLOOD UREA NITROGEN 13 MG/DL (7-18); CALCIUM LEVEL 9.3 MG/DL (8.8-10.2); CARBON DIOXIDE LEVEL 27 MEQ/L (21-32); CHLORIDE LEVEL 107 MEQ/L (98-107); CREATININE FOR GFR 0.84 MG/DL (0.70-1.30); GLOMERULAR FILTRATION RATE > 60.0 (>42); GLUCOSE, FASTING 105 MG/DL (70-100); POTASSIUM SERUM 3.9 MEQ/L (3.5-5.1); SODIUM LEVEL 139 MEQ/L (136-145); TOTAL PROTEIN 7.3 GM/DL (6.4-8.2)
--- NOTE | 2019-12-05 10:50 | ONC.PHACK ---
CHEMO ADMIN CHECKLIST Order Contains Pt ID: Name, Order on Chemo Order Form?: Yes Order Form Includes ALL: Correct Tx Day, Correct Date, Correct Cycle Number Pt ID on Order form Matches: Pt ID on PHA Label Med on Chemo OrderForm Matches: PHA Label, Med Used for Preparation [facility] Dec 05, 2019 10:50
--- NOTE | 2019-12-05 15:09 | MEDONCPDOC ---
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 He has a long history of heavy tobacco use which continues at this time. His tobacco use has been complicated by both atherosclerotic vascular disease and more recently by a diagnosis of extensive stage small cell carcinoma of the lung. His history of present illness dates to 2018, when he developed generalized, rapidly progressive bone pain particularly in the left shoulder as well as pain in the right leg and low back. He underwent multiple diagnostic imaging studies with varying interpretations of the findings initially. However, a radio nuclei bone scan performed May 30, 2019 reported findings consistent with metastatic disease. Those findings included intense uptake consistent with metastases in the right iliac bone adjacent to the sacroiliac joints, a focus of disease in the right femur, pathologic uptake in the T12 vertebral body, in L3, in L10 and in L11, as well as suspicious lesions in multiple ribs and the left scapula. Due to these findings, he was directed to the emergency department at [facility] er on June 09, 2019. CT scan of the chest on that date documented a right hilar and mediastinal mass with extension into the adjacent right upper lobe of the lung. The mass measured approximately 6.3 cm x 7.2 cm with adjacent enlarged lymph nodes superior to the mass. Note was also made of scattered atherosclerotic calcifications of the thoracic aorta with compression of the superior vena cava and encasement of the right upper lobe pulmonary artery by tumor. A fracture was noted in the lateral aspect of the right 8th rib. Mr. Stoner was hospitalized and narcotic analgesics were initiated for control of pain. CT scan of the abdomen showed an infrarenal abdominal aortic aneurysm. The patient underwent tissue sampling on June 10, 2019 (specimen [id number]) with findings of small cell carcinoma lung. Mr. Stoner began systemic chemotherapy using carboplatin at AUC of 6 on day 1 and etoposide 100 mg/m2 daily on days 1-3 of each cycle with cycle #1 beginning on June 11, 2019. A second cycle of treatment began on July 02, 2019, and a third cycle began on July 23, 2019. A fourth cycle began on August 18, 2019. The patient experienced significant reduction in pain following each of the cycles of myelosuppressive antineoplastic therapy. A chest radiogram early in his course documented a rapid and significant favorable response to treatment with shrinkage of the tumor. Following four cycles of carboplatinum and etoposide the patient elected to begin atezolizumab single-agent maintenance immunotherapy. Interval History Mr. Stoner is a pleasant 69-year-old male who presents today for follow-up with regards to his extensive stage small cell lung cancer. He is due to receive maintenance Tecentriq today. The case is reviewed with his via telephone. The patient notes that he is doing well since he was last seen. He continues to tolerate his immunotherapy well. He does continue to have pain with an intensity of 3/10 and is requesting a refill on his glottic. He denies increasing cough and shortness of breath. He does feel tired and fatigued. He was started recently on vitamin C supplementation by his primary care provider due to his fatigue. He denies nausea, vomiting, abdominal pain, fevers, and chills. He has had no change in his appetite. Allergies Coded Allergies: No Known Allergies (Unverified , 06/09/19) Home Medications Active Scripts Hydromorphone HCl (Hydromorphone HCl) 4 Mg Tablet, 1-2 TAB PO Q6HP PRN for pain MDD 8 for 15 Days, #120 TAB Take 1 to 2 tablets po q 6 hours prn pain, max of 8 per day Prov:SCOTTY CARRION MD 12/05/19 Allopurinol (Allopurinol) 100 Mg Tablet, 100 MG PO DAILY for 30 Days, #30 TAB Prov:ELIAZAR MARTINEZ MD 11/14/19 Prochlorperazine Maleate (Prochlorperazine Maleate) 10 Mg Tablet, 10 MG PO Q8HP PRN for NAUSEA OR VOMITING, #30 TAB 3 Refills Prov:Jeremiah Blackwell MD 06/11/19 Ondansetron HCl (Ondansetron HCl) 8 Mg Tablet, 8 MG PO Q6H PRN for NAUSEA OR VOMITING, #30 TAB 3 Refills Prov:Jeremiah Blackwell MD 06/11/19 Reported Medications Ascorbic Acid/Multivit-Min (Emergen-C 1,000 mg Packet) 1,000 Mg Effpowdpkt, 1 LEOLA PO DAILY 4/17/20 Acetaminophen (Acetaminophen) 500 Mg Tablet, 1000 MG PO Q8H PRN for PAIN 06/09/19 Aspirin (Aspirin EC) 81 Mg Tablet.dr, 81 MG PO DAILY 06/09/19 Topiramate (Topiramate) 50 Mg Tablet, 50 MG PO QHS, TAB 06/09/19 Pravastatin Sodium (Pravastatin Sodium) 40 Mg Tablet, 40 MG PO QPM WITH EVENING MEAL 06/09/19 Citalopram Hydrobromide (Citalopram HBr) 40 Mg Tablet, 40 MG PO DAILY 06/09/19 Tamsulosin Hcl (Tamsulosin HCl) 0.4 Mg Capsule, 0.4 MG PO DAILY 06/09/19 Review of Systems General: Reports: Fatigue, Normal Appetite; Denies: Chills, Night Sweats, Malaise Constitutional: Reports: Fatigue, Normal appetite; Denies: Chills, Fever, Malaise, Night Sweats, Weakness, Weight Loss, Lethargy Eyes: Denies: Pain, Vision change HEENT: Denies: Head Aches, Dysphagia, Sore Throat, Epistaxis Skin: Denies: Rash, Lesions, Jaundice, Bruising Pulmonary: Denies: Dyspnea, Cough Cardiovascular: Denies: Chest Pain, Palpitations, Orthopnea, Edema Gastrointestinal: Denies: Nausea, Vomiting, Abdominal Pain, Diarrhea Genitourinary: Denies: Dysuria, Frequency, Incontinence Hematologic: Denies: Bruising, Petecchia Musculoskeletal: Denies: Back pain Neurological: Reports: Weakness, Numbness; Denies: Change in Speech Psych: Reports: Mood Normal Physical Examination General Exam: Positive: Alert, Cooperative, No Acute Distress, Oriented Times Three Eye Exam: Positive: PERRLA, Conjunctiva & lids normal; Negative: Sclera icteric ENT EXAM: Positive: Atraumatic Neck Exam: Reports: Supple; Denies: Lymphadenopathy Chest Exam: Positive: Clear to auscultation, Normal air movement; Negative: Rales, Rhonchi, Wheezing Heart Exam: Positive: Rate Normal, Regular Rhythm Abdomen Exam: Positive: Normal bowel sounds; Negative: Tenderness Extremity Exam: Positive: Edema (1+ bilateral lower extremity edema); Negative: Clubbing, Cyanosis Skin Exam: Positive: Nl turgor and temperature; Negative: Rash, Breakdown, Lesion Neuro Exam: Positive: Normal Speech, Normal Tone Psych Exam: Positive: Mental status NL, Mood NL, Oriented x 3 Ht / Wt Ht / Wt Height:5 Feet 8.5 Inches Weight: 88.300 Kg Vital Signs Vital Signs Date Time Temp Pulse Resp B/P (MAP) Pulse Ox O2 Delivery O2 Flow Rate FiO2 12/05/19 09:58 98.9 88 18 123/80 (94) 93 Room Air Laboratory Data Item Value Date Time Carcinoembryonic Antigen 7.2 NG/ML H 12/05/19 0953 Carcinoembryonic Antigen 7.1 NG/ML H 11/14/19 0945 Carcinoembryonic Antigen 6.7 NG/ML H 10/24/19 0956 Laboratory Tests Test 12/05/19 09:53 Blood Urea Nitrogen 13 MG/DL (7-18) Creatinine 0.84 MG/DL (0.70-1.30) Glomerular Filtration Rate > 60.0 (>42) Fasting Glucose 105 MG/DL (70-100) H Calcium Level 9.3 MG/DL (8.8-10.2) Total Bilirubin 0.5 MG/DL (0.2-1.0) Aspartate Amino Transf (AST/SGOT) 15 U/L (7-37) Alanine Aminotransferase (ALT/SGPT) 19 U/L (12-78) Total Protein 7.3 GM/DL (6.4-8.2) Sodium Level 139 MEQ/L (136-145) Albumin 3.6 GM/DL (3.2-5.2) Alkaline Phosphatase 95 U/L (45-117) Potassium Level 3.9 MEQ/L (3.5-5.1) Chloride Level 107 MEQ/L (98-107) Carbon Dioxide Level 27 MEQ/L (21-32) Anion Gap 5 MEQ/L (8-16) L Carcinoembryonic Antigen 7.2 NG/ML (<2.5) H Laboratory Tests 12/05/19 09:53 Assessment/Plan 1. Extensive stage small cell lung cancer: The patient presents today for maintenance Tecentriq. Is tolerating treatment well overall. Laboratory data was reviewed with the patient and is sufficient to continue on with treatment. He will proceed with therapy today. CEA level was reviewed with the patient is stable. We will continue to defer restaging CT imaging and bone scan at this time due to the COVID19 pandemic. 2. Pain secondary to malignancy: We will refill the patient's Dilaudid today. He knows to contact us if his pain worsens. 3. Fatigue: We did discuss that immunotherapy can lead to thyroid dysfunction or adrenal insufficiency. We will check thyroid studies and a cortisol level when he returns. FOLLOWUP: 3 weeks All of the above was relayed to the patient who was given an opportunity to ask questions that were answered to satisfaction. The patient voiced an understanding and agreed to proceed. I spent [45] minutes during this visit seeing the patient [id number] and reviewing records. More than [50]% of the time was spent in direct [id number] discussion and counseling of the patient. CC TO: Primary Care Provider: Niles Solis MD Referring Provider: SCOTTY CARRION MD Dec 05, 2019 15:09
[2019-12-26 08:52] VITALS: BP 117/78
[2019-12-26 09:04] LABS: BASO % 0.3 % (0.0-1.0); EOS # 0.1 10^3/uL (0.0-0.5); EOS % 1.2 % (0.0-3.0); HEMATOCRIT 50.7 % (42.0-52.0); HEMOGLOBIN 17.2 g/dl (13.5-17.5); LYMPH # 3.1 10^3/uL (1.5-5.0); LYMPH % 27.7 % (24.0-44.0); MEAN CORPUSCULAR HEMOGLOBIN 32.3 pg (27.0-33.0); MEAN CORPUSCULAR HGB CONC 33.9 g/dl (32.0-36.5); MEAN CORPUSCULAR VOLUME 95.3 fl (80.0-96.0); MONO # 0.9 10^3/uL (0.0-0.8); MONO % 7.6 % (0.0-5.0); NEUTROPHILS % 62.2 % (36.0-66.0); PLATELET COUNT, AUTOMATED 117 10^3/uL (150-450); RED BLOOD COUNT 5.32 10^6/uL (4.30-6.10); WHITE BLOOD COUNT 11.2 10^3/uL (4.0-10.0)
[2019-12-26 09:30] LABS: ALBUMIN 3.5 GM/DL (3.2-5.2); ALT/SGPT 77 U/L (12-78); BILIRUBIN,TOTAL 0.4 MG/DL (0.2-1.0); BLOOD UREA NITROGEN 20 MG/DL (7-18); CALCIUM LEVEL 8.9 MG/DL (8.8-10.2); CARBON DIOXIDE LEVEL 28 MEQ/L (21-32); CHLORIDE LEVEL 108 MEQ/L (98-107); CREATININE FOR GFR 0.73 MG/DL (0.70-1.30); GLOMERULAR FILTRATION RATE > 60.0 (>42); GLUCOSE, FASTING 104 MG/DL (70-100); POTASSIUM SERUM 3.6 MEQ/L (3.5-5.1); SODIUM LEVEL 141 MEQ/L (136-145)
[2019-12-26 09:36] LABS: FREE T4 1.44 NG/DL (0.76-1.46); THYROID STIMULATING HORMONE 1.29 uIU/ML (0.358-3.740)
--- NOTE | 2019-12-26 09:46 | ONC.PHACK ---
CHEMO ADMIN CHECKLIST Order Contains Pt ID: Name, Order on Chemo Order Form?: Yes Order Form Includes ALL: Correct Tx Day, Correct Date, Correct Cycle Number Pt ID on Order form Matches: Pt ID on PHA Label Med on Chemo OrderForm Matches: PHA Label, Med Used for Preparation [facility] December 26, 2019 09:46
--- NOTE | 2019-12-29 15:14 | MEDONC ---
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 He reports "since I had the stroke in the hospital I have had more episodes when my tongue wiggles involuntarily and my right face spasms; Dr. Solis saw me at [facility] last weekend. They changed my aspirin dose." HISTORY OF PRESENT ILLNESS: Kwaku Stoner is a 69-year-old gentleman with a long history of heavy tobacco use, which continues at this time. His tobacco use has been complicated by both atherosclerotic vascular disease and more recently by a diagnosis of extensive stage small cell carcinoma of the lung. His history of present illness dates to 2018, when he developed generalized, rapidly progressive bone pain, particularly in the left shoulder, as well as pain in the right leg and the low back. He underwent multiple diagnostic imaging studies with varying interpretations of the findings initially. However, a radio nucleide bone scan performed May 30, 2019 reported findings consistent with metastatic disease. These findings included intense uptake consistent with metastases in the right iliac bone adjacent to the sacroiliac joints, a focus of disease in the right femur, pathologic uptake in the T12 vertebral body, in L3, in L10, and in L11, as well as suspicious lesions in multiple ribs and the left scapula. Due to these findings, he was directed to the emergency department at on June 09, 2019. CT scan of the chest on that date documented a right hilar and mediastinal mass, with extension into the adjacent right upper lobe of the lung. The mass measured approximately 6.3 cm x 7.2 cm with adjacent enlarged lymph nodes superior to the mass. Note was also made of scattered atherosclerotic calcifications of the thoracic aorta, with compression of the superior vena cava and encasement of the right upper lobe pulmonary artery by tumor. A fracture was noted in the lateral aspect of the right 8th rib. Mr. Stoner was hospitalized and narcotic analgesics were initiated for control of pain. CT scan of the abdomen showed an infrarenal abdominal aortic aneurysm. Tissue sampling of the lung mass on June 10, 2019 (specimen number [id number]) documented small cell carcinoma of the lung. Mr. Stoner began systemic chemotherapy using carboplatin at AUC of 6 on day 1 and etoposide 100 mg/m2 daily on days 1-3 of each cycle with cycle #1 beginning on June 11, 2019. A second cycle of treatment began July 02, 2019, and a third first cycle began July 23, 2019. The fourth cycle began on August 18, 2019. Mr. Stoner experienced a significant reduction in pain following each of the cycles of myelosuppressive antineoplastic therapy. A chest radiogram early in his treatment course documented rapid and significant favorable response to treatment with shrinkage of the tumor. Following four cycles of carboplatinum and etoposide, the patient elected to begin maintenance single-agent atezolizumab immunotherapy. He has tolerated this well to date. Pain continues, however is rated only at 3/10 in intensity, located primarily in the low back. He continues to smoke cigarettes and now has home oxygen. On December 16, 2018, Mr. Stoner developed right facial weakness and dysarthria. He presented to the emergency department at where CT scan of the brain reported findings consistent with an acute nonhemorrhagic cerebrovascular accident in the right frontoparietal watershed distribution, in the deep white matter. The region of decreased density measured 2-3 cm. The patient was placed on aspirin and clinically improved. CT angiogram was performed on December 18, 2019. This showed atherosclerosis of the posterior cerebral artery on the left. Calcification was noted in the distal internal carotid arteries bilaterally. The patient was felt to have had a thromboembolic stroke from atherosclerotic vascular disease. He was subsequently discharged on December 18, 2019. Since that time, he has had several episodes of recurrent fasciculation of the tongue and was evaluated by his primary care physician, Dr. Solis, at [facility] recently. Recurrent episodes have lasted only for a few minutes, and the patient has had no recurrence for the past several days. He is scheduled to be evaluated by a neurologist using telemedicine within the next week. The patient has a Karnofsky performance status estimated overall at 60%, with activities limited by claudication of the legs and exertional dyspnea. ALLERGIES: The patient has NO KNOWN MEDICATION ALLERGIES. CURRENT MEDICATIONS: - allopurinol 100 mg po q. day - aspirin 162 mg p.o. q. day - citalopram 40 mg p.o. q. day - Zofran 8 mg p.o. q.4 h p.r.n. nausea - pravastatin 40 mg p.o. q.p.m. - pregabalin 50 mg p.o. b.i.d. - morphine sulfate extended release 30 mg p.o. b.i.d. - Dilaudid 4 mg p.o. q.4 h p.r.n. pain PAST MEDICAL HISTORY, FAMILY HISTORY AND SOCIAL HISTORY: The patient's past medical, social and family history are as documented in medical oncology office notes of July 23, 2019. REVIEW OF SYSTEMS: No history of head trauma. 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 No tremor. No other focal neurologic deficits. Respiratory: The patient has small cell carcinoma of the lung with chronic obstructive pulmonary disease consistent with emphysema. A prior nonproductive cough. No hemoptysis. The patient does have exertional dyspnea. 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 No orthopnea. No paroxysmal nocturnal dyspnea. The patient is unable to walk significant distances due to claudications in the legs where he has documented peripheral vascular disease. Gastrointestinal: No recent nausea, vomiting, abdominal pain or diarrhea. Endocrine: No history of diabetes. No intolerance of heat or cold. No polyuria. No polydipsia. No polyphagia. Genitourinary: No history of nephrolithiases. No hematuria. No dysuria. Constitutional: No recent fevers, chills or sweats. Musculoskeletal: The patient has left shoulder pain, which is improved with chemotherapy, but persists rated 3/10 in intensity. The remainder of the review of systems was obtained and was negative. PHYSICAL EXAMINATION: The patient is a well-developed, well-nourished gentleman awake, alert and fully oriented, in no distress. Temperature 98.1, pulse 81, respirations 18, blood pressure 117/78, oxygen saturation 95% on room air. Skin: Full turgor, anicteric, and without active rash. HEENT Examination: Normocephalic, atraumatic. Pupils equal, round, reactive to light and accommodate. Extraocular muscles intact. Sclerae anicteric. Oropharynx without lesions. Dentures in place. Neck: Supple without thyromegaly. Lymphatics: No pathologic lymphadenopathy noted. Lungs: Clear to auscultation on the left with occasional rhonchi on the right at the base. Breath sounds audible throughout the lung on the right with decreased breath sounds at the left upper lobe. Chest: Hyperresonant. No rales noted. Cardiac Exam: Regular rhythm, point of maximal impulse nondisplaced. S1, S2, without gallop, rub or murmur. Abdomen: Active bowel sounds, soft, nontender. Without appreciable organomegaly. No guarding or rebound elicited. No other masses noted. Rectal Examination: Deferred. Extremities: Without cyanosis or edema but there is clubbing present. Neurologic Exam: Mental status intact. Cranial nerves intact. Motor and sensory grossly intact. LABORATORY DATA: Laboratory studies dated December 26, 2019 include the following white blood count 11,200 per microliter, hemoglobin 17.2 gram per decaliter, hematocrit 50.7%, platelet count 117,000. BUN 20, creatinine 0.73 mg per decaliter, glucose 104 mg per decaliter, calcium 8.9 mg per decaliter, total bilirubin 0.4 mg per decaliter, albumin 3.5 gram per decaliter. CEA 8.3 nanogram per mL, previously 8.4 nanogram per mL on October 03, 2019. IMPRESSION: 1. Small cell carcinoma of the lung, extensive stage disease. The patient achieved a formal partial response to induction therapy using etoposide and carboplatinum and is now on single-agent atezolizumab immunotherapy maintenance. CEA has been stable in recent months, indicating that the patient's disease is stable although still active. He will continue atezolizumab at this time. 2. Cerebrovascular disease. The patient presented with a stroke syndrome, initially worrisome for metastatic disease from the lung involving the brain. However, imaging studies are consistent with ischemic infarct due to atherosclerosis. The patient has extensive atherosclerotic vascular disease involving the heart, the aortic, and the peripheral arteries, now clinically manifesting with neurovascular disease. 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 He may benefit from anti seizure medication but this will be deferred to the neurologist who will be evaluating him in the next week by telemedicine. PLAN: Mr. Stoner is cleared to proceed with atezolizumab maintenance immunotherapy. He was asked to return for reevaluation in 3 weeks, or sooner if the need arises. The patient concurred with this plan. Electronically Signed by Cruzito Martini MD 12/30/2019 09:46 A DD: Cruzito Martini MD 12/26/2019 01:13 P DT: hue 12/29/2019 02:47 P CC: Niles Solis MD
[2020-01-16 09:10] LABS: BASO % 0.2 % (0.0-1.0); EOS # 0.2 10^3/uL (0.0-0.5); EOS % 3.2 % (0.0-3.0); HEMATOCRIT 48.8 % (42.0-52.0); HEMOGLOBIN 16.1 g/dl (13.5-17.5); LYMPH # 0.9 10^3/uL (1.5-5.0); LYMPH % 19.5 % (24.0-44.0); MEAN CORPUSCULAR HEMOGLOBIN 31.1 pg (27.0-33.0); MEAN CORPUSCULAR VOLUME 94.2 fl (80.0-96.0); MONO # 0.4 10^3/uL (0.0-0.8); MONO % 8.9 % (0.0-5.0); NEUTROPHILS # 3.2 10^3/uL (1.5-8.5); NEUTROPHILS % 67.6 % (36.0-66.0); RED BLOOD COUNT 5.18 10^6/uL (4.30-6.10); WHITE BLOOD COUNT 4.7 10^3/uL (4.0-10.0)
[2020-01-16 09:13] VITALS: BP 143/85
[2020-01-16 09:28] LABS: PLATELET COUNT, AUTOMATED 84 10^3/uL (150-450)
[2020-01-16 09:43] LABS: ALBUMIN 3.4 GM/DL (3.2-5.2); ALT/SGPT 40 U/L (12-78); BILIRUBIN,TOTAL 0.3 MG/DL (0.2-1.0); BLOOD UREA NITROGEN 14 MG/DL (7-18); CALCIUM LEVEL 8.7 MG/DL (8.8-10.2); CARBON DIOXIDE LEVEL 29 MEQ/L (21-32); CHLORIDE LEVEL 106 MEQ/L (98-107); CREATININE FOR GFR 0.82 MG/DL (0.70-1.30); GLOMERULAR FILTRATION RATE > 60.0 (>42); GLUCOSE, FASTING 124 MG/DL (70-100); POTASSIUM SERUM 3.9 MEQ/L (3.5-5.1); SODIUM LEVEL 141 MEQ/L (136-145); TOTAL PROTEIN 7.1 GM/DL (6.4-8.2)
--- NOTE | 2020-01-16 10:57 | ONC.PHACK ---
CHEMO ADMIN CHECKLIST Order Contains Pt ID: Name, Order on Chemo Order Form?: Yes Order Form Includes ALL: Correct Tx Day, Correct Date, Correct Cycle Number Pt ID on Order form Matches: Pt ID on PHA Label Med on Chemo OrderForm Matches: PHA Label, Med Used for Preparation [facility] January 16, 2020 10:57
--- NOTE | 2020-01-16 16:34 | MEDONCPDOC ---
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 He has a long history of heavy tobacco use which continues at this time. His tobacco use has been complicated by both atherosclerotic vascular disease and more recently by a diagnosis of extensive stage small cell carcinoma of the lung. His history of present illness dates to 2018, when he developed generalized, rapidly progressive bone pain particularly in the left shoulder as well as pain in the right leg and low back. He underwent multiple diagnostic imaging studies with varying interpretations of the findings initially. However, a radio nuclei bone scan performed May 30, 2019 reported findings consistent with metastatic disease. Those findings included intense uptake consistent with metastases in the right iliac bone adjacent to the sacroiliac joints, a focus of disease in the right femur, pathologic uptake in the T12 vertebral body, in L3, in L10 and in L11, as well as suspicious lesions in multiple ribs and the left scapula. Due to these findings, he was directed to the emergency department at [facility] er on June 09, 2019. CT scan of the chest on that date documented a right hilar and mediastinal mass with extension into the adjacent right upper lobe of the lung. The mass measured approximately 6.3 cm x 7.2 cm with adjacent enlarged lymph nodes superior to the mass. Note was also made of scattered atherosclerotic calcifications of the thoracic aorta with compression of the superior vena cava and encasement of the right upper lobe pulmonary artery by tumor. A fracture was noted in the lateral aspect of the right 8th rib. Mr. Stoner was hospitalized and narcotic analgesics were initiated for control of pain. CT scan of the abdomen showed an infrarenal abdominal aortic aneurysm. The patient underwent tissue sampling on June 10, 2019 (specimen [id number]) with findings of small cell carcinoma lung. Mr. Stoner began systemic chemotherapy using carboplatin at AUC of 6 on day 1 and etoposide 100 mg/m2 daily on days 1-3 of each cycle with cycle #1 beginning on June 11, 2019. A second cycle of treatment began on July 02, 2019, and a third cycle began on July 23, 2019. A fourth cycle began on August 18, 2019. The patient experienced significant reduction in pain following each of the cycles of myelosuppressive antineoplastic therapy. A chest radiogram early in his course documented a rapid and significant favorable response to treatment with shrinkage of the tumor. Following four cycles of carboplatinum and etoposide the patient elected to begin atezolizumab single-agent maintenance immunotherapy. Interval History The patient is currently getting Tecentriq. He is here for an infusion. He had a CT scan. The scan is showing improvement in his lung disease. There is suggestion of new lesions in his paravertebral, in the area of his chung nand in the left adrenal. He is short of breath. His weight is stable. He is tolerating Tecentriq. Allergies Coded Allergies: No Known Allergies (Unverified , 06/09/19) Home Medications Active Scripts Hydromorphone HCl (Hydromorphone HCl) 4 Mg Tablet, 1-2 TAB PO Q6HP PRN for pain MDD 8, #240 TAB Take 1 to 2 tablets po q 6 hours prn pain, max of 8 per day Prov:MAYTE YO MD 01/16/20 Reported Medications Phenytoin Sodium Extended (Phenytoin Sodium Extended) 100 Mg Capsule, 300 MG PO QHS, CAP 01/16/20 Levetiracetam (Keppra) 500 Mg Tablet, 500 MG PO, TAB 01/16/20 Aspirin (Ecotrin) 81 Mg Tablet.dr, 2 TAB PO DAILY for pain for 30 Days, #30 TAB 12/26/19 Allopurinol (Allopurinol) 100 Mg Tablet, 100 MG PO DAILY, TAB 12/17/19 Sennosides (Senna) 8.6 Mg Tablet, 2 TAB PO BID 12/17/19 Pravastatin Sodium (Pravastatin Sodium) 40 Mg Tablet, 40 MG PO QPM WITH EVENING MEAL 06/09/19 Tamsulosin Hcl (Tamsulosin HCl) 0.4 Mg Capsule, 0.4 MG PO DAILY 06/09/19 Discontinued Reported Medications Hydromorphone HCl (Hydromorphone HCl) 4 Mg Tablet, 8 MG PO Q6H PRN for PAIN, TAB 12/17/19 Review of Systems Constitutional: Reports: Fatigue, Lethargy Pulmonary: Reports: Dyspnea, Other Symptoms (uses oxygen ) Physical Examination General Exam: Positive: Alert, No Acute Distress Eye Exam: Positive: PERRLA, Conjunctiva & lids normal; Negative: Sclera icteric ENT EXAM: Positive: Atraumatic, Mucous membr. moist/pink Neck Exam: Reports: Supple; Denies: JVD, Thyromegaly, Lymphadenopathy Chest Exam: Positive: Clear to auscultation, Normal air movement Heart Exam: Positive: Rate Normal Abdomen Exam: Positive: Normal bowel sounds; Negative: Tenderness, Hepatospenomegaly, Mass Extremity Exam: Negative: Clubbing, Cyanosis, Edema Skin Exam: Positive: Nl turgor and temperature; Negative: Rash, Breakdown, Lesion Neuro Exam: Positive: Normal Speech, Normal Tone Psych Exam: Positive: Mental status NL Ht / Wt Ht / Wt Height:5 Feet 9 Inches Weight: 85.600 Kg Vital Signs Vital Signs Date Time Temp Pulse Resp B/P (MAP) Pulse Ox O2 Delivery O2 Flow Rate FiO2 01/16/20 09:13 98.9 86 18 143/85 (104) 94 Room Air Laboratory Data Laboratory Tests Test 01/16/20 08:58 Blood Urea Nitrogen 14 MG/DL (7-18) Creatinine 0.82 MG/DL (0.70-1.30) Glomerular Filtration Rate > 60.0 (>42) Fasting Glucose 124 MG/DL (70-100) H Calcium Level 8.7 MG/DL (8.8-10.2) L Total Bilirubin 0.3 MG/DL (0.2-1.0) Aspartate Amino Transf (AST/SGOT) 22 U/L (7-37) Alanine Aminotransferase (ALT/SGPT) 40 U/L (12-78) Total Protein 7.1 GM/DL (6.4-8.2) Sodium Level 141 MEQ/L (136-145) Albumin 3.4 GM/DL (3.2-5.2) Alkaline Phosphatase 130 U/L (45-117) H Potassium Level 3.9 MEQ/L (3.5-5.1) Chloride Level 106 MEQ/L (98-107) Carbon Dioxide Level 29 MEQ/L (21-32) Anion Gap 6 MEQ/L (8-16) L Laboratory Tests 01/16/20 08:58 Assessment/Plan 1. Extensive stage small cell lung cancer: The patient presents today for maintenance Tecentriq. Is tolerating treatment well overall. Laboratory data was reviewed with the patient and is sufficient to continue on with treatment. He will proceed with therapy today. CEA level was reviewed with the patient is stable. 2. Pain secondary to malignancy: We will refill the patient's Dilaudid today. He knows to contact us if his pain worsens. 3. Fatigue: We did discuss that immunotherapy can lead to thyroid dysfunction or adrenal insufficiency. We will check thyroid studies and a cortisol level when he returns. 4. CT scan showing a mixed picture. Improvement in the lung disease. Suggestion of progression outside of the lung . Plan; Continue with Tecentriq ordered for today. consider switching to another agent . FOLLOWUP: 3 weeks CC TO: Primary Care Provider: Niles Solis MD Referring Provider: MAYTE YO MD January 16, 2020 10:03
[~2020-02-06] VITALS: Ht 175.3 cm; Wt 83.3 kg
[~2020-02-06 09:24] MED LIST changes: +ATEZOLIZUMAB IV ONE; +CALC500T25 PO; +CARB1TAB20 PO; +CARBOPLATIN IV ONE; +ETOPOSIDE IV ONE; +FOSAPREPITANT PERIPHERAL LINE 30 MIN INFUSION (PREMIX) IV ONE; +FOSAPREPITANT PERIPHERAL LINE 30 MIN INFUSION IV ONE; +OVER IV ONE; +PALONOSETRON 250 MCG IV IV ONE; +PILL CUTTER 1 EACH XX PRN; +SODIUM CHLORIDE 0.9% INJ 10 ML SYR IV PRN; +dexameTHASONE 10 MG IV IV ONE
[2020-02-06] MEDS: SODIUM CHLORIDE 0.9% INJ 10 ML SYR IV PRN ×2 (09:40→12:07)
[2020-02-06 09:58] LABS: BASO % 0.4 % (0.0-1.0); EOS # 0.1 10^3/uL (0.0-0.5); EOS % 1.1 % (0.0-3.0); HEMATOCRIT 48.4 % (42.0-52.0); HEMOGLOBIN 16.1 g/dl (13.5-17.5); LYMPH # 1.8 10^3/uL (1.5-5.0); LYMPH % 23.2 % (24.0-44.0); MEAN CORPUSCULAR HEMOGLOBIN 31.4 pg (27.0-33.0); MEAN CORPUSCULAR HGB CONC 33.3 g/dl (32.0-36.5); MEAN CORPUSCULAR VOLUME 94.5 fl (80.0-96.0); MONO # 0.7 10^3/uL (0.0-0.8); NEUTROPHILS % 65.9 % (36.0-66.0); PLATELET COUNT, AUTOMATED 135 10^3/uL (150-450); RED BLOOD COUNT 5.12 10^6/uL (4.30-6.10); WHITE BLOOD COUNT 7.5 10^3/uL (4.0-10.0)
[2020-02-06 10:03] VITALS: BP 128/77
[2020-02-06 10:29] LABS: ALBUMIN 3.7 GM/DL (3.2-5.2); ALT/SGPT 36 U/L (12-78); BILIRUBIN,TOTAL 0.5 MG/DL (0.2-1.0); BLOOD UREA NITROGEN 14 MG/DL (7-18); CALCIUM LEVEL 9.5 MG/DL (8.8-10.2); CARBON DIOXIDE LEVEL 28 MEQ/L (21-32); CHLORIDE LEVEL 104 MEQ/L (98-107); CREATININE FOR GFR 0.78 MG/DL (0.70-1.30); GLOMERULAR FILTRATION RATE > 60.0 (>42); GLUCOSE, FASTING 99 MG/DL (70-100); POTASSIUM SERUM 4.1 MEQ/L (3.5-5.1); SODIUM LEVEL 137 MEQ/L (136-145); TOTAL PROTEIN 7.4 GM/DL (6.4-8.2)
[2020-02-06 10:33] LABS: FREE T4 1.03 NG/DL (0.76-1.46); THYROID STIMULATING HORMONE 0.879 uIU/ML (0.358-3.740)
--- NOTE | 2020-02-06 11:15 | MEDONCPDOC ---
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 He has a long history of heavy tobacco use which continues at this time. His tobacco use has been complicated by both atherosclerotic vascular disease and more recently by a diagnosis of extensive stage small cell carcinoma of the lung. His history of present illness dates to 2018, when he developed generalized, rapidly progressive bone pain particularly in the left shoulder as well as pain in the right leg and low back. He underwent multiple diagnostic imaging studies with varying interpretations of the findings initially. However, a radio nuclei bone scan performed May 30, 2019 reported findings consistent with metastatic disease. Those findings included intense uptake consistent with metastases in the right iliac bone adjacent to the sacroiliac joints, a focus of disease in the right femur, pathologic uptake in the T12 vertebral body, in L3, in L10 and in L11, as well as suspicious lesions in multiple ribs and the left scapula. Due to these findings, he was directed to the emergency department at [facility] er on June 09, 2019. CT scan of the chest on that date documented a right hilar and mediastinal mass with extension into the adjacent right upper lobe of the lung. The mass measured approximately 6.3 cm x 7.2 cm with adjacent enlarged lymph nodes superior to the mass. Note was also made of scattered atherosclerotic calcifications of the thoracic aorta with compression of the superior vena cava and encasement of the right upper lobe pulmonary artery by tumor. A fracture was noted in the lateral aspect of the right 8th rib. Mr. Stoner was hospitalized and narcotic analgesics were initiated for control of pain. CT scan of the abdomen showed an infrarenal abdominal aortic aneurysm. The patient underwent tissue sampling on June 10, 2019 (specimen [id number]) with findings of small cell carcinoma lung. Mr. Stoner began systemic chemotherapy using carboplatin at AUC of 6 on day 1 and etoposide 100 mg/m2 daily on days 1-3 of each cycle with cycle #1 beginning on June 11, 2019. A second cycle of treatment began on July 02, 2019, and a third cycle began on July 23, 2019. A fourth cycle began on August 18, 2019. The patient experienced significant reduction in pain following each of the cycles of myelosuppressive antineoplastic therapy. A chest radiogram early in his course documented a rapid and significant favorable response to treatment with shrinkage of the tumor. Following four cycles of carboplatinum and etoposide the patient elected to begin atezolizumab single-agent maintenance immunotherapy. Interval History This a a 69 year old man. He has Extensive disease small cell lung cancer. He has adrenal and bone mets. He is currently on Atezolizumab Maintenance . New complaint. The state the asymmetry in his face is worse. He is drooling. He recently had his seizure medication changed. Allergies Coded Allergies: No Known Allergies (Unverified , 06/09/19) Home Medications Active Scripts Hydromorphone HCl (Hydromorphone HCl) 4 Mg Tablet, 1-2 TAB PO Q6HP PRN for pain MDD 8, #240 TAB Take 1 to 2 tablets po q 6 hours prn pain, max of 8 per day Prov:MAYTE YO MD 01/16/20 Reported Medications Calcium Carbonate/Vitamin D3 (Calcium 500-Vit D3 400 Tablet) 1 Each Tablet, 1 TAB PO BID for 30 Days, #60 TAB 02/06/20 Carbamazepine (Carbamazepine) 200 Mg Tablet, 200 MG PO BID 02/06/20 Levetiracetam (Keppra) 500 Mg Tablet, 500 MG PO, TAB 01/16/20 Aspirin (Ecotrin) 81 Mg Tablet.dr, 2 TAB PO DAILY for pain for 30 Days, #30 TAB 12/26/19 Allopurinol (Allopurinol) 100 Mg Tablet, 100 MG PO DAILY, TAB 12/17/19 Sennosides (Senna) 8.6 Mg Tablet, 2 TAB PO BID 12/17/19 Pravastatin Sodium (Pravastatin Sodium) 40 Mg Tablet, 40 MG PO QPM WITH EVENING MEAL 06/09/19 Tamsulosin Hcl (Tamsulosin HCl) 0.4 Mg Capsule, 0.4 MG PO DAILY 06/09/19 Discontinued Reported Medications Phenytoin Sodium Extended (Phenytoin Sodium Extended) 100 Mg Capsule, 300 MG PO QHS, CAP 01/16/20 Past Medical History Past Medical History: CVA in November 2019 Coronary artery disease with stents COPD Asthma BPH Past Surgical History: Umbilical hernai repair Review of Systems General: Reports: Normal Appetite; Denies: Chills, Fatigue, Malaise Constitutional: Denies: Chills, Fatigue, Weight Loss Eyes: Denies: Vision change HEENT: Denies: Head Aches, Dysphagia, Sore Throat, Epistaxis Skin: Denies: Rash, Lesions, Jaundice, Bruising Pulmonary: Denies: Dyspnea, Cough Cardiovascular: Denies: Chest Pain, Palpitations, Orthopnea, Edema Gastrointestinal: Denies: Nausea, Vomiting, Diarrhea Genitourinary: Denies: Dysuria, Frequency, Incontinence Hematologic: Denies: Bruising, Pet[place]chia Neurological: Reports: Other Symptoms (flat right nasolabial folds , st ates drooling getting worse. Seizure activity better. ) Psych: Reports: Mood Normal Physical Examination General Exam: Positive: Alert, No Acute Distress Eye Exam: Positive: PERRLA, Conjunctiva & lids normal; Negative: Sclera icteric ENT EXAM: Positive: Atraumatic, Mucous membr. moist/pink, Other ENT (flat right nasolabial fold ) Neck Exam: Reports: Supple; Denies: JVD, Thyromegaly, Lymphadenopathy Chest Exam: Positive: Clear to auscultation, Normal air movement Heart Exam: Positive: Rate Normal Abdomen Exam: Positive: Normal bowel sounds; Negative: Tenderness, Hepatospenomegaly, Mass Extremity Exam: Negative: Clubbing, Cyanosis, Edema Skin Exam: Positive: Nl turgor and temperature; Negative: Rash, Breakdown, Lesion Neuro Exam: Positive: Normal Speech, Normal Tone Psych Exam: Positive: Mental status NL Ht / Wt Ht / Wt Height:5 Feet 9 Inches Weight: 83.300 Kg Vital Signs Vital Signs Date Time Temp Pulse Resp B/P (MAP) Pulse Ox O2 Delivery O2 Flow Rate FiO2 02/06/20 10:03 97.4 87 18 128/77 (94) 93 Room Air Laboratory Data Laboratory Tests Test 02/06/20 09:36 Blood Urea Nitrogen 14 MG/DL (7-18) Creatinine 0.78 MG/DL (0.70-1.30) Glomerular Filtration Rate > 60.0 (>42) Fasting Glucose 99 MG/DL (70-100) Calcium Level 9.5 MG/DL (8.8-10.2) Total Bilirubin 0.5 MG/DL (0.2-1.0) Aspartate Amino Transf (AST/SGOT) 24 U/L (7-37) Alanine Aminotransferase (ALT/SGPT) 36 U/L (12-78) Total Protein 7.4 GM/DL (6.4-8.2) Sodium Level 137 MEQ/L (136-145) Albumin 3.7 GM/DL (3.2-5.2) Alkaline Phosphatase 139 U/L (45-117) H Potassium Level 4.1 MEQ/L (3.5-5.1) Chloride Level 104 MEQ/L (98-107) Carbon Dioxide Level 28 MEQ/L (21-32) Anion Gap 5 MEQ/L (8-16) L Laboratory Tests 02/06/20 09:36 Assessment/Plan 1. Extensive stage small cell lung cancer: The patient presents today for maintenance Tecentriq. Is tolerating treatment well overall. Laboratory data was reviewed with the patient and is sufficient to continue on with treatment. He will proceed with therapy today. CEA level was reviewed with the patient is stable. 2. Pain secondary to malignancy: 3. Fatigue: We did discuss that immunotherapy can lead to thyroid dysfunction or adrenal insufficiency. We will check thyroid studies and a cortisol level when he returns. 4. CT scan showing a mixed picture. Improvement in the lung disease. Suggest ion of progression outside of the lung . 5. The feels his neurological finding are worse . Plan; Continue with Tecentriq ordered for today. consider switching to another agent . Plan; Get an MRI of his brain to see if he has metastatic disease in his brain. FOLLOWUP: 3 weeks CC TO: Primary Care Provider: Niles Solis MD Referring Provider: MAYTE YO MD Feb 06, 2020 10:30
--- NOTE | 2020-02-06 11:30 | ONC.PHACK ---
CHEMO ADMIN CHECKLIST Order Contains Pt ID: Name, Order on Chemo Order Form?: Yes Order Form Includes ALL: Correct Tx Day, Correct Date, Correct Cycle Number Pt ID on Order form Matches: Pt ID on PHA Label Med on Chemo OrderForm Matches: PHA Label, Med Used for Preparation [facility] Feb 06, 2020 11:30
--- NOTE | 2020-02-19 15:28 | MEDONCTEEN ---
Date/Time of Encounter Date of Encounter: Feb 19, 2020 Time of Encounter: 15:00 Telephone Encounter i spoke with the patient' s . She states that the patient condition has deteriorated. She wants to know if doing the MRI is a benefit. I told her that she could bring him to the emergency room. He could be assess for possible CT scan. That he might be candidate for cranial radiation . She stated that radiation therapy was contrary to the patient 's wishes. I offered hospice. If the patient's condition was deteriorating he would not be a candidate for further systemic therapy. She stated that palliative care came to her home and she does not want any help. She will proved care. MAYTE YO MD Feb 19, 2020 15:28
== END | disposition home or self-care (01) ==
LOC: M ONCM 06-11 09:54
PROVIDERS: ATTEND Internal Medicine Hematology & Oncology
DX: C34.01 Malignant neoplasm of right main bronchus (principal); C79.51 Secondary malignant neoplasm of bone; C79.70 Secondary malignant neoplasm of unspecified adrenal gland; I73.9 Peripheral vascular disease, unspecified; I67.9 Cerebrovascular disease, unspecified; Z87.891 Personal history of nicotine dependence; Z79.899 Other long term (current) drug therapy; Z79.82 Long term (current) use of aspirin
CPT/HCPCS: 36591; 71046; 80053; 82378; 82533; 83735; 84439; 84443; 85025; 85027; 85049; 85055; 96367; 96375; 96413; 96415; 96417; G0463; J1100; J1453; J1642; J2469; J9022; J9045; J9181